=== PATIENT | female | born 1990 | race Caucasian/White ===

== ENCOUNTER 2016-06-09 16:44 | Outpatient (CLI) | payer MEDICAID ==
[2016-06-09 17:40] LABS: APPEARANCE,URINE CLEAR; BILIRUBIN,URINE NEGATIVE (NEGATIVE); GLUCOSE, URINE NEGATIVE (NEGATIVE); KETONES,URINE NEGATIVE (NEGATIVE); LEUKOCYTE ESTERASE,URINE NEGATIVE (NEGATIVE); NITRITE,URINE NEGATIVE (NEGATIVE); PROTEIN,URINE NEGATIVE (NEGATIVE); URINE SPECIFIC GRAVITY 1.009; UROBILINOGEN,URINE NEGATIVE mg/dL (<2.0)
[2016-06-09 18:02] LABS: URINE BARBITURATES SCREEN NEGATIVE; URINE METHADONE SCREEN NEGATIVE; URINE PHENCYCLIDINE SCREEN NEGATIVE
--- NOTE | 2016-06-09 18:12 | Non Stress Test Report ---
Non Stress Test Datetime Report Generated by CPN: 06/09/2016 18:12 DEMOGRAPHIC EGA NST: 34.6 INDICATION Indication for Study: Ordered by Provider Indication for Study (NST) Other: LC MONITORING Monitor Explained: Monitor Explained; Test Explained; Patient Verbalized Understanding Time on Monitor: 06/09/2016 17:07 Time off Monitor: 06/09/2016 17:53 NST Duration: 46 NST INTERVENTIONS NST Interventions: PO Hydration Physician Notified NST: Dr. Jonas BABY A: [id number] BABY A Movement : Present Contraction Frequency : occ FHR Baseline : 135 Accelerations : 15X15 Decelerations : None Variability : Moderate 6-25bpm NST Review: Meets Criteria for Reactive NST NST Review and Verified By : Chun manriquez RNC NST Results: Reactive NST REPORT Report Trigger: Send Report
--- NOTE | 2016-06-10 04:47 | L&D Admission Assessment ---
LD ADM ASMT Datetime Report Generated by CPN: 06/10/2016 04:45 WEIGHT Weight (lb): 169 (06/09/2016 17:06:QS system process) Weight (kg): 76.8 (06/09/2016 17:06:QS system process) BMI: 30.9 (06/09/2016 17:06:QS system process) PAIN Pain Scale: 3 (06/09/2016 17:21:Malinda Carlisle RN) Pain Presence: Constant (06/09/2016 17:21:Malinda Harmonmes, RN) Pain Type: Pressure; Ache (06/09/2016 17:21:Malinda Orestes, RN) Pain Location: Back; Perineum (06/09/2016 17:21:Malinda Orestes, RN) Pain Related to Contraction: Unsure (06/09/2016 17:21:Malinda Orestes, RN) Pain Comments: pt states she has been up on her feet all day working (06/09/2016 17:13:Malinda Carlisle, RN) NEURO Level of Consciousness: Fully Conscious (06/09/2016 17:21:Malinda Orestes, RN) Headache: Denies (06/09/2016 17:21:Malinda Orestes, RN) Dizziness: No (06/09/2016 17:21:Malinda Orestes, RN) Blurred Vision: No (06/09/2016 17:21:Malinda Orestes, RN) Extremity Numbness/Tingling : None (06/09/2016 17:21:Malinda Orestes, RN) Extremity Movement: Full Range of Motion (06/09/2016 17:21:Malinda Orestes, RN) CARDIOVASCULAR Heart Rhythm: Regular (06/09/2016 17:21:Malinda Orestes, RN) Nailbeds: [place] (06/09/2016 17:21:Malinda Orestes, RN) Capillary Refill: Less than 3 Seconds (06/09/2016 17:21:Malinda Orestes, RN) Lower Extremities Edema: None (06/09/2016 17:21:Malinda Orestes, RN) Lower Extremities Edema Degree: None (06/09/2016 17:21:Malinda Orestes, RN) Upper Extremities Edema: None (06/09/2016 17:21:Malinda Orestes, RN) Upper Extremities Edema Degree: None (06/09/2016 17:21:Malinda Orestes, RN) Facial Edema: None (06/09/2016 17:21:Malinda Orestes, RN) RESPIRATORY Respiratory Effort: Unlabored; Regular Rhythm; Equal Expansion (06/09/2016 17:21:Malinda Orestes, RN) Breath Sounds, Left: Clear and Equal (06/09/2016 17:21:Malinda Orestes, RN) Breath Sounds, Right: Clear and Equal (06/09/2016 17:21:Malinda Orestes, RN) Cough Productivity: None (06/09/2016 17:21:Malinda Orestes, RN) GASTROINTESTINAL Nausea/Vomiting: Denies (06/09/2016 17:21:Malinda Carlisle RN) Bowel Sounds: Normoactive (06/09/2016 17:21:Malinda Carlisle RN) RUQ Epigastric Pain: Denies (06/09/2016 17:21:Malinda Carlisle RN) Bowel Patterns: Soft, Formed Stool (06/09/2016 17:21:Malinda Carlisle RN) Hemorrhoids: None (06/09/2016 17:21:Malinda Carlisle RN) Diet Type: Regular diet (06/09/2016 17:21:Malinda Carlisle RN) Last Meal: 06/09/2016 13:00 (06/09/2016 17:21:Malinda Carlisle RN) GENITOURINARY Bladder: Nondistended (06/09/2016 17:21:Malinda Carlisle RN) Frequency of Urination: No (06/09/2016 17:21:Malinda Carlisle RN) Urination Burning: No (06/09/2016 17:21:Malinda Carlisle RN) CVA Tenderness: No (06/09/2016 17:21:Malinda Carlisle RN) Vaginal Bleeding: None (06/09/2016 17:21:Malinda Carlisle RN) Vaginal Discharge Amount: None (06/09/2016 17:21:Malinda Carlisle RN) Vaginal Discharge Color: N/A (06/09/2016 17:21:Malinda Orestes, RN) INTEGUMENTARY Skin Color: Normal for Race (06/09/2016 17:21:Malinda Carlisle, RN) Skin Temperature: Warm (06/09/2016 17:21:Malinda Carlisle, RN) Skin Moisture: Dry (06/09/2016 17:21:Malinda Carlisle, RN) AMBROSIO SKIN ASSESSMENT Ambrosio Scale Sensory Perception: No Impairment- Responds to verbal commands. Has no sensory deficit which would limit ability to feel or voice pain or discomfort (06/09/2016 17:21:Malinda Carlisle RN) Ambrosio Scale Moisture: Rarely Moist- Skin is usually dry. Linen only requires changing at routine intervals (06/09/2016 17:21:Malinda Carlisle RN) Ambrosio Scale Activity: Walks Frequently- Walks outside the room at least twice a day and inside room at least every 2 hours during the day. (06/09/2016 17:21:Malinda Carlisle RN) Ambrosio Scale Mobility: No Limitations- Makes major and frequent changes in position without assistance (06/09/2016 17:21:Malinda Carlisle RN) Ambrosio Scale Nutrition: Excellent- Eats most of every meal. Never refuses a meal. Usually eats a total of 4 or more servings of meat and dairy products. Occasionally eats between meals. Does not require supplementation (06/09/2016 17:21:Malinda Carlisle RN) Ambrosio Scale Friction and Shear: No Apparent Problem- Moves in bed and in chair independently and has sufficient muscle strength to lift up completely during move. Maintains good position in bed or chair at all times (06/09/2016 17:21:Malinda Carlisle RN) Ambrosio Scale Total: 23 (06/09/2016 17:21:QS system process) Ambrosio Scale Risk: No Risk of Pressure Ulcer Noted at this Time (06/09/2016 17:21:QS system process) SUPPORT Emotional State: Calm/Relaxed (06/09/2016 17:21:Malinda Carlisle RN) SAFETY Call [place] Within Reach: Yes (06/09/2016 17:21:Malinda Carlisle RN) Side Rails Up: Yes (06/09/2016 17:21:Malinda Carlisle RN) Bed Wheels Locked: Yes (06/09/2016 17:21:Malinda Carlisle RN) Arm Bands Present: Yes (06/09/2016 17:21:Malinda Carlisle RN) Isolation: [place] (06/09/2016 17:21:Malinda Carlisle RN)
--- NOTE | 2016-06-10 04:47 | L&D General Admission ---
General Admit Datetime Report Generated by CPN: 06/10/2016 04:45 INFORMATION Patient Age: 25 (05/30/2015 23:26:QS system process) EDC: 07/15/2016 00:00 (06/09/2016 17:03:Malinda Carlisle RN) : 6 (06/09/2016 17:03:Malinda Carlisle RN) Para: 4 (06/09/2016 18:04:Malinda Carlisle RN) Para: 4 (06/09/2016 17:03:Malinda Carlisle RN) Term: 4 (06/09/2016 17:03:Malinda Carlisle RN) : 0 (06/09/2016 17:03:Malinda Carlisle RN) Spontaneous Abortions: 0 (06/09/2016 17:03:Malinda Carlisle RN) Induced Abortions: 0 (06/09/2016 17:03:Malinda Carlisle RN) Livin (06/09/2016 17:03:Malinda Carlisle RN) Cesareans: 0 (06/09/2016 17:03:Malidna Carlisle RN) VBACs: 0 (06/09/2016 17:03:Malinda Carlisle RN) Ectopic: 1 (06/09/2016 17:03:Malinda Carlisle RN) Multiple Births: 0 (06/09/2016 17:03:Malinda Carlisle RN) Baby, Number in Womb: 1 (06/09/2016 18:04:Malinda Carlisle RN) Baby, Number in Womb: 1 (06/09/2016 17:03:Malinda Carlisle RN) CARE Primary Ear Specialist: [facility] (06/09/2016 17:03:Malinda Carlisle RN) Height (in): 61 (06/09/2016 17:06:QS system process) Height (in): 62 (02/03/2016 10:19:QS system process) Height (in): 62 (01/12/2016 21:54:QS system process) Height (in): 62 (12/01/2015 08:22:QS system process) Height (in): 62 (11/25/2015 21:42:QS system process) Height (in): 62 (11/19/2015 19:22:QS system process) Height (in): 62 (09/04/2015 15:53:QS system process) Height (in): 62 (08/26/2015 18:17:QS system process) Height (in): 62 (05/31/2015 04:38:QS system process) Height (in): 62 (05/30/2015 23:26:QS system process) ALLERGIES Medication Allergy: No (06/09/2016 17:03:Malinda Carlisle RN) Medication Allergies: No Known Allergies (11/25/2015) (12/01/2015 08:22:QS system process) Medication Allergies: No Known Allergies (09/04/2015) (11/19/2015 19:22:QS system process) Medication Allergies: No Known Allergies (11/04/2013) (05/30/2015 23:26:QS system process) Latex Allergy: No Latex Allergies (06/09/2016 17:03:Malinda Carlisle RN) COMMUNICATION Primary Language: Danish (06/09/2016 17:03:Malinda Carlisle RN) Medical Tx Preferred Language: Danish (06/09/2016 17:03:Malinda Carlisle, RN) DEMOGRAPHICS Address: [address] [place] [address] (11/25/2015 21:42:QS system process) Address: [address] [place] [address] (11/19/2015 19:22:QS system process) Address: [address] [place] [address] (09/04/2015 15:53:QS system process) Address: [address] [place] [address] (05/30/2015 23:26:QS system process) Zipcode: [address] (11/25/2015 21:42:QS system process) Zipcode: [address] (05/30/2015 23:26:QS system process) Home (09/04/2015 15:53:QS system process) Home (05/30/2015 23:26:QS system process) Work (02/03/2016 10:19:QS system process) SSN: [id number] (05/30/2015 23:26:QS system process) Next of Kin Name: BHARTI ABRRERA (11/25/2015 21:42:QS system process) Next of Kin Name: TRIXIE VANIA (05/30/2015 23:26:QS system process) Next of Kin (11/25/2015 21:42:QS system process) Next of Kin (05/30/2015 23:26:QS system process) Next of Kin Relationship: FA (11/25/2015 21:42:QS system process) Next of Kin Relationship: OR (05/30/2015 23:26:QS system process) Date of : 1990 (05/30/2015 23:26:QS system process) Marital Status: (05/30/2015 23:26:QS system process) Sex: Female (05/30/2015 23:26:QS system process) Race: (05/30/2015 23:26:QS system process) Ethnicity: Non- or (05/30/2015 23:26:QS system process) Faith: None (05/30/2015 23:26:QS system process) LABS Hemoglobin: 12.2 (11/25/2015 22:04:QS system process) Hemoglobin: 12.3 (11/19/2015 19:30:QS system process) Hematocrit: 37.1 (11/25/2015 22:04:QS system process) Hematocrit: 38.4 (11/19/2015 19:30:QS system process) MCV: 86 (11/25/2015 22:04:QS system process) MCV: 87 (11/19/2015 19:30:QS system process)
--- NOTE | 2016-06-10 04:47 | Antepartum Discharge Summary ---
Antepartum DC Datetime Report Generated by CPN: 06/10/2016 04:45 DIET/ACTIVITY/RESTRICTIONS Diet: Regular (06/09/2016 18:04:Malinda Orestes, RN) Activity: Normal Activity (06/09/2016 18:04:Malinda Orestes, RN) TEACHING/INSTRUCTIONS/REFERRALS Instructions Given To: pt (06/09/2016 18:04:Malinda Carlisle, RN) Instructions Understood: Patient Verbalized Understanding (06/09/2016 18:04:Malinda Orestes, RN) Referrals: None (06/09/2016 18:04:Malinda Carlisle RN) Educational Materials- Other: kick counts (06/09/2016 18:04:Malinda Carlisle RN) DISCHARGE INFORMATION Discharged AMA: No (06/09/2016 18:04:Malinda Carlisle RN) Discharge Date/Time: 06/09/2016 17:58 (06/09/2016 18:04:Malinda Carlisle RN) Discharged To: Home (06/09/2016 18:04:Malinda Carlisle RN) Discharge Provider Name: Dr. Mcdaniel (06/09/2016 18:04:Malinda Carlisle RN) Discharge Method: Ambulatory (06/09/2016 18:04:Malinda Carlisle RN) Condition: Stable (06/09/2016 18:04:Malinda Carlisle RN) FOLLOW UP INFORMATION Follow Up With: [facility] (06/09/2016 18:04:Malinda Carlisle RN) Follow Up On: As Scheduled (06/09/2016 18:04:Malinda Carlisle RN) Follow Up Phone Number: [facility] - (06/09/2016 18:04:Malinda Carlisle RN) Comments: Pt ambulated off unit in stable condition with [place] pitcher in hand, instructed to drink 4-6 pitchers daily, pt refused Vistiril and was instructed to follow up at scheduled appointment at [facility] tomorrow. Pt instructed on when to return to hospitla. No questions or concerns expressed by pt at this time. (06/09/2016 18:04:Malinda Carlisle RN)
--- NOTE | 2016-06-10 04:47 | L&D Flow Sheet ---
LD Flowsheet Datetime Report Generated by CPN: 06/10/2016 04:45 Datetime: 06/09/2016 17:50 Communication Communication Comments: Order recieved from DrKeshav Jonas to d/c pt home. Pt unable to take offered Vistiril becase she has nobody to pick her up and she needs to drive home. PT has appointment at [facility] in the morning (Zee Butler, [facility]) Datetime: 06/09/2016 17:46 Vaginal Exam Exam by: A. Orestes RN (Zee Luke, RNC) Vaginal Exam Comments: closed/thick/high (Zee Luke, RNC) Datetime: 06/09/2016 17:21 Pain Pain Scale: 3 (Malinda Orestes, RN) Pain Presence: Constant (Malinda Orestes, RN) Pain Type: Pressure; Ache (Malinda Orestes, RN) Pain Location: Back; Perineum (Malinda Orestes, RN) Pain Relief Measures: Comfort Measures (Malinda Orestes, RN) Vaginal Bleeding: None (Malinda Orestes, RN) Maternal Assessment Level of Consciousness: Fully Conscious (Malinda Orestes, RN) Headache: Denies (Malinda Orestes, RN) Breath Sounds, Left: Clear and Equal (Malinda Orestes, RN) Breath Sounds, Right: Clear and Equal (Malinda Orestes, RN) Nausea/Vomiting: Denies (Malinda Orestes, RN) RUQ Epigastric Pain: Denies (Malinda Orestes, RN) Datetime: 06/09/2016 17:13 Pain Assessment Comments: pt states she has been up on her feet all day working (Malinda Orestes, RN) Patient Care I/O Interventions: Popsicle; Clear Liquids Given (Malinda Orestes, RN) Datetime: 06/09/2016 17:08 Vital Signs NBP Sys/Lizeth/Mean (mmHg): 96 (QS system process) : 57 (QS system process) : 69 (QS system process) Pulse: 76 (QS system process)
--- NOTE | 2016-06-10 04:47 | L&D Discharge Summary ---
OB Discharge Summary Datetime Report Generated by CPN: 06/10/2016 04:45 DISCHARGE DIAGNOSIS Diagnosis/Symptoms: Reassuring Surveillance - Annotate Details Gestation: 34.6 Number of Babies in Womb: 1 Parity: 4 DIET/ACTIVITY/RESTRICTIONS Diet: Regular Activity: Normal Activity TEACHING/INSTRUCTIONS/REFERRALS Instructions Given To: pt Instructions Understood: Patient Verbalized Understanding Referrals: None Educational Materials- Other: kick counts DISCHARGE INFORMATION Discharged AMA: No Discharge Date/Time: 06/09/2016 17:58 Discharged To: Home Discharge Provider Name: Jonas Discharge Method: Ambulatory Condition: Stable FOLLOW UP INFORMATION Follow Up With: [facility] Follow Up On: As Scheduled Follow Up Phone Number: [facility] - Comments: Pt ambulated off unit in stable condition with [place] pitcher in hand, instructed to drink 4-6 pitchers daily, pt refused Vistiril and was instructed to follow up at scheduled appointment at [facility]. Pt instructed on when to return to hospitla. No questions or concerns expressed by pt at this time.
--- NOTE | 2016-06-10 04:47 | L&D Current Admission ---
Current Admit Datetime Report Generated by CPN: 06/10/2016 04:45 ADMISSION INFORMATION Chief Complaint: pressure, low back pain (06/09/2016 17:21:Malinda Carlisle RN)
== END 2016-06-09 17:58 | disposition home or self-care (01) ==
LOC: LC 16:44
PROVIDERS: ATTEND Obstetrics & Gynecology
PROC: 4A1HXCZ Monitoring of Products of Conception, Cardiac Rate, External Approach (ICD-10-PCS; principal; 2016-06-09)
DX: Z34.93 Encounter for supervision of normal pregnancy, unspecified, third trimester (principal); Z3A.34 34 weeks gestation of pregnancy
CPT/HCPCS: 59025; 80307; 81001

== ENCOUNTER 2016-06-22 18:37 | Outpatient (CLI) | payer MEDICAID ==
[2016-06-22 19:14] LABS: APPEARANCE,URINE CLOUDY; BILIRUBIN,URINE NEGATIVE (NEGATIVE); GLUCOSE, URINE NEGATIVE (NEGATIVE); KETONES,URINE NEGATIVE (NEGATIVE); LEUKOCYTE ESTERASE,URINE LARGE (NEGATIVE); NITRITE,URINE NEGATIVE (NEGATIVE); PROTEIN,URINE NEGATIVE (NEGATIVE); URINE SPECIFIC GRAVITY 1.005; UROBILINOGEN,URINE NEGATIVE mg/dL (<2.0)
[2016-06-22 19:34] LABS: URINE BARBITURATES SCREEN NEGATIVE; URINE METHADONE SCREEN NEGATIVE; URINE OPIATES LOW NEGATIVE; URINE PHENCYCLIDINE SCREEN NEGATIVE
[2016-06-22 19:47] LABS: AMNISURE (ROM) NEGATIVE (NEGATIVE)
== END 2016-06-22 20:23 | disposition home or self-care (01) ==
LOC: ER 18:37 → LC 20:23
PROVIDERS: ATTEND Obstetrics & Gynecology
PROC: 4A1HXCZ Monitoring of Products of Conception, Cardiac Rate, External Approach (ICD-10-PCS; principal; 2016-06-22)
DX: O47.03 False labor before 37 completed weeks of gestation, third trimester (principal); Z3A.36 36 weeks gestation of pregnancy
CPT/HCPCS: 59025; 80307; 81001; 84112

== ENCOUNTER 2016-06-23 11:16 | Outpatient (CLI) | payer MEDICAID ==
[2016-06-23] MEDS ORDERED: LOPERAMIDE HCL 2 MG CAPSULE ONE (11:49)
--- NOTE | 2016-06-23 12:01 | L&D Flow Sheet ---
LD Flowsheet Datetime Report Generated by CPN: 06/23/2016 12:00 Datetime: 06/23/2016 11:53 Medication Comments: Immodium PO (Barb Marlatt, RN) Datetime: 06/23/2016 11:36 NBP Sys/Lizeth/Mean (mmHg): 101 (QS system process) : 56 (QS system process) : 76 (QS system process) Pulse: 76 (QS system process) Datetime: 06/23/2016 11:35 Level of Consciousness: Fully Conscious (Barb Rizo RN) DTR's/Clonus: DTRs 2+; No Clonus (Barb Rizo RN) Headache: Denies (Barb Rizo RN) Breath Sounds, Left: Clear and Equal (Barb Rizo RN) Breath Sounds, Right: Clear and Equal (Barb Rizo RN) Nausea/Vomiting: Denies (Barb Rizo RN) RUQ Epigastric Pain: Denies (Barb Rizo RN)
[2016-06-23 12:43] LABS: APPEARANCE,URINE CLOUDY; BILIRUBIN,URINE NEGATIVE (NEGATIVE); GLUCOSE, URINE NEGATIVE (NEGATIVE); KETONES,URINE 20 mg/dL (NEGATIVE); LEUKOCYTE ESTERASE,URINE LARGE (NEGATIVE); NITRITE,URINE NEGATIVE (NEGATIVE); PROTEIN,URINE NEGATIVE (NEGATIVE); URINE SPECIFIC GRAVITY 1.006; UROBILINOGEN,URINE NEGATIVE mg/dL (<2.0)
[2016-06-23 13:06] LABS: URINE BARBITURATES SCREEN NEGATIVE; URINE METHADONE SCREEN NEGATIVE; URINE OPIATES LOW NEGATIVE; URINE PHENCYCLIDINE SCREEN NEGATIVE
--- NOTE | 2016-06-23 13:40 | Non Stress Test Report ---
Non Stress Test Datetime Report Generated by CPN: 06/23/2016 13:40 DEMOGRAPHIC EGA NST: 36.6 INDICATION Indication for Study: Other Indication for Study (NST) Other: LC MONITORING Monitor Explained: Monitor Explained; Test Explained; Patient Verbalized Understanding Time on Monitor: 06/23/2016 11:35 Time off Monitor: 06/23/2016 13:25 NST Duration: 110 NST INTERVENTIONS NST Interventions: PO Hydration; IV Fluids Physician Notified NST: P. Flynn CNM BABY A Movement : Present Contraction Frequency : 4-11 FHR Baseline : 130 Accelerations : 15X15 Decelerations : None Variability : Moderate 6-25bpm NST Review: Meets Criteria for Reactive NST NST Review and Verified By : Heraclio Johnson RN NST Results: Reactive NST REPORT Report Trigger: Send Report
== END 2016-06-23 13:33 | disposition home or self-care (01) ==
LOC: LC 11:16
PROVIDERS: ATTEND Obstetrics & Gynecology
PROC: 4A1HXCZ Monitoring of Products of Conception, Cardiac Rate, External Approach (ICD-10-PCS; principal; 2016-06-23)
DX: O47.03 False labor before 37 completed weeks of gestation, third trimester (principal); O99.283 Endocrine, nutritional and metabolic diseases complicating pregnancy, third trimester; E86.0 Dehydration; Z3A.36 36 weeks gestation of pregnancy
CPT/HCPCS: 59025; 81005; 80307; J3490

== ENCOUNTER 2016-06-24 14:43 | Outpatient (CLI) | payer MEDICAID ==
[2016-06-24 15:19] LABS: APPEARANCE,URINE CLEAR; BILIRUBIN,URINE NEGATIVE (NEGATIVE); GLUCOSE, URINE NEGATIVE (NEGATIVE); KETONES,URINE NEGATIVE (NEGATIVE); LEUKOCYTE ESTERASE,URINE TRACE (NEGATIVE); NITRITE,URINE NEGATIVE (NEGATIVE); PROTEIN,URINE NEGATIVE (NEGATIVE); URINE SPECIFIC GRAVITY 1.006
[2016-06-24 15:52] LABS: URINE BARBITURATES SCREEN NEGATIVE; URINE METHADONE SCREEN NEGATIVE; URINE OPIATES LOW NEGATIVE; URINE PHENCYCLIDINE SCREEN NEGATIVE
--- NOTE | 2016-06-24 16:01 | L&D Flow Sheet ---
LD Flowsheet Datetime Report Generated by CPN: 06/24/2016 16:00 Datetime: 06/24/2016 15:21 Provider Reviewed Strip: Yes (Mariela Camp, RNC) Communication: Report Given to @ K Cooper CNM (Mariela Camp, RNC) Communication Comments: Provider given verbal report of arrival, history complaint and cervical exam. Plan discussed and orders received for discharge to home in one hour with no cervical change and reactive nst (Mariela Camp, RNC) Datetime: 06/24/2016 15:15 Frequency (min): 7-10 ([facility], [facility]) Quality: Mild ([facility], [facility]) Duration (sec): 40-45 [facility] Resting Tone (Palpate): Relaxed (Annotations: uterus soft to palpation) ([facility], [facility]) Pain Scale: 2 ([facility] Pain Presence: Intermittent ([facility], [facility]) Pain Type: Contraction ([facility], [facility]) Pain Location: Abdomen ([facility], [facility]) Pain Goal: 2 ([facility], [facility]) Pain Relief Measures: Comfort Measures ([facility], [facility]) Pain Coping: Talking Through Contractions (Annotations: smiling talking with fob no apparent distress noted) ([facility], [facility]) Membrane Status: Intact ([facility], [facility]) Vaginal Bleeding: None ([facility], [facility]) Level of Consciousness: Fully Conscious ([facility], [facility]) DTR's/Clonus: DTRs 2+; No Clonus ([facility], [facility]) Headache: Denies ([facility], [facility]) Breath Sounds, Left: Clear and Equal ([facility], [facility]) Breath Sounds, Right: Clear and Equal ([facility], RNC) Nausea/Vomiting: Denies ([facility], RNC) RUQ Epigastric Pain: Denies ([facility], [facility]) LaborFlag: Labor (QS system process) Datetime: 06/24/2016 15:12 Dilatation (cm): 4.5 ([facility], [facility]) Effacement (%): 50 ([facility], [facility]) Station: -2 ([facility], [facility]) Exam by: Camp, S ([facility], [facility]) Vaginal Bleeding: None ([facility]) Cervix, Consistency: Soft ([facility]) Cervix, Position: Midposition ([facility]) Datetime: 06/24/2016 15:09 Temperature (F): 98.1 ([facility], [facility]) Temperature (C): 36.7 (QS system process) LaborFlag: Labor (QS system process) Datetime: 06/24/2016 15:02 NBP Sys/Lizeth/Mean (mmHg): 91 (QS system process) : 59 (QS system process) : 69 (QS system process) Pulse: 113 (QS system process) Respirations: 16 (Mariela Camp, C) LaborFlag: Labor (QS system process) Datetime: 06/24/2016 14:30 Stage of : Labor ([facility]iela Middleton, [facility])
== END 2016-06-24 16:13 | disposition home or self-care (01) ==
LOC: LC 14:43
PROVIDERS: ATTEND Obstetrics & Gynecology
PROC: 4A1HXCZ Monitoring of Products of Conception, Cardiac Rate, External Approach (ICD-10-PCS; principal; 2016-06-24)
DX: O47.1 False labor at or after 37 completed weeks of gestation (principal); Z3A.37 37 weeks gestation of pregnancy
CPT/HCPCS: 59025; 80307; 81005

== ENCOUNTER 2016-06-30 16:44 | Outpatient (CLI) | payer MEDICAID ==
--- NOTE | 2016-06-30 16:59 | Non Stress Test Report ---
Non Stress Test Datetime Report Generated by CPN: 06/30/2016 16:59 DEMOGRAPHIC EGA NST: 37.0 INDICATION Indication for Study: Ordered by Provider VITAL SIGNS Temperature - NST: 98.1 Pulse - NST: 90 RESP - NST: 18 NBPSYS NST: 111 NBPDIA NST: 65 MONITORING Monitor Explained: Monitor Explained; Test Explained; Patient Verbalized Understanding Time on Monitor: 06/24/2016 15:20 Time off Monitor: 06/24/2016 16:05 NST Duration: 45 NST INTERVENTIONS NST Interventions: PO Hydration; Reposition Patient Physician Notified NST: Cooper, K BABY A: [id number] BABY A Movement : Present Contraction Frequency : irregular FHR Baseline : 150 Accelerations : 15X15 Decelerations : None Variability : Moderate 6-25bpm NST Review: Meets Criteria for Reactive NST NST Review and Verified By : Freddy Simpson RNC NST Results: Reactive NST REPORT Report Trigger: Send Report
[2016-06-30 17:50] LABS: APPEARANCE,URINE SLIGHTLY-CLOUDY; BILIRUBIN,URINE NEGATIVE (NEGATIVE); GLUCOSE, URINE 50 mg/dL (NEGATIVE); KETONES,URINE NEGATIVE (NEGATIVE); LEUKOCYTE ESTERASE,URINE MODERATE (NEGATIVE); NITRITE,URINE NEGATIVE (NEGATIVE); PROTEIN,URINE 100 mg/dL (NEGATIVE); URINE SPECIFIC GRAVITY 1.006; UROBILINOGEN,URINE NEGATIVE mg/dL (<2.0)
--- NOTE | 2016-06-30 18:00 | L&D Flow Sheet ---
LD Flowsheet Datetime Report Generated by CPN: 06/30/2016 18:00 Datetime: 06/30/2016 17:50 Patient Care IV/Blood Work: Labs Drawn (Serina Jonas, RN) Datetime: 06/30/2016 17:45 Patient Care IV/Blood Work: IV Started; IV Infusing per Order (Serina Jonas, RN) Datetime: 06/30/2016 17:41 Communication Comments: order received from Dr. Nixon to start IV and infuse LR at 125 mL/hr, order received for CBC (Serina Jonas, RN) Datetime: 06/30/2016 17:31 NBP Sys/Lizeth/Mean (mmHg): 100 (QS system process) : 55 (QS system process) : 73 (QS system process) Pulse: 93 (QS system process) LaborFlag: OB Triage (QS system process) Datetime: 06/30/2016 17:28 Membrane Status: Intact (Serina Mcdaniel, RN) Vaginal Bleeding: Moderate (Serina Mcdaniel, RN) DTR's/Clonus: DTRs 2+; No Clonus (Serina Mcdaniel, RN) Headache: Denies (Serina Mcdaniel, RN) Datetime: 06/30/2016 17:17 Maternal Assessment Level of Consciousness: Fully Conscious (Serina Mcdaniel, RN) DTR's/Clonus: DTRs 2+; No Clonus (Serina Mcdaniel, RN) Headache: Denies (Serina Mcdaniel, RN) Breath Sounds, Left: Clear and Equal (Serina Mcdaniel, RN) Breath Sounds, Right: Clear and Equal (Serinacherie Mcdaniel, RN) Nausea/Vomiting: Denies (Serina Jonas, RN) RUQ Epigastric Pain: Denies (Serina Mcdaniel, RN) Datetime: 06/30/2016 17:16 NBP Sys/Lizeth/Mean (mmHg): 108 (QS system process) : 65 (QS system process) : 81 (QS system process) Pulse: 105 (QS system process) LaborFlag: OB Triage (QS system process) Datetime: 06/30/2016 17:14 Vaginal Exam Dilatation (cm): 5.0 (Serina Mcdaniel, RN) Effacement (%): 50 (Serina Mcdaniel, RN) Station: -3 (Serina Mcdaniel, RN) Exam by: Dr. Nixon (Serina Jonas, RN) Communication Communication: Provider at Bedside (Serina Jonas, RN) Datetime: 06/30/2016 17:07 Vital Signs Stage of : OB Triage (Serina Jonas, RN) Datetime: 06/30/2016 17:01 NBP Sys/Lizeth/Mean (mmHg): 127 (QS system process) : 86 (QS system process) : 101 (QS system process) Pulse: 109 (QS system process) LaborFlag: Labor (QS system process) Datetime: 06/30/2016 17:00 Communication Comments: patient to L_D for bright red vaginal bleeding after intercourse, abdomen relaxed, patient in no pain, Dr. Nixon reviewing strip (Serina Mcdaniel RN)
[2016-06-30 18:10] LABS: ABSOLUTE LYMPHOCYTES (AUTO) 1.5 10^3/uL (0.5-4.7); ABSOLUTE MONOCYTES (AUTO) 0.7 10^3/uL (0.1-1.4); ABSOLUTE NEUT (AUTO) 5.5 10^3/uL (1.7-8.2); BASOPHILS % (AUTO) 0.3 % (0-2); EOSINOPHILS % (AUTO) 0.5 % (0-6); HEMATOCRIT 28.2 % (36.0-47.0); HEMOGLOBIN 9.2 g/dL (12.0-15.5); HGB HCT DIFFERENCE -0.6; LYMPHOCYTES % (AUTO) 19.2 % (13-45); MEAN CORPUSCULAR HEMOGLOBIN 25.7 pg (27.0-33.4); MEAN CORPUSCULAR HGB CONC 32.6 g/dL (32.0-36.0); MEAN CORPUSCULAR VOLUME 79 fl (80-97); MONOCYTES % (AUTO) 9.2 % (3-13); RED BLOOD COUNT 3.58 10^6/uL (3.72-5.28); RED CELL DISTRIBUTION WIDTH 14.1 % (11.5-14.0); SEGMENTED NEUTROPHILS % (AUTO) 70.8 % (42-78); WHITE BLOOD COUNT 7.7 10^3/uL (4.0-10.5)
[2016-06-30 18:17] LABS: URINE BARBITURATES SCREEN NEGATIVE; URINE METHADONE SCREEN NEGATIVE; URINE OPIATES LOW NEGATIVE; URINE PHENCYCLIDINE SCREEN NEGATIVE
--- NOTE | 2016-06-30 20:00 | L&D Flow Sheet ---
LD Flowsheet Datetime Report Generated by CPN: 06/30/2016 20:00 Datetime: 06/30/2016 19:46 NBP Sys/Lizeth/Mean (mmHg): 105 (QS system process) : 60 (QS system process) : 76 (QS system process) Pulse: 75 (QS system process) LaborFlag: OB Triage (QS system process) Datetime: 06/30/2016 19:41 Vaginal Bleeding: None (Crystal Abi, RN) Datetime: 06/30/2016 19:31 NBP Sys/Lizeth/Mean (mmHg): 105 (QS system process) : 61 (QS system process) : 76 (QS system process) Pulse: 87 (QS system process) LaborFlag: OB Triage (QS system process) Datetime: 06/30/2016 19:25 Monitor Mode: External; Palpation (Crystal Meredith, RN) Frequency (min): 1 (Crystal Meredith, RN) Quality: Mild (Crystal Abi, RN) Duration (sec): 50 (Crystal Abi, RN) Duration Criteria: Less than Two 120 Second Contractions (Crystal Abi, RN) Resting Tone (Palpate): Relaxed (Crystal Abi, RN) Monitor Mode: External US (Crystal Meredith, RN) FHR Baseline Rate : 140 (Crystal Abi, RN) Variability: Moderate 6-25 bpm (Crystal Meredith, RN) Accelerations: 15X15 (Crystal Meredith, RN) Decelerations: None (Crystal Abi, RN) Patient Position/Activity: Right Tilt; Semi-Fowlers (Crystal Meredith, RN) I/O Interventions: Clear Liquids Given (Crystal Abi, RN) Datetime: 06/30/2016 19:16 NBP Sys/Lizeth/Mean (mmHg): 106 (QS system process) : 60 (QS system process) : 76 (QS system process) Pulse: 93 (QS system process) LaborFlag: OB Triage (QS system process) Datetime: 06/30/2016 19:14 Level of Consciousness: Fully Conscious (Crystal Abi, RN) DTR's/Clonus: DTRs 1+; No Clonus (Crystal Meredith, RN) Headache: Denies (Crystal Abi, RN) Breath Sounds, Left: Clear and Equal (Crystal Meredith, RN) Breath Sounds, Right: Clear and Equal (Crystal Meredith, RN) Nausea/Vomiting: Denies (Crystal Meredith, RN) RUQ Epigastric Pain: Denies (Crystal Abi, RN) Datetime: 06/30/2016 19:01 NBP Sys/Lizeth/Mean (mmHg): 100 (QS system process) : 57 (QS system process) : 73 (QS system process) Pulse: 108 (QS system process) LaborFlag: OB Triage (QS system process) Datetime: 06/30/2016 19:00 Monitor Mode: External; Palpation (Serina Mcdaniel, RN) Resting Tone (Palpate): Relaxed (Serina Mcdaniel, RN) Contraction Comments: none (Serina Mcdaniel, MAXIMINO) Monitor Mode: External US (Serina Mcdaniel RN) FHR Baseline Rate : 140 (Serina Mcdaniel RN) FHR Baseline Changes: No Baseline Change (Serina Mcdaniel RN) Variability: Moderate 6-25 bpm (Serina Mcdaniel, RN) Accelerations: 15X15 (Serina Mcdaniel, RN) Decelerations: None (Serina Mcdaniel RN) Datetime: 06/30/2016 18:46 NBP Sys/Lizeth/Mean (mmHg): 103 (QS system process) : 56 (QS system process) : 74 (QS system process) Pulse: 92 (QS system process) LaborFlag: OB Triage (QS system process) Datetime: 06/30/2016 18:45 Communication Comments: Dr. Nixon notified of patient's lab results, no new orders received (Serina Mcdaniel RN) Datetime: 06/30/2016 18:32 NBP Sys/Lizeth/Mean (mmHg): 109 (QS system process) : 64 (QS system process) : 80 (QS system process) Pulse: 101 (QS system process) LaborFlag: OB Triage (QS system process) Datetime: 06/30/2016 18:30 Monitor Mode: External; Palpation (Serina Mcdaniel, RN) Frequency (min): x1 (Serina Mcdaniel, RN) Quality: Mild (Serina Jonas, RN) Duration (sec): 80 (Serina Mcdaniel, RN) Duration Criteria: Less than Two 120 Second Contractions (Serina Mcdaniel, RN) Pattern: Normal: <= 5 Contractions in 10 Minutes (Serina Mcdaniel, RN) Resting Tone (Palpate): Relaxed (Serina Mcdaniel, RN) Monitor Mode: External US (Serina Mcdaniel, RN) FHR Baseline Rate : 140 (Serina Mcdaniel, RN) FHR Baseline Changes: No Baseline Change (Serina Mcdaniel, RN) Variability: Moderate 6-25 bpm (Serina Jonas, RN) Accelerations: 15X15 (Serina Jonas, RN) Decelerations: None (Serina Mcdaniel, RN) Datetime: 06/30/2016 18:16 NBP Sys/Lizeth/Mean (mmHg): 100 (QS system process) : 59 (QS system process) : 76 (QS system process) Pulse: 96 (QS system process) LaborFlag: OB Triage (QS system process) Datetime: 06/30/2016 18:01 NBP Sys/Lizeth/Mean (mmHg): 105 (QS system process) : 59 (QS system process) : 78 (QS system process) Pulse: 90 (QS system process) LaborFlag: OB Triage (QS system process) Datetime: 06/30/2016 18:00 Monitor Mode: External; Palpation (Serina Mcdaniel RN) Frequency (min): x1 (Serina Mcdaniel RN) Quality: Mild (Serina Mcdaniel RN) Duration (sec): 90 (Serina Mcdaniel RN) Duration Criteria: Less than Two 120 Second Contractions (Serina Mcdaniel RN) Pattern: Normal: <= 5 Contractions in 10 Minutes (Serina Mcdaniel RN) Resting Tone (Palpate): Relaxed (Serina Mcdaniel RN) Monitor Mode: External US (Serina Mcdaniel RN) FHR Baseline Rate : 140 (Serina Mcdaniel RN) FHR Baseline Changes: No Baseline Change (Serina Mcdaniel RN) Variability: Moderate 6-25 bpm (Serina Mcdaniel RN) Accelerations: 15X15 (Serina Mcdaniel RN) Decelerations: None (Serina Mcdaniel RN)
== END 2016-06-30 20:10 | disposition home or self-care (01) ==
LOC: LC 16:44
PROVIDERS: ATTEND Obstetrics & Gynecology
PROC: 4A1HXCZ Monitoring of Products of Conception, Cardiac Rate, External Approach (ICD-10-PCS; principal; 2016-06-30)
DX: O46.93 Antepartum hemorrhage, unspecified, third trimester (principal); Z3A.37 37 weeks gestation of pregnancy
CPT/HCPCS: 36415; 59025; 80307; 81005; 85025

== ENCOUNTER 2016-07-11 10:21 | Inpatient (IN) | payer MEDICAID ==
[2016-07-11] MEDS ORDERED: RINGERS SOLUTION,LACTATED 1,000 ML IV PRN (10:43)
[2016-07-11 11:34] LABS: ABSOLUTE LYMPHOCYTES (AUTO) 1.2 10^3/uL (0.5-4.7); ABSOLUTE MONOCYTES (AUTO) 0.9 10^3/uL (0.1-1.4); ABSOLUTE NEUT (AUTO) 8.9 10^3/uL (1.7-8.2); BASOPHILS % (AUTO) 0.3 % (0-2); EOSINOPHILS % (AUTO) 0.2 % (0-6); HEMATOCRIT 33.4 % (36.0-47.0); HEMOGLOBIN 10.8 g/dL (12.0-15.5); LYMPHOCYTES % (AUTO) 10.9 % (13-45); MEAN CORPUSCULAR HEMOGLOBIN 25.5 pg (27.0-33.4); MEAN CORPUSCULAR HGB CONC 32.3 g/dL (32.0-36.0); MEAN CORPUSCULAR VOLUME 79 fl (80-97); MONOCYTES % (AUTO) 8.1 % (3-13); RED BLOOD COUNT 4.24 10^6/uL (3.72-5.28); RED CELL DISTRIBUTION WIDTH 15.2 % (11.5-14.0); SEGMENTED NEUTROPHILS % (AUTO) 80.5 % (42-78)
[2016-07-11 11:56] LABS: APPEARANCE,URINE SLIGHTLY-CLOUDY; BILIRUBIN,URINE NEGATIVE (NEGATIVE); GLUCOSE, URINE NEGATIVE (NEGATIVE); KETONES,URINE TRACE mg/dL (NEGATIVE); LEUKOCYTE ESTERASE,URINE MODERATE (NEGATIVE); NITRITE,URINE NEGATIVE (NEGATIVE); PROTEIN,URINE NEGATIVE (NEGATIVE); URINE SPECIFIC GRAVITY 1.004; UROBILINOGEN,URINE NEGATIVE mg/dL (<2.0)
--- NOTE | 2016-07-11 12:02 | L&D Flow Sheet ---
LD Flowsheet Datetime Report Generated by CPN: 07/11/2016 12:00 Datetime: 07/11/2016 11:44 Vital Signs NBP Sys/Lizeth/Mean (mmHg): 131 (QS system process) : 75 (QS system process) : 96 (QS system process) Pulse: 100 (QS system process) Communication LaborFlag: OB Triage (QS system process) Datetime: 07/11/2016 11:30 Uterine Activity Monitor Mode: External (Christina Elizabeth, RN) Frequency (min): 5-7 (Christina Elizabeth, RN) Quality: Mild (Christina Elizabeth, RN) Duration (sec): 60-90 (Christina Elizabeth, RN) Resting Tone (Palpate): Relaxed (Christina Elizabeth, RN) Assessment A Monitor Mode: External US (Christina Elizabeth, RN) FHR Baseline Rate : 145 (Christina Elizabeth, RN) Variability: Moderate 6-25 bpm (Christina Elizabeth, RN) Accelerations: 15X15 (Christina Elizabeth, RN) Decelerations: None (Christina Elizabeth, RN) Datetime: 07/11/2016 11:21 Patient Care IV/Blood Work: IV Started; IV Bolus Started (Meryl Urbina, RN) Datetime: 07/11/2016 11:00 Uterine Activity Monitor Mode: External (Christina Elizabeth, RN) Frequency (min): 2-4 (Christina Elizabeth, RN) Quality: Mild (Christina Elizabeth, RN) Duration (sec): 60-100 (Christina Elizabeth, RN) Resting Tone (Palpate): Relaxed (Christina Elizabeth, RN) Assessment A Monitor Mode: External US (Christina Elizabeth, RN) FHR Baseline Rate : 150 (Christina Elizabeth, RN) Variability: Moderate 6-25 bpm (Christina Elizabeth, RN) Accelerations: 15X15 (Christina Elizabeth, RN) Decelerations: Early (Christina Elizabeth, RN) Decelerations: None (Christina Elizabeth, RN) Datetime: 07/11/2016 10:45 Pain Pain Scale: 0 (Christina Sanchezs, RN) Pain Presence: None/Denies (Christina Johnson, RN) Pain Type: N/A (Christina Elizabeth, RN) Membrane Status: Ruptured (Christina Elizabeth, RN) Membranes Ruptured Date/Time: 07/11/2016 09:00 (Christina Johnson, RN) Membranes Rupture Method: Spontaneous (Christina Elizabeth, RN) Amniotic Fluid Color: Clear (Christina Elizabeth, RN) Amniotic Fluid Amount: Moderate (Christina Elizabeth, RN) Vaginal Bleeding: None (Christina Elizabeth, RN) Maternal Assessment Level of Consciousness: Fully Conscious (Christina Elizabeth, RN) DTR's/Clonus: DTRs 2+; No Clonus (Christina Elizabeth, RN) Headache: Denies (Christina Elizabeth, RN) Breath Sounds, Left: Clear and Equal (Christina Elizabeth, RN) Breath Sounds, Right: Clear and Equal (Christina Elizabeth, RN) Nausea/Vomiting: Denies (Christina Elizabeth, RN) RUQ Epigastric Pain: Denies (Christina Elizabeth, RN) Communication LaborFlag: OB Triage (QS system process) Datetime: 07/11/2016 10:44 Vital Signs NBP Sys/Lizeth/Mean (mmHg): 123 (QS system process) : 77 (QS system process) : 96 (QS system process) Pulse: 108 (QS system process) Communication LaborFlag: OB Triage (QS system process) Datetime: 07/11/2016 10:42 Vaginal Exam Dilatation (cm): 4.0 (Christina Johnson RN) Effacement (%): 50 (Christina Johnson, MAXIMINO) Station: -2 (Christina Johnson RN) Exam by: Chen Johnson RN (Christina Johnson, RN)
[2016-07-11 12:15] LABS: URINE BARBITURATES SCREEN NEGATIVE; URINE METHADONE SCREEN NEGATIVE; URINE OPIATES LOW NEGATIVE; URINE PHENCYCLIDINE SCREEN NEGATIVE
[2016-07-11] MEDS ORDERED: NALBUPHINE HCL INJ 10 MG/1 ML AMPULE ONE (12:50)
[2016-07-11] MEDS ORDERED: PROMETHAZINE HCL INJ 25 MG/1 ML VIAL ONE (12:50)
[2016-07-11] MEDS ORDERED: OXYTOCIN/NORMAL SALINE 20 UNIT/1,000 ML RTUINJ ONE (13:04)
[2016-07-11] MEDS ORDERED: MISOPROSTOL 0.2 MG TABLET ONE (13:04)
[2016-07-11] MEDS ORDERED: LIDOCAINE 1% INJ-PF (10 MG/ML) 30 ML SDV ONE (13:04)
[2016-07-11] MEDS ORDERED: METHYLERGONOVINE MALEATE INJ/PF 0.2 MG/1 ML AMPULE ONE (13:23)
[2016-07-11] MEDS ORDERED: ACETAMINOPHEN WITH CODEINE #3 TABLET ONE (13:34)
--- NOTE | 2016-07-11 14:01 | L&D Flow Sheet ---
LD Flowsheet Datetime Report Generated by CPN: 07/11/2016 14:00 Datetime: 07/11/2016 13:45 Stage of : Recovery (Christina Elizabeth, RN) Pain Scale: 3 (Christina Elizabeth, RN) Pain Presence: Intermittent (Christina Elizabeth, RN) Pain Type: Cramping (Christina Elizabeth, RN) Pain Location: Abdomen (Christina Elizabeth, RN) Pain Goal: 1 (Christina Elizabeth, RN) Pain Relief Measures: Pain Medication Given (Christina Elizabeth, RN) Datetime: 07/11/2016 13:44 NBP Sys/Lizeth/Mean (mmHg): 114 (QS system process) : 68 (QS system process) : 86 (QS system process) Pulse: 88 (QS system process) Datetime: 07/11/2016 13:30 Stage of : Recovery (Christina Elizabeth, RN) Pain Scale: 3 (Christina Elizabeth, RN) Pain Presence: Intermittent (Christina Elizabeth, RN) Pain Type: Cramping (Christina Elizabeth, RN) Pain Location: Abdomen (Hcristina Elizabeth, RN) Pain Goal: 1 (Christina Elizabeth, RN) Pain Relief Measures: Pain Medication Given (Christina Elizabeth, RN) Datetime: 07/11/2016 13:25 NBP Sys/Lizeth/Mean (mmHg): 116 (QS system process) : 77 (QS system process) : 92 (QS system process) Pulse: 108 (QS system process) Datetime: 07/11/2016 13:16 Stage of : Recovery (Mena Kory, RN) Datetime: 07/11/2016 13:07 Dilatation (cm): 9.0 (Christina Elizabeth, RN) Effacement (%): 100 (Christina Elizabeth, RN) Station: 0 (Christina Elizabeth, RN) Exam by: H. Elizabeth, RN (Christina Elizabeth, RN) Datetime: 07/11/2016 12:52 Analgesics/Sedatives: Nubain (mg) @ 10; Phenergan (mg) @ 12.5 (Christina Elizabeth, RN) Datetime: 07/11/2016 12:44 Dilatation (cm): 6.0 (Christina Johnson RN) Effacement (%): 80 (Christina Johnson RN) Station: -1 (Christina Johnson RN) Exam by: Chen Johnson RN (Christina Johnson RN)
--- NOTE | 2016-07-11 15:24 | Admission Physical ---
Datetime Report Generated by CPN: 07/11/2016 15:24 CURRENT ADMISSION Hx Assessment: The History has been Reviewed and is Current Chief Complaint: Suspected Ruptured Membranes Indication for Induction: Not Applicable Admit Plan: Admit to Unit; Initiate Labor Protocol Admit Plan- Other: gestational thrombocytopenia ALLERGIES Medication Allergies: No Medication Allergies: No Known Allergies (07/11/2016) Latex: No Latex Allergies Food Allergies: None Environmental Allergies: None OBSTETRICAL HISTORY EDC: 07/15/2016 00:00 : 6 Para: 4 Term: 4 : 0 SAB: 0 IAB: 0 Ectopic: 1 Livin Cesareans: 0 VBACs: 0 Multiple Births: 0 Gestational Diabetes: No Rh Sensitization: No Incompetent Cervix: No ROSA: No Infertility: No ART Treatment: No Uterine Anomaly: No IUGR: No Hx Previous C/S: No Macrosomia: No Hx Loss/Stillborn: No PIH: No Hx : No Placenta Previa/Abruption: Yes Depression/PP Depression: No PTL/PROM: No Post Hemorrhage: Yes Current Procedures: Ultrasound; NST Obstetrical History Comments: G1: 2005 , no complications G2: 2006 ectopic G3: 2007 , no complications G4: 2010 , PP hemorrhage G5: 2012 , PP hemorrhage G6: current , Partial abruption at beginning of current SEE RECORDS Alcohol: No Marijuana : No Cocaine: No Other Illicit Drugs: No Cigarettes: Former Smoker. [id number] MEDICAL HISTORY Diabetes: No Blood Transfusion: Yes Pulmonary Disease (Asthma, TB): No Breast Disease: No Hypertension: No Search Optimization Analyst Surgery: No Heart Disease: No Hosp/Surgery: Yes Autoimmune Disorder: No Anesthetic Complications: No Kidney Disease: No Abnormal Pap Smear: No Neuro/Epilepsy: No Psychiatric Disorders: No Other Medical Diseases: No Hepatitis/Liver Disease: No Significant Family History: No Varicosities/Phlebitis: No Trauma/Violence : No Thyroid Dysfunction: No Medical History Comments: Blood transfusion after ectopic , childbirth INFECTIOUS HISTORY Gonorrhea: No Genital Herpes: No Chlamydia: Yes Tuberculosis: No Syphilis: No Hepatitis: No HIV/AIDS Exposure: No Rash or Viral Illness: No HPV: No Infectious History Comments: chlamydia at age 14 PHYSICAL EXAM General: Normal HEENT: Deferred Neurologic: Deferred Thyroid: Deferred Heart: Normal Lungs: Normal Breast: Deferred Back: Deferred Abdomen: Normal Genitourinary Exam: Normal Extremities: Normal DTRs: Normal Pelvic Type: Adequate Vital Signs: Reviewed MEMBRANES Membranes: Ruptured Amniotic Fluid Color: Clear FETUS A EGA: 39.3 FHR Category: Category I Admit Comment: Term Srom with spontaneous labor. platelets 93, no signs preeclampsia. hx hemorrhage PLANS FOR LABOR AND DELIVERY Labor and Delivery: None Pain Management: Epidural Feeding Preference: Formula Benefit of Breast Feed Discussed: Yes Circumcision: N/A INFORMED CONSENT Signature: with User ID: [email or web address]
[2016-07-11] MEDS ORDERED: DIPH/PERTUSS(ACELL)/TETANUS VAC/PF 0.5 ML SYR (>=10YO) IM PRN (15:40)
[2016-07-11] MEDS ORDERED: MEASLES,MUMPS&RUBELLA VACC/PF 0.5 ML VIAL SUBCUT PRN (15:40)
[2016-07-11] MEDS ORDERED: OXYTOCIN/NORMAL SALINE 1,000 ML IV PRN (15:40)
[2016-07-11] MEDS ORDERED: ZOLPIDEM TARTRATE 5 MG TABLET PO PRN (15:40)
[2016-07-11] MEDS ORDERED: ACETAMINOPHEN WITH CODEINE #3 TABLET PO PRN (15:40)
[2016-07-11] MEDS ORDERED: BENZOCAINE/MENTHOL AEROSOL SPRAY 56 ML TOP PRN (15:40)
[2016-07-11] MEDS ORDERED: DIBUCAINE 1% OINTMENT 28 GM TP PRN (15:40)
[2016-07-11] MEDS: DOCUSATE SODIUM 100 MG CAPSULE PO SCH (18:16)
[2016-07-11] MEDS: FERROUS SULFATE 325 MG TABLET PO SCH (18:16)
[2016-07-11] MEDS: ACETAMINOPHEN WITH CODEINE #3 TABLET PO PRN (18:25)
--- NOTE | 2016-07-11 19:01 | L&D Flow Sheet ---
LD Flowsheet Datetime Report Generated by CPN: 07/11/2016 19:00 Datetime: 07/11/2016 15:17 NBP Sys/Lizeth/Mean (mmHg): 129 (QS system process) : 77 (QS system process) : 97 (QS system process) Pulse: 81 (QS system process) Datetime: 07/11/2016 15:02 NBP Sys/Lizeth/Mean (mmHg): 137 (QS system process) : 80 (QS system process) : 100 (QS system process) Pulse: 106 (QS system process) Datetime: 07/11/2016 14:44 NBP Sys/Lizeth/Mean (mmHg): 117 (QS system process) : 67 (QS system process) : 87 (QS system process) Pulse: 94 (QS system process) Datetime: 07/11/2016 14:30 Pain Pain Scale: 2 (Barb Rizo, RN) Pain Presence: Intermittent (Barb Rizo RN) Pain Type: Cramping (Barb Marlatt, RN) Pain Location: Abdomen (Barb Helmlatt, RN) Pain Goal: 1 (Barb Downeytt, RN) Datetime: 07/11/2016 14:14 NBP Sys/Lizeth/Mean (mmHg): 124 (QS system process) : 77 (QS system process) : 95 (QS system process) Pulse: 99 (QS system process) Datetime: 07/11/2016 14:00 Temperature (F): 98.2 (Christina Elizabeth, RN) Temperature (C): 36.8 (QS system process) Pain Pain Scale: 2 (Christina Elizabeth, RN) Pain Presence: Intermittent (Christina Elizabeth, RN) Pain Type: Cramping (Christina Elizabeth, RN) Pain Location: Abdomen (Christina Elizabeth, RN) Pain Goal: 1 (Christina Elizabeth, RN) Pain Relief Measures: Comfort Measures (Christina Elizabeth, RN) Datetime: 07/11/2016 13:45 Vital Signs Stage of : Recovery (Christina Elizabeth, RN) Pain Pain Scale: 3 (Christina Elizabeth, RN) Pain Presence: Intermittent (Christina Elizabeth, RN) Pain Type: Cramping (Christina Elizabeth, RN) Pain Location: Abdomen (Christina Elizabeth, RN) Pain Goal: 1 (Christina Elizabeth, RN) Pain Relief Measures: Pain Medication Given (Christina Elizabeth, RN) Datetime: 07/11/2016 13:44 NBP Sys/Lizeth/Mean (mmHg): 114 (QS system process) : 68 (QS system process) : 86 (QS system process) Pulse: 88 (QS system process) Datetime: 07/11/2016 13:30 Vital Signs Stage of : Recovery (Christina Elizabeth, RN) Pain Pain Scale: 3 (Christina Elizabeth, RN) Pain Presence: Intermittent (Christina Elizabeth, RN) Pain Type: Cramping (Christina Elizabeth, RN) Pain Location: Abdomen (Christina Elizabeth, RN) Pain Goal: 1 (Christina Elizabeth, RN) Pain Relief Measures: Pain Medication Given (Christina Elizabeth, RN) Datetime: 07/11/2016 13:25 NBP Sys/Lizeth/Mean (mmHg): 116 (QS system process) : 77 (QS system process) : 92 (QS system process) Pulse: 108 (QS system process) Datetime: 07/11/2016 13:16 Vital Signs Stage of : Recovery (Mena Kory, RN) Datetime: 07/11/2016 13:07 Vaginal Exam Dilatation (cm): 9.0 (Christina Elizabeth, RN) Effacement (%): 100 (Christina Elizabeth, RN) Station: 0 (Christina Elizabeth, RN) Exam by: HKeshav Elizabeth, RN (Christina Elizabeth, RN) Datetime: 07/11/2016 12:52 Medications Analgesics/Sedatives: Nubain (mg) @ 10; Phenergan (mg) @ 12.5 (Christina Elizabeth, RN) Datetime: 07/11/2016 12:44 Vaginal Exam Dilatation (cm): 6.0 (Christina Elizabeth, RN) Effacement (%): 80 (Christina Elizabeth, RN) Station: -1 (Christina Elizabeth, RN) Exam by: H. Elizabeth, RN (Christina Elizabeth, RN) Datetime: 07/11/2016 11:44 NBP Sys/Lizeth/Mean (mmHg): 131 (QS system process) : 75 (QS system process) : 96 (QS system process) Pulse: 100 (QS system process) Communication LaborFlag: OB Triage (QS system process) Datetime: 07/11/2016 11:30 Temperature (F): 98.4 (Christina Elizabeth, RN) Temperature (C): 36.9 (QS system process) Uterine Activity Monitor Mode: External (Christina Elizabeth, RN) Frequency (min): 5-7 (Christina Elizabeth, RN) Quality: Mild (Christina Elizabeth, RN) Duration (sec): 60-90 (Christina Elizabeth, RN) Resting Tone (Palpate): Relaxed (Christina Elizabeth, RN) Assessment A Monitor Mode: External US (Christina Elizabeth, RN) FHR Baseline Rate : 145 (Christina Elizabeth, RN) Variability: Moderate 6-25 bpm (Christina Elizabeth, RN) Accelerations: 15X15 (Christina Elizabeth, RN) Decelerations: None (Christina Elizabeth, RN) Communication LaborFlag: OB Triage (QS system process) Datetime: 07/11/2016 11:21 Patient Care IV/Blood Work: IV Started; IV Bolus Started (Meryl Urbina, RN) Datetime: 07/11/2016 11:00 Uterine Activity Monitor Mode: External (Christina Elizabeth, RN) Frequency (min): 2-4 (Christina Elizabeth, RN) Quality: Mild (Christina Elizabeth, RN) Duration (sec): 60-100 (Christina Elizabeth, RN) Resting Tone (Palpate): Relaxed (Christina Elizabeth, RN) Assessment A Monitor Mode: External US (Christina Elizabeth, RN) FHR Baseline Rate : 150 (Christina Elizabeth, RN) Variability: Moderate 6-25 bpm (Christina Elizabeth, RN) Accelerations: 15X15 (Christina Elizabeth, RN) Decelerations: Early (Christina Elizabeth, RN) Decelerations: None (Christina Elizabeth, RN) Datetime: 07/11/2016 10:45 Pain Pain Scale: 0 (Christina Elizabeth, RN) Pain Presence: None/Denies (Christina Elizabeth, RN) Pain Type: N/A (Christina Elizabeth, RN) Membrane Status: Ruptured (Christina Elizabeth, RN) Membranes Ruptured Date/Time: 07/11/2016 09:00 (Christina Elizabeth, RN) Membranes Rupture Method: Spontaneous (Christina Elizabeth, RN) Amniotic Fluid Color: Clear (Christina Elizabeth, RN) Amniotic Fluid Amount: Moderate (Christina Elizabeth, RN) Vaginal Bleeding: None (Christina Elizabeth, RN) Maternal Assessment Level of Consciousness: Fully Conscious (Christina Elizabeth, RN) DTR's/Clonus: DTRs 2+; No Clonus (Christina Elizabeth, RN) Headache: Denies (Christina Elizabeth, RN) Breath Sounds, Left: Clear and Equal (Christina Elizabeth, RN) Breath Sounds, Right: Clear and Equal (Christina Elizabeth, RN) Nausea/Vomiting: Denies (Christina Elizabeth, RN) RUQ Epigastric Pain: Denies (Christina Elizabeth, RN) Communication LaborFlag: OB Triage (QS system process) Datetime: 07/11/2016 10:44 NBP Sys/Lizeth/Mean (mmHg): 123 (QS system process) : 77 (QS system process) : 96 (QS system process) Pulse: 108 (QS system process) Communication LaborFlag: OB Triage (QS system process) Datetime: 07/11/2016 10:42 Vaginal Exam Dilatation (cm): 4.0 (Christina Johnson, RN) Effacement (%): 50 (Christina Johnson, RN) Station: -2 (Christina Elizabeth, RN) Exam by: Chen Johnson RN (Christina Johnson, RN)
[2016-07-11] MEDS: IBUPROFEN 800 MG TABLET PO SCH (21:08)
[2016-07-12] MEDS: ACETAMINOPHEN WITH CODEINE #3 TABLET PO PRN ×3 (03:46→18:58)
[2016-07-12] MEDS ORDERED: AMPICILLIN SOD/SULBACTAM 3 GM VIAL IV PRN ×2 (04:10→06:28)
[2016-07-12] MEDS: IBUPROFEN 800 MG TABLET PO SCH ×3 (05:11→21:05)
[2016-07-12] MEDS ORDERED: AMPICILLIN SODIUM/SULBACTAM NA 3 GM in NORMAL SALINE 100 ML IV SCH ×2 (06:00→12:00)
--- NOTE | 2016-07-12 06:01 | L&D Current Admission ---
Current Admit Datetime Report Generated by CPN: 07/12/2016 06:00 ADMISSION INFORMATION Current Admit Date/Time: 07/11/2016 10:50 (06/30/2016 17:28:Christina Johnson RN) Reason for Admission: Rupture of Membranes (06/30/2016 17:28:Christina Johnson RN) Chief Complaint: Suspected Rupture of Membranes (07/11/2016 10:45:Christina Johnson RN) Medications During : Vitamin (06/30/2016 17:28:Christina Johnson RN) EGA per Dates: 39.3 (06/30/2016 17:28:QS system process) Reason for Induction: Not Applicable (06/30/2016 17:28:Christina Johnson RN) Records Available: Yes (06/30/2016 17:28:Christina Johnson RN) General Admission Information: Reviewed; Updated (06/30/2016 17:28:Christina Johnson RN) General Admission Reviewed By: Nasim Urbina RN (06/30/2016 17:28:Christina Johnson RN) BELONGINGS/ADVANCED DIRECTIVES Valuables/Personal Effects: Purse/Wallet; Cell Phone (06/30/2016 17:28:Christina Johnson RN) Disposition of Belongings: Kept with Patient (06/30/2016 17:28:Christina Johnson RN) Advance Direct for Healthcare: No, and Wants No Information (06/30/2016 17:28:Christina Johnson RN) Durable Power of Regulatory Affairs Director: No (06/30/2016 17:28:Christina Johnson RN) Living Will: No (06/30/2016 17:28:Christina Johnson RN) Organ Donor: Yes (06/30/2016 17:28:Christina Johnson RN) Pt Rights Information Given: Yes (06/30/2016 17:28:Christina Jhonson RN) Pt Understands Pt Rights: Yes (06/30/2016 17:28:Christina Johnson RN) LEARNING ASSESSMENT Knowledge Level: Understands L_D Process; Understands Care Activities; Had Pre-Hospital Education; Understands Diagnosis (06/30/2016 17:28:Christina Johnson RN) Barriers to Learning: None (06/30/2016 17:28:Christina Johnson RN) Learning Readiness: Motivated (06/30/2016 17:28:Christina Johnson RN) Learns Best By: 1 to 1 Instruction; Demonstration (06/30/2016 17:28:Christina Johnson RN) Learning Needs: Labor and Delivery Process; Pain Management; Symptoms to Report; Treatment Plan; Medication; Diagnosis; Nutrition; Equipment; Infant Care; Community Resources (06/30/2016 17:28:Christina Johnson RN) DOMESTIC VIOLANCE SCREENING Dom Viol Threatened/Hurt: No (06/30/2016 17:28:Christina Johnson RN) Hx of Abuse/Neglect past 2yrs: No (06/30/2016 17:28:Christina Johnson RN) Feel Unsafe Going Home: No (06/30/2016 17:28:Christina Johnson RN) Addt'l Observ Indicating Abuse: No (06/30/2016 17:28:Christina Johnson RN) Reason Unable to Complete Screen: N/A, Screen Completed (06/30/2016 17:28:Christina Johnson RN) Considered Personal Harm/Suicide: No (06/30/2016 17:28:Christina Johnson RN) NUTRITIONAL/FUNCTIONAL SCREENING Problem with Appetite >5 Days: No (06/30/2016 17:28:Christina Johnson RN) Chew/Swallow Difficulties: No (06/30/2016 17:28:Christina Johnson RN) Inappropriate Wt Gain/Loss: No (06/30/2016 17:28:Christina Johnson RN) Presence Skin Breakdown/Ulcer: No (06/30/2016 17:28:Christina Johnson RN) Special Diet: No (06/30/2016 17:28:Christina Johnson RN) Pt Requests Catering Sales Manager Visit: No (06/30/2016 17:28:Christina Johnson RN) Hx of Any of the Following?: N/A (06/30/2016 17:28:Christina Johnson RN) New Diagnosis of: N/A (06/30/2016 17:28:Christina Johnson RN) Requires Assist w/Ambulation: No (06/30/2016 17:28:Christina Johnson RN) Uses Assist Device to Ambulate: No (06/30/2016 17:28:Christina Johnson RN) Pt Requires Help w/ADL's: No (06/30/2016 17:28:Christina Johnson RN)
--- NOTE | 2016-07-12 06:01 | L&D General Admission ---
General Admit Datetime Report Generated by CPN: 07/12/2016 06:00 INFORMATION Patient Age: 25 (05/30/2015 23:26:QS system process) EDC: 07/15/2016 00:00 (06/09/2016 17:03:Malinda Carlisle RN) : 6 (06/09/2016 17:03:Malinda Carlisle RN) Para: 4 (06/30/2016 20:04:Candelaria Alex RN) Term: 4 (06/09/2016 17:03:Malinda Carlisle RN) : 0 (06/09/2016 17:03:Malinda Carlisle RN) Spontaneous Abortions: 0 (06/09/2016 17:03:Malinda Carlisle RN) Induced Abortions: 0 (06/09/2016 17:03:Malinda Carlisle RN) Livin (06/09/2016 17:03:Malinda Carlisle RN) Cesareans: 0 (06/09/2016 17:03:Malinda Carlisle RN) VBACs: 0 (06/09/2016 17:03:Malinda Carlisle RN) Ectopic: 1 (06/09/2016 17:03:Malinda Carlisle RN) Multiple Births: 0 (06/09/2016 17:03:Malinda Carlisle RN) Baby, Number in Womb: 1 (06/30/2016 20:04:Candelaria Alex RN) CARE Primary Automatic Embroidery Machine T[facility] (06/09/2016 17:03:Malinda Carlisle RN) Adequate Care: Yes (06/09/2016 17:03:MATTHEW Angulo) Prepregnancy Weight (lb): 134 (06/09/2016 17:03:MATTHEW Angulo) Prepregnancy Weight (kg): 60.9 (06/09/2016 17:03:QS system process) Height (in): 61 (07/11/2016 15:22:QS system process) ALLERGIES Medication Allergy: No (06/09/2016 17:03:Malinda Carlisle RN) Medication Allergies: No Known Allergies (07/11/2016) (07/11/2016 11:02:QS system process) Latex Allergy: No Latex Allergies (06/09/2016 17:03:Malinda Carlisle RN) Food Allergies: None (06/09/2016 17:03:Meryl Urbina RN) Environmental Allergies: None (06/09/2016 17:03:Meryl Urbina RN) COMMUNICATION Primary Language: Portuguese (06/09/2016 17:03:Malinda Carlisle RN) Medical Tx Preferred Language: Portuguese (06/09/2016 17:03:Malinda Carlisle RN) Communication Barrier(s): None (06/09/2016 17:03:MATTHEW Angulo) DEMOGRAPHICS Address: [address] [place] [id number] (11/25/2015 21:42:QS system process) Zipcode: [address] (11/25/2015 21:42:QS system process) Home (09/04/2015 15:53:QS system process) Work (02/03/2016 10:19:QS system process) N: [phone] (05/30/2015 23:26:QS system process) Next of Kin Name: JC SHELTON (07/11/2016 10:21:QS system process) Next of Kin (07/11/2016 10:21:QS system process) Next of Kin Relationship: OR (07/11/2016 10:21:QS system process) Date of : 1990 (05/30/2015 23:26:QS system process) Marital Status: (05/30/2015 23:26:QS system process) Sex: Female (05/30/2015 23:26:QS system process) Occupation: Other (06/09/2016 17:03:MATTHEW Angulo) 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 [id number] (06/09/2016 17:03:Mena Johnson RN) Marijuana: No (06/09/2016 17:03:Mena Johnson RN) Cocaine: No (06/09/2016 17:03:Mena Johnson RN) Other Illicit Drugs: No (06/09/2016 17:03:Mena Johnson RN) VACCINE HISTORY Influenza Vaccine: No (06/09/2016 17:03:Mena Johnson RN) Pneumococcal Vaccine: No (06/09/2016 17:03:Mena Johnson RN) Tetanus Vaccine: Yes (06/09/2016 17:03:Mena Johnson RN) Tdap Vaccine: Yes (06/09/2016 17:03:Mena Johnson RN) Hepatitis B Vaccine: Uncertain (06/09/2016 17:03:Mena Johnson RN) Log Buyer: [facility] (06/09/2016 17:03:Mena Johnson RN) Feeding Preference: Formula (06/09/2016 17:03:Mena Johnson RN) Benefit of Breast Feed Discussed: Yes (06/09/2016 17:03:Mena Johnson RN) Circumcision: N/A (06/09/2016 17:03:Mena Johnson RN) Classes Attended: No (06/09/2016 17:03:Mena Johnson RN) Tubal Ligation: No (06/09/2016 17:03:Mena Johnson RN) Tubal Authorization Signed: N/A (06/09/2016 17:03:Mena Johnson RN) Consent: N/A (06/09/2016 17:03:Mena Johnson RN) Consent Signed: N/A (06/09/2016 17:03:Mena Johnson RN) Pain Management Plans: Epidural (06/09/2016 17:03:Mena Johnson RN) Plans for Labor and Delivery: None (06/09/2016 17:03:Mena Johnson RN) Support Person: Stephen Cuadra (06/09/2016 17:03:Mena Johnson RN) Support Person Relationship: Significant Other (06/09/2016 17:03:Mena Johnson RN) Cultural/Spritual Practice: No (06/09/2016 17:03:Mena Johnson RN) Spir/Cult Dietary Needs: No (06/09/2016 17:03:Mena Johnson RN) LIVING SITUATION/DISCHARGE PLAN Living Arrangements: House (06/09/2016 17:03:Mena Johnson RN) Adequate Access to:: Electric; Heat; Refrigeration; Plumbing/Running water; Phone; Transportation (06/09/2016 17:03:Mena Johnson RN) WIC Program: Yes (06/09/2016 17:03:Mena Johnson RN) Discharge Android Platform Developer Person: RUEL (06/09/2016 17:03:Mena Johnson RN) Person to Help after Discharge: RUEL (06/09/2016 17:03:Mena Johnson RN) Currently Using Commun Resources: No (06/09/2016 17:03:Mena Johnson RN) Outside Agency/Internal Consultant: No (06/09/2016 17:03:Mena Johnson RN) Car Seat for Discharge: Yes (06/09/2016 17:03:Mena Johnson RN) Adoption Requested: No (06/09/2016 17:03:Mena Johnson RN) Pt Contact w/infant Post : N/A (06/09/2016 17:03:Mena Johnson RN) LABS Blood Type: A Positive (06/09/2016 17:03:Mena Johnson RN) Hemoglobin: 10.8 L (07/11/2016 10:59:QS system process) Hematocrit: 33.4 L (07/11/2016 10:59:QS system process) MCV: 79 L (07/11/2016 10:59:QS system process) Group Beta Strep: negative (06/09/2016 17:03:Serina Mcdaniel RN) Gonorrhea: Negative (06/09/2016 17:03:Mena Johnson RN) Chlamydia: Negative (06/09/2016 17:03:Mena Johnson RN) RPR/VDRL: Nonreactive (06/09/2016 17:03:Mena Johnson RN) Hepatitis B: Negative (06/09/2016 17:03:Mena Johnson RN) Rubella: Immune (06/09/2016 17:03:Mena Johnson RN) OB/PREVIOUS HISTORY Previous Procedures: Ultrasound; NST (06/09/2016 17:03:Mena Johnson RN) Current Procedures: Ultrasound; NST (06/09/2016 17:03:Mena Johnson RN) History of Previous : No (06/09/2016 17:03:Mena Johnson RN) History of Gestational Diabetes: No (06/09/2016 17:03:Mena Johnson RN) History of PIH: No (06/09/2016 17:03:Mena Johnson RN) History of Incompetent Cervix: No (06/09/2016 17:03:Mena Johnson RN) History of Placenta Previa/Abrup: Yes (06/09/2016 17:03:Mena Johnson RN) History of Macrosomia: No (06/09/2016 17:03:Mena Johnson RN) History of IUGR: No (06/09/2016 17:03:Mena Johnson RN) History of Hemorrhage: Yes (06/09/2016 17:03:Mena Johnson RN) History of Loss/Stillborn: No (06/09/2016 17:03:Mena Johnson RN) History of : No (06/09/2016 17:03:Mena Johnson RN) History of D (Rh) Sensitization: No (06/09/2016 17:03:Mena Johnson RN) History Recurrent Loss/Stillborn: No (06/09/2016 17:03:Mena Johnson RN) History Depression/PP Depression: No (06/09/2016 17:03:Mena Johnson RN) History of Uterine Anomaly/ROSA: No (06/09/2016 17:03:Mena Johnson RN) History of Infertility: No (06/09/2016 17:03:Mena Johnson RN) History of ART Treatment: No (06/09/2016 17:03:Mena Johnson RN) History of ROSA: No (06/09/2016 17:03:Mena Johnson RN) Comments Obstetrical History: G1: 2005 , no complications G2: 2006 ectopic G3: 2007 , no complications G4: 2010 , PP hemorrhage G5: 2012 , PP hemorrhage G6: current , Partial abruption at beginning of current (06/09/2016 17:03:Mena Johnson RN) MEDICAL HISTORY Med Hx Diabetes: No (06/09/2016 17:03:Mena Johnson RN) Med Hx Hypertension: No (06/09/2016 17:03:Mena Johnson RN) Med Hx Heart Disease: No (06/09/2016 17:03:Mena Johnson RN) Med Hx Autoimmune Disorder: No (06/09/2016 17:03:Mena Johnson RN) Med Hx Kidney Disease/UTI: No (06/09/2016 17:03:Mena Johnson RN) Med Hx Neurologic/Epilepsy: No (06/09/2016 17:03:Mena Johnson RN) Med Hx Psychiatric Disorders: No (06/09/2016 17:03:Mena Johnson RN) Med Hx Hepatitis/Liver Disease: No (06/09/2016 17:03:Mena Johnson RN) Med Hx Varicosities/Phlebitis: No (06/09/2016 17:03:Mena Johnson RN) Med Hx Thyroid Dysfunction: No (06/09/2016 17:03:Mena Johnson RN) Med Hx Trauma/Violence: No (06/09/2016 17:03:Mena Johnson RN) Med Hx Blood Transfusion: Yes (06/09/2016 17:03:Mena Johnson RN) Med Hx Pulmonary (Asthma,TB): No (06/09/2016 17:03:Mena Johnson RN) Med Hx Breast: No (06/09/2016 17:03:Mena Johnson RN) Med Hx GARAGE HELPER Surgery: No (06/09/2016 17:03:Mena Johnson RN) Med Hx Hospitalization/Surgery: Yes (06/09/2016 17:03:Mena Johnson RN) Med Hx Anesthetic Complications: No (06/09/2016 17:03:Mena Johnson RN) Med Hx Abnormal Pap Smear: No (06/09/2016 17:03:Mena Johnson RN) Other Medical Diseases: No (06/09/2016 17:03:Mena Johnson RN) Med Hx Significant Family Hx: No (06/09/2016 17:03:Mena Johnson RN) Details of Med/Surg Hx: Blood transfusion after ectopic , childbirth (06/09/2016 17:03:Mena Johnson RN) INFECTIOUS HISTORY Inf Hx Gonorrhea: No (06/09/2016 17:03:Mena Johnson RN) Inf Hx Chlamydia: Yes (06/09/2016 17:03:Serina Mcdaniel RN) Inf Hx Syphilis: No (06/09/2016 17:03:Mena Johnson RN) Inf Hx HIV/AIDS: No (06/09/2016 17:03:Mena Johnson RN) Inf Hx Human Papilloma Virus: No (06/09/2016 17:03:Mena Johnson RN) Inf Hx Pt/Partner Genital Herpes: No (06/09/2016 17:03:Mena Johnson RN) Inf Hx Tuberculosis/Exposure: No (06/09/2016 17:03:Mena Johnson RN) Inf Hx Hepatitis B,C: No (06/09/2016 17:03:Mena Johnson RN) Inf Hx Rash or Viral Illness: No (06/09/2016 17:03:Mena Johnson RN) Details of Infectious Hx: chlamydia at age 14 (06/09/2016 17:03:Serina Mcdaniel RN) GENETIC HISTORY Gen Hx Age >=35 at ALEX: No (06/09/2016 17:03:Mena Johnson RN) Gen Hx Thalassemia: No (06/09/2016 17:03:Mena Johnson RN) Gen Hx Congenital Heart Defect: No (06/09/2016 17:03:Mena Johnson RN) Gen Hx Neural Tube Defect: No (06/09/2016 17:03:Mena Johnson RN) Gen Hx Down's Syndrome: No (06/09/2016 17:03:Mena Johnson RN) Gen Hx Dane-Sachs: No (06/09/2016 17:03:Mena Johnson RN) Gen Hx Merlyn: No (06/09/2016 17:03:Mena Johnson RN) Gen Hx Familial Dysautonomia: No (06/09/2016 17:03:Mena Johnson RN) Gen Hx Sickle Cell Disease/Trait: No (06/09/2016 17:03:Mena Johnson RN) Gen Hx Hemophilia/Blood Disorder: No (06/09/2016 17:03:Mena Johnson RN) Gen Hx Muscular Dystrophy: No (06/09/2016 17:03:Mena Johnson RN) Gen Hx Cystic Fibrosis: No (06/09/2016 17:03:Mena Johnson RN) Gen Hx Huntingtons Chorea: No (06/09/2016 17:03:Mena Johnson RN) Gen Hx Mental Retardation/Autism: No (06/09/2016 17:03:Mena Johnson RN) Gen Hx Tested for Fragile X: No (06/09/2016 17:03:Mena Johnson RN) Gen Hx Other Inher/Chromosomal: No (06/09/2016 17:03:Mena Johnson RN) Gen Hx Maternal Metabolic DO: No (06/09/2016 17:03:Mena Johnson RN) Gen Hx Pt Father or FOB Defect: No (06/09/2016 17:03:Mena Johnson RN) Gen Hx Other Genetic History: No (06/09/2016 17:03:Mena Johnson RN) Gen Hx Drugs/Meds since LMP: Yes (06/09/2016 17:03:Mena Johnson RN) Gen Hx Medications: PNV, Tylenol (06/09/2016 17:03:Mena Johnson RN)
--- NOTE | 2016-07-12 06:16 | L&D Care Plan ---
LD CARE PLANS Datetime Report Generated by CPN: 07/12/2016 06:15 Datetime: 07/11/2016 10:53 Pain State: Actual (Mena Horn RN) Related To: Labor and Delivery Process; Treatment and Procedures (Mena Horn RN) Goal(s): Patients Pain will be Assessed and Managed; Patient will Verbalize Adequate Relief of Pain or the Ability to [place] with Current Pain (Mena Horn RN) Interventions: Assess Pain Severity on Scale of 0 (None) to 5 (Severe); Assess Type, Location and Intensity of Pain Each Time Client Reports Discomfort and Notify Provider if Unusal Pain Develops; Encourage Proper Breathing and Relaxation Techniques; Offer Alternatives Such as Repositioning, Calm Environment, Massages, Diversional Activities, Ice Pack, Splinting, and Ambulation; Administer Analgesics as Ordered; Assist with Epidural Placement as Appropriate; Evaluate Therapeutic Effectiveness of Medication and Treatments (Mena Horn RN) Outcome: Patient will Report Absence or Relief of Pain Consistent with Established Pain Goal (Mena Horn RN) Status: Ongoing (Mena Horn RN) Outcome: Patient will have a Decrease in Signs and Symptoms of Discomfort (Mena Horn RN) Status: Ongoing (Mena Horn RN) Outcome: Pain will be Controlled During Procedures (Mena Horn RN) Status: Ongoing (Mena Horn RN) Anxiety State: Risk For (Mena Horn RN) Related To: Labor and Delivery Process; Medical Interventions (Mena Horn, MAXIMINO) Goal(s): Patient will have Decreased Anxiety and be able to Function at Acceptable Levels (Mena Horn, MAXIMINO) Interventions: Assess Verbal and Nonverbal Behavioral Indicators of Anxiety; Assist Patient to Identify and Verbalize Symptoms of Anxiety; Identify and Demonstrate Techniques to Control Anxiety; Assist Patient with Coping Mechanisms to Manage Anxiety; Provide Theraputic Touch for the Patient; Explain to Patient, Using a Calm Reassuring Approach and Nonmedical Terms, All Activities, Procedures, and Concerns; Instruct Patient and Family about Post Discharge Care, Limitations, Symptoms to Report and Resources Available (Mena Horn, MAXIMINO) Outcome: Patient will Identify, Verbalize and Demonstrate Techniques to Control Anxiety (Mena Horn RN) Status: Ongoing (Mena Horn RN) Outcome: Patient's Posture, Facial Expressions, Gestures and Activity Level will Reflect Decreased Anxiety (Mena Horn RN) Status: Ongoing (Mena Horn RN) Outcome: Patient will Verbalize a Sense of Control and/or Acceptance of the Situation (Mena Horn RN) Status: Ongoing (Mena Horn RN) Outcome: Patient will Identify and Utilize Support Person (Mena Horn RN) Status: Ongoing (Mena Horn RN) Knowledge Deficit State: Risk For (Mena Horn RN) Related To: Labor and Delivery Process; Treatment and Procedures (Mena Horn RN) Goal(s): Patient will Accurately Verbalize Understanding of Plan of Care and Treatment; Patient and Family will Accurately Verbalize Understanding of the Disease Process (Mena Horn RN) Interventions: Assess Motivation and Willingness of Patient/Family to Learn; Assess Preferred Learning Mode: One to One Instruction, Reading, Videos, Group Discussion or Demonstration; Assess Barriers to Learning: Pain, Emotional State, Language Barrier, Cognitive Impairment, Visual or Hearing Deficits; Assess Patient and Family Knowledge of Disease Process, Medications and Treatment; Discuss Therapy and/or Treatment Options, Describe Rationale Behind Management, Therapy and Treatment Recommendations; Instruct Patient and Family on Signs and Symptoms to Report; Instruct Patient and Family on Medication Effects and Side Effects; Provide Appropriate and Timely Education Using Multiple Techniques; Provide Patient and Family with Support Group Information and Resources; Give Clear and Thorough Explanations and Demonstrations (Mena Horn RN) Outcome: Patient and Family will Verbalize Understanding of Condition, Treatment and Signs and Symptoms to Report (Mena Horn RN) Status: Ongoing (Mena Horn RN) Outcome: Patient will Identify Perceived Learning Needs and Express Motivation to Learn (Mena Horn RN) Status: Ongoing (Mena Horn RN) Outcome: Patient will Verbalize Understanding of Desired Content, and/or Performs Desired Skill Prior to Discharge (Mena Horn RN) Status: Ongoing (Mena Horn RN) Infection State: Risk For (Mena Horn RN) Related To: Premature/Prolonged Rupture of Membranes (Mena Horn RN) Goal(s): The Patient will be Free of Infection, Vital Signs Stable and Lab Work within Normal Parameters (Mena Horn RN) Interventions: Instruct and Reinforce Proper Handwashing, Hygiene, and Care Techniques to Patient and Family; Monitor Vital Signs; Monitor Patient for the Following Signs of Infection: Fever, Abdominal Tenderness, Unusual Discharge; Monitor Aminiotic Fluid, Urine and Lochia for Color and Odor; Observe Wounds, Incisions and Invasive Line Sites for Redness, Drainage and Edema; Assess IV Sites per Hospital Policy; Monitor Lab and Test Results and Notify Provider of Abnormal Findings; Assess Nutritional Status and Promote Good Nutrition (Mena Horn RN) Outcome: Patient will Remain Free of Infection (Mena Horn RN) Status: Ongoing (Mena Horn RN) Outcome: Infection will be Recognized Early to Allow for Prompt Treatment (Mena Horn RN) Status: Ongoing (Mena Horn RN) Outcome: Patient will have Vital Signs Within Expected Range (Mena Horn RN) Status: Ongoing (Mena Horn RN) Fluid Volume State: Risk For (Mena Horn RN) Related To: Prolonged Labor or Induction (Mena Horn RN) Goal(s): Patient will Achieve and Maintain a Balanced Fluid Volume Status; Hemodynamically Stable (Mena Horn RN) Interventions: Monitor Vital Signs; Auscultate Breath Sounds; Monitor Patient for Skin Turgor, Mucous Membranes, Dry Skin, Weakness, Headaches and Confusion; Provide Oral Fluids as Ordered; Initiate and Maintain Intravenous Fluids as Ordered; Monitor Intake and Output as Indicated Per Patient Status; Accurately Measure Blood Loss; Monitor Lab and Test Results as Obtained and Notify Provider of Abnormal Findings; Monitor Patient's Weight (Mena Horn RN) Outcome: Patient will have Clear Lung Sounds (Mena Horn RN) Status: Ongoing (Mena Horn RN) Outcome: Patient will have Vital Signs within Expected Range (Mena Horn RN) Status: Ongoing (Mena Horn RN) Outcome: Urine Output will be within Expected Range (Mena Horn RN) Status: Ongoing (Mena Horn RN) Outcome: Patient will have Minimal Generalized or Upper Extremity Edema (Mena Horn RN) Status: Ongoing (Mena Horn RN) Injury State: Risk For (Mena Horn RN) Related To: Labor and Delivery Process (Mena Horn RN) Goal(s): Patient will Remain Free from Injury (Mena Horn RN) Interventions: Monitoring as per Hospital Protocol; Assess Neurological Status; Perform Risk Assessment of Patients with Induction and ; Perform Fall Risk Assessment and Prevention per Hospital Protocol; Perform DVT Risk Assessment and Prophylaxis per Hospital Protocol; Ensure that Oxygen, Suction, and Resuscitation Medications and Equipment are Readily Available; Confirm Patient ID Prior to Procedure(s) and Medication Administration per Hospital Policy (Mena Horn RN) Outcome: Successful Fall Risk Prevention (Mena Horn RN) Status: Ongoing (Mena Horn RN) Outcome: Patient will Deliver without Adverse Sequela (Mena Horn RN) Status: Ongoing (Mena Horn RN) Outcome: Patient's Neurological Status will Remain Stable (Mean Horn RN) Status: Ongoing (Mena Horn RN) Impaired Skin Integrity State: Risk For (Mena Horn RN) Related To: Vaginal Delivery (Mena Horn RN) Goal(s): Patient will Maintain Optimal Skin Integrity, Free of Breakdown, Injury or Infection (Mena Horn RN) Interventions: Complete Screening for Pressure Ulcer Risk and Initiate Protocol per Hospital Policy; Monitor Site of Skin Impairment for Color Changes, Redness, Swelling, Warmth, Pain or Other Signs of Infection; Encourage and Assist with Position Changes; Monitor Patient's Mobility Status; Provide Adequate Nutrition and Fluids; Teach Patient Appropriate Hygienic Care; Teach Patient/Family Skin Care Management (Mena Horn RN) Outcome: Patient will not have Evidence of Injury Such as Skin Breakdown, Scrapes, Cuts, or Bruising (Mena Horn RN) Status: Ongoing (Mena Horn RN) Outcome: Patient will Report Any Altered Sensation or Pain at Site of Skin Impairment (Mena Horn RN) Status: Ongoing (Mena Horn RN) Outcome: Patients Incisions and Wounds will be without Signs or Symptoms of Infection (Mena Honr RN) Status: Ongoing (Mena Horn RN) Outcome: Patient will Demonstrate Understanding of Plan to Heal Skin and Prevent Reinjury and Verbalize Risk Factors (Mena Horn RN) Status: Ongoing (Mena Kory RN) Parenting Impaired State: Not Applicable (Mena Kory RN) Nutrition State: Not Applicable (Mena Horn, RN) Grieving State: Not Applicable (Mena Kory, RN) Additional Care Plan State: Not Applicable (Mena Horn, MAXIMINO)
[2016-07-12 06:56] LABS: ABSOLUTE BASOPHILS # (AUTO) 0.1 10^3/uL (0.0-0.2); ABSOLUTE LYMPHOCYTES (AUTO) 1.1 10^3/uL (0.5-4.7); ABSOLUTE MONOCYTES (AUTO) 1.5 10^3/uL (0.1-1.4); ABSOLUTE NEUT (AUTO) 10.2 10^3/uL (1.7-8.2); BASOPHILS % (AUTO) 0.6 % (0-2); EOSINOPHILS % (AUTO) 0.1 % (0-6); HEMATOCRIT 30.4 % (36.0-47.0); HGB HCT DIFFERENCE -0.4; LYMPHOCYTES % (AUTO) 8.4 % (13-45); MEAN CORPUSCULAR HEMOGLOBIN 26.3 pg (27.0-33.4); MEAN CORPUSCULAR HGB CONC 33.1 g/dL (32.0-36.0); MEAN CORPUSCULAR VOLUME 80 fl (80-97); MONOCYTES % (AUTO) 11.5 % (3-13); RED BLOOD COUNT 3.82 10^6/uL (3.72-5.28); RED CELL DISTRIBUTION WIDTH 15.5 % (11.5-14.0); SEGMENTED NEUTROPHILS % (AUTO) 79.4 % (42-78); WHITE BLOOD COUNT 12.9 10^3/uL (4.0-10.5)
[2016-07-12 07:59] LABS: ANISOCYTOSIS 1+; HYPOCHROMASIA 1+; POLYCHROMASIA 1+
[2016-07-12] MEDS: FERROUS SULFATE 325 MG TABLET PO SCH ×2 (09:26→17:04)
[2016-07-12] MEDS: SENNOSIDES/DOCUSATE 8.6-50 MG 1 EACH TABLET PO SCH (09:26)
[2016-07-12] MEDS: PRENATAL VITAMIN W-O CA NO5/FE FUMARATE/FA CAPSULE PO SCH (09:26)
[2016-07-12] MEDS: DOCUSATE SODIUM 100 MG CAPSULE PO SCH ×2 (09:26→17:04)
[2016-07-12] MEDS: AMPICILLIN SODIUM/SULBACTAM NA 3 GM in NORMAL SALINE 100 ML IV SCH ×3 (11:10→23:46)
--- NOTE | 2016-07-12 17:47 | PDOC PROGRESS REPORT ---
Subjective-OB Subjective: Post Delivery Day: 26 year old. Denies any needs at this time pt shivering in bed vital signs wnl except for heart rate- pt tachycardic blood cultures x 2 and urine culture obtained 07/11/16 pt reports left flank pain +cvat pt currently on abx- Unasyn 3 gm since 0650 this morning 07/12/16 no abdominal tenderness ff@u-2 mild lochia no clots lungs ctab will review with Dr. britt for any additional interventions Physical Exam (OB) Vital Signs: Temp Pulse Resp BP Pulse Ox 97.7 F 67 18 92/56 L 98 07/12/16 16:00 07/12/16 08:04 07/12/16 08:04 07/12/16 08:04 07/12/16 08:04 Intake & Output 07/11/16 07/12/16 07/13/16 06:59 06:59 06:59 Weight 74 kg - PIH/Pre-Eclampsia Clonus: Negative - Lochia Lochia Amount: Scant < 10 ml Lochia Color: Rubra/Red - Abdomen Description: Tender Hernia Present: No Fundal Description: Firm, Midline Fundal Height: u/u - u/2 Objective-Diagnostic Laboratory: 07/12/16 06:33 07/12/16 06:33 WBC 12.9 H RBC 3.82 Hgb 10.0 L Hct 30.4 L MCV 80 MCH 26.3 L MCHC 33.1 RDW 15.5 H Plt Count 94 L Seg Neutrophils % 79.4 H Lymphocytes % 8.4 L Monocytes % 11.5 Eosinophils % 0.1 Basophils % 0.6 Absolute Neutrophils 10.2 H Absolute Lymphocytes 1.1 Absolute Monocytes 1.5 H Absolute Eosinophils 0.0 Absolute Basophils 0.1
[2016-07-13] MEDS ORDERED: GENTAMICIN SULFATE INJ 80 MG/2 ML VIAL ONE (00:27)
[2016-07-13] MEDS: AMPICILLIN SODIUM/SULBACTAM NA 3 GM in NORMAL SALINE 100 ML IV SCH ×4 (05:38→23:00)
[2016-07-13] MEDS ORDERED: GENTAMICIN SULFATE INJ 80 MG/2 ML VIAL IV SCH ×2 (06:00→10:00)
[2016-07-13] MEDS: IBUPROFEN 800 MG TABLET PO SCH ×3 (06:40→21:22)
[2016-07-13 08:17] LABS: ANION GAP 5 (5-19); BLOOD UREA NITROGEN 6 mg/dL (7-20); CALCIUM 8.6 mg/dL (8.4-10.2); CARBON DIOXIDE 27 mmol/L (22-30); CHLORIDE 105 mmol/L (98-107); CREATININE RESULT 0.55 mg/dL (0.52-1.25); GLUCOSE 78 mg/dL (75-110); POTASSIUM 3.7 mmol/L (3.6-5.0); SODIUM 136.5 mmol/L (137-145)
[2016-07-13] MEDS: FERROUS SULFATE 325 MG TABLET PO SCH ×2 (09:22→17:11)
[2016-07-13] MEDS: DOCUSATE SODIUM 100 MG CAPSULE PO SCH ×2 (09:22→17:10)
[2016-07-13] MEDS: PRENATAL VITAMIN W-O CA NO5/FE FUMARATE/FA CAPSULE PO SCH (09:23)
[2016-07-13] MEDS: SENNOSIDES/DOCUSATE 8.6-50 MG 1 EACH TABLET PO SCH (09:23)
--- NOTE | 2016-07-13 10:08 | PDOC PROGRESS REPORT ---
Subjective-OB Subjective: Post Delivery Day: 2 26 year old. Denies any needs at this time, states lochia is stable, pain is well controlled, voiding without difficulty. Feeling better denies current flank pain. Physical Exam (OB) Vital Signs: Temp Pulse Resp BP Pulse Ox 97.9 F 72 16 108/69 100 07/13/16 04:30 07/13/16 07:46 07/13/16 07:46 07/13/16 07:46 07/13/16 07:46 Intake & Output 07/12/16 07/13/16 07/14/16 06:59 06:59 06:59 Output Total 1450 Balance -1450 Weight 74 kg - Lochia Lochia Amount: Small 10-25 ml Lochia Color: Serosa/Brown - Abdomen Description: Soft, Round Hernia Present: No Fundal Description: Firm, Midline Fundal Height: u/u - u/2 Objective-Diagnostic Laboratory: 07/12/16 06:33 07/13/16 07:00 07/13/16 07:00 Sodium 136.5 L Potassium 3.7 Chloride 105 Carbon Dioxide 27 Anion Gap 5 BUN 6 L Creatinine 0.55 Est GFR ( Amer) > 60 Est GFR (Non-Af Amer) > 60 Glucose 78 Calcium 8.6 Assessment and Plan(PN) - Assessment and Plan (1) Vaginal delivery Is this a current diagnosis for this admission?: YesPlan: routine pp care discharge home once afebrile for 24 hours (2) Acute blood loss anemia Is this a current diagnosis for this admission?: YesPlan: ferrous sulfate increase dietary iron (3) Fever Qualifiers: Fever type: fever of unknown origin following delivery Qualified Code(s): O86.4 - Pyrexia of unknown origin following delivery Is this a current diagnosis for this admission?: YesPlan: continue to monitor continue abx - Time Spent with Patient Time with patient: Less than 15 minutes Critical Time spent with patient: Less than 15 minutes Smoking Education Provided: Over 3 minutes Medications reviewed and adjusted accordingly: No - Disposition Anticipated Discharge: Home Within: within 24 hours
[2016-07-13] MEDS ORDERED: GENTAMICIN SULFATE 110 MG in DEXTROSE 5%-WATER 100 ML IV ONE (11:00)
[2016-07-13] MEDS: GENTAMICIN SULFATE 110 MG in DEXTROSE 5%-WATER 100 ML IV SCH (18:00)
[2016-07-13] MEDS ORDERED: GENTAMICIN SULFATE INJ 80 MG/2 ML VIAL IV ONE (22:37)
[2016-07-14] MEDS: GENTAMICIN SULFATE 110 MG in DEXTROSE 5%-WATER 100 ML IV SCH ×2 (01:57→10:30)
[2016-07-14 02:26] LABS: CREATININE RESULT 0.57 mg/dL (0.52-1.25)
[2016-07-14] MEDS: AMPICILLIN SODIUM/SULBACTAM NA 3 GM in NORMAL SALINE 100 ML IV SCH ×2 (06:19→14:28)
[2016-07-14] MEDS: IBUPROFEN 800 MG TABLET PO SCH ×2 (06:19→13:46)
[2016-07-14] MEDS: FERROUS SULFATE 325 MG TABLET PO SCH (10:31)
[2016-07-14] MEDS: SENNOSIDES/DOCUSATE 8.6-50 MG 1 EACH TABLET PO SCH (10:31)
[2016-07-14] MEDS: PRENATAL VITAMIN W-O CA NO5/FE FUMARATE/FA CAPSULE PO SCH (10:31)
[2016-07-14] MEDS: DOCUSATE SODIUM 100 MG CAPSULE PO SCH (10:31)
[2016-07-14 11:57] VITALS: BP 118/64
[2016-07-14] MEDS ORDERED: MEDROXYPROGESTERONE ACET INJ 150 MG/1 ML VIAL IM ONE (15:00)
--- NOTE | 2016-07-14 15:34 | PDOC DISCHARGE SUMMARY ---
Final Diagnosis Discharge Date: 07/14/16 - Final Diagnosis (1) Urinary tract bacterial infections Is this a current diagnosis for this admission?: Yes (2) Vaginal delivery Is this a current diagnosis for this admission?: Yes Discharge Data - Discharge Medication Home Medications: Pnv #116/Iron Fumarate/FA/Dha [Expecta Combo Pack] 1 tab PO DAILY 06/09 Docusate Sodium [Colace 100 mg Capsule] 100 mg PO BID #60 capsule 07/14/16 Ferrous Sulfate [Feosol 325 mg Tablet] 325 mg PO BID #60 tablet 07/14/16 Ibuprofen [Motrin 800 mg Tablet] 800 mg PO Q8HP PRN #90 tablet 07/14/16 Reason(s) for Admission: Onset of Labor Procedures: Ultrasound Intrapartum Procedure(s): Spontaneous Vaginal Delivery - Data Baby 1 Female at 1 minute: 8 at 5 minutes: 9 Weight: 3795 kg Home with Mother: Yes Complications: No - Diagnosis Test Laboratory: Temp Pulse Resp BP Pulse Ox 97.6 F 84 18 118/64 100 07/14/16 11:38 07/14/16 11:38 07/14/16 11:38 07/14/16 11:38 07/14/16 11:38 07/11/16 07/11/16 07/12/16 10:35 10:59 06:33 RBC 4.24 3.82 Hgb 10.8 L 10.0 L Hct 33.4 L 30.4 L Urine Opiates Screen NEGATIVE - Discharge information/Instructions Discharge Activity: Activity As Tolerated, Balance Activity w/Rest, No Lifting Over 10 Pounds, No Lifting/Push/Pulling, Pelvic Rest, Slowly Increase Activity, No tub bath Discharge Diet: Regular Disposition: HOME, SELF-CARE Follow up with: [facility] in: 10, Days - urine culture (test of cure for UTi) or earlier with s/s of UTI
--- NOTE | 2016-07-15 13:06 | Delivery Summary ---
Del Sum A-C Datetime Report Generated by CPN: 07/15/2016 13:05 ADMISSION DATA Chief Complaint: Suspected Ruptured Membranes Indication for Induction: Not Applicable Admission Impression: Term, Intrauterine ; Active Labor; Ruptured Membranes Admit Provider Comments: Term Srom with spontaneous labor. platelets 93, no signs preeclampsia. hx hemorrhage DELIVERY PERSONNEL Delivery Doctor:: Arline Mercado MD Labor and Delivery Nurse:: Christina Johnson RN Nursery Nurse:: Mena Horn RN Tractor Drill Operator/RETAIL MARKETING EXECUTIVE: Kelly Bui, DIESEL TECHNICIAN MATERNAL INFORMATION Delivery Anesthesia: None Medications After Delivery: Pitocin Bolus-Please Comment Meds After Delivery Comment: Pitocin 20 units in 1000mL NSS Estimated Blood Loss (ml): 400 Maternal Complications: None Provider Comments: over intact perineum, no lacs. livve female infant ap 8/9. spontaneous intact placenta 3vc. no complications LABOR SUMMARY EDC: 07/15/2016 00:00 No. Babies in Womb: 1 Labor Anesthesia: IV Sedation LABOR INFORMATION Onset of Labor: 07/11/2016 12:44 Complete Dilatation: 07/11/2016 13:10 Oxytocin: N/A Group B Beta Strep: negative Steroids Given: None Reason Steroids Not Administered: Not Applicable MEMBRANES Membranes Rupture Method: Spontaneous Rupture of Membranes: 07/11/2016 09:00 Length of Rupture (hr): 4.25 Amniotic Fluid Color: Clear Amniotic Fluid Amount: Moderate STAGES OF LABOR Stage 1 hr: 0 Stage 1 min: 26 Stage 2 hr: 0 Stage 2 min: 5 Stage 3 hr: 0 Stage 3 min: 3 Total Time in Labor hr: 0 Total Time in Labor min: 34 VAGINAL DELIVERY Episiotomy: None Laceration Extension: N/A Laceration Type: None Laceration Repair: Not Applicable BABY A INFORMATION Infant Delivery Date/Time: 07/11/2016 13:15 Method of Delivery: Vaginal Born in Route : No : N/A Forceps: N/A Vacuum Extraction: N/A Shoulder Dystocia : No PRESENTATION/POSITION BABY A Presentation: Cephalic Cephalic Presentation: Vertex PLACENTA INFORMATION BABY A Placenta Delivery Time : 07/11/2016 13:18 Placenta Method of Delivery: Spontaneous Placenta Status: Delivered SCORES BABY A Heart Rate 1 min: >100 bpm Resp Effort 1 min: Good Cry Reflex Irritability 1 min: Cough or Sneeze or Pulls Away Muscle Tone 1 min: Active Motion Color 1 min: Blue/Pale Resuscitation Effort 1 min: Tactile Stimulation SCORE 1 MIN: 8 Heart Rate 5 min: >100 bpm Resp Effort 5 min: Good Cry Reflex Irritability 5 min: Cough or Sneeze or Pulls Away Muscle Tone 5 min: Active Motion Color 5 min: Body [place], Extremities Blue Resuscitation Effort 5 min: Tactile Stimulation SCORE 5 MIN: 9 INFORMATION BABY A Gestational Age at Delivery: 39.3 Gestational Status: Full Term- 39- 40.6 Weeks Infant Outcome : Liveborn Condition : Stable Infant Sex: Female IDENTIFICATION BABY A Verification Date/Time: 07/11/2016 13:37 ID Band Number: [id number] Mother's Name Verified: Yes RN Verifying : Heraclio Horn [facility] Additional Verifying Personnel: [employer]Sent RN WEIGHT/LENGTH BABY A Infant Birthweight (gm): 3795 Weight (lb): 8 Infant Weight (oz): 6 Infant Length (in): 20.75 Length (cm): 52.71 CORD INFORMATION BABY A No. Cord Vessels: 3 Nuchal Cord : N/A Cord Blood Taken: Yes-For Storage (Mom's Blood type +) Infant Suction: Mouth; Nose ASSESSMENT BABY A Complications: None Physical Findings at Delivery: Within Normal Limits Respirations: Appears Normal Trackmobile Operator/ALS Called : No Transferred To: Remains with Mother SIGNATURES Signature: with User ID: [email or web address]
== END 2016-07-14 15:25 | disposition home or self-care (01) | DRG 774 ==
LOC: LC 10:21 → LR 10:45 → 2S 15:22
PROVIDERS: ADMIT Obstetrics & Gynecology; ATTEND Obstetrics & Gynecology
PROC: 10E0XZZ Delivery of Products of Conception, External Approach (ICD-10-PCS; principal; 2016-07-11)
PROC: 4A1HXCZ Monitoring of Products of Conception, Cardiac Rate, External Approach (ICD-10-PCS; 2016-07-11)
DX: O99.12 Other diseases of the blood and blood-forming organs and certain disorders involving the immune mechanism complicating childbirth (principal); O86.4 Pyrexia of unknown origin following delivery; D62 Acute posthemorrhagic anemia; N39.0 Urinary tract infection, site not specified; O75.3 Other infection during labor; B96.1 Klebsiella pneumoniae [K. pneumoniae] as the cause of diseases classified elsewhere; O99.02 Anemia complicating childbirth; Z87.891 Personal history of nicotine dependence; Z37.0 Single live birth; Z3A.39 39 weeks gestation of pregnancy
CPT/HCPCS: 36415; 80048; 80170; 80307; 81005; 82565; 85025; 86592; 86850; 86900; 86901; 87040; 87086; 87088; 87186; J0295; J1050; J1580; J2210; J2300; J2550; J2590; J3490

== ENCOUNTER 2016-10-31 01:30 | Emergency (ER) | payer SELFPAY ==
[2016-10-31] MEDS ORDERED: LORAZEPAM INJ 2 MG/1 ML VIAL IV ONE (01:48)
--- NOTE | 2016-10-31 01:49 | ER Document Report ---
ED General - General Stated Complaint: CHEST PAIN Time Seen by Provider: 10/31/16 01:41 Notes: Patient is a 26-year-old female who presents with complaint of onset of a numb type feeling into her left arm and felt as if her heart was racing and she was short of breath. Patient these types of episodes. She says this 1 is worse than what she has had in the past. She says they have been ongoing for over a year but seemed to have become more frequent since having her child 4 months ago. No associated chest pain. No recent leg pain or leg swelling. No history of heart disease. Family history of heart disease. Her dad had a heart attack at age 42. Patient has no other complaints at this time. Patient says when she had these episodes in the past her typically talk to calm her down. TRAVEL OUTSIDE OF THE [place] 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 Denies: Hx Pelvic Inflammatory Disease Musculoskeltal Medical History: Reports Hx Musculoskeletal Trauma Traumatic Medical History: Reports: Hx Fractures Past Surgical History: Reports: Hx Gynecologic Surgery - ectopic - Immunizations Immunizations up to date: Yes Hx Diphtheria, Pertussis, Tetanus Vaccination: Yes - 2011 Review of Systems - Review of Systems Notes: My Normal Review Basic REVIEW OF SYSTEMS: CONSTITUTIONAL : Denies fever, chills, or sweats. Denies recent illness. EENT: Denies eye, ear, throat, or mouth pain or symptoms. Denies nasal or sinus congestion. CARDIOVASCULAR: Palpitations RESPIRATORY: Denies cough, cold, or chest congestion. Denies shortness of breath, difficulty breathing, or wheezing. GASTROINTESTINAL: Denies abdominal pain. Denies nausea, vomiting, or diarrhea. Denies constipation. Last BM: MUSCULOSKELETAL: Denies neck or back pain or joint pain or swelling. SKIN: Denies rash or skin lesions. NEUROLOGICAL: Denies altered mental status or loss of consciousness. Denies headache. Denies weakness or paralysis or loss of use of either side. Denies problems with gait or speech. Denies sensory or motor loss. PSYCHIATRIC: Stress or anxiety. ALL OTHER SYSTEMS REVIEWED AND NEGATIVE. Physical Exam - Vital signs Vitals: Temp BP 98.4 F 143/98 H 10/31/16 01:38 10/31/16 01:38 - Notes Notes: General Appearance: Well nourished, alert, cooperative, no acute distress, no obvious discomfort. Well appearing Vitals: reviewed, See vital signs table. Head: no swelling or tenderness to the head Eyes: PERRL, EOMI, Conjuctiva clear Neck: Supple, no neck tenderness, No thyromegaly Lungs: No wheezing, No rales, No rhonci, No accessory muscle use, good air exchange bilaterally. Heart: Intermittently tachycardic , Regular rythm, No murmur, no rub Abdomen: Normal BS, soft, No rigidity, No abdominal tenderness, No guarding, no rebound, no abdominal masses, no organomegaly Extremities: strength 5/5 in all extremities, good pulses in all extremities, no swelling or tenderness in the extremities, no edema. Skin: warm, dry, appropriate color, no rash Neuro: speech clear, oriented x 3, normal affect, responds appropriately to questions. Course - Vital Signs Vital signs: Temp Pulse Resp BP Pulse Ox 98.4 F 16 137/93 H 99 10/31/16 01:38 10/31/16 03:00 10/31/16 03:00 10/31/16 03:00 - Laboratory Result Diagrams: 10/31/16 02:15 10/31/16 02:15 Laboratory results interpreted by me: 10/31/16 10/31/16 10/31/16 01:53 02:15 02:15 RDW 14.1 H Plt Count 116 L Chloride 111 H Carbon Dioxide 21 L Urine Blood MODERATE H Ur Leukocyte Esterase TRACE H - EKG Interpretation by Me Additional EKG results interpreted by me: 10/31/16 01:48 EKG is reviewed and interpreted by me. EKG shows sinus tachycardia with rate of [address] segment elevation or depression. No ischemic T-wave inversions. ID interval, QRS duration, QTc intervals are within normal range. Old EKG for comparison is from July 08, 2013. - Transfer of Care Notes: 10/31/16 03:42 Patient symptoms and history seem very consistent with anxiety or panic attacks. When she first arrived her heart rate was between the 90s and 110s. After 1 dose of Ativan her heart rate has now been between the 60s and 70s. I encouraged her to follow-up closely with primary care doctor for reevaluation and to discuss with them whether or not it would be appropriate to place her on SSRI to help prevent recurrent anxiety. Patient encouraged to return to ER immediately if she has recurrence of her symptoms or she feels unwell. Patient agrees with plan and will be discharged home. Dictation of this chart was performed using voice recognition software; therefore, there may be some unintended grammatical errors. Discharge - Discharge Clinical Impression: Palpitations Condition: Good Disposition: HOME, SELF-CARE Additional Instructions: I suspect that your palpitations and numbness in your left arm is probably related to anxiety or stress. This is fairly common, especially with having no children at home. Please follow-up with your physician for further evaluation and also discussions about being placed on medications that can help prevent panic attacks. Please return to the ER immediately if you have recurrence of your symptoms does not improve or if you have any further concerns. Dictation of this chart was performed using voice recognition software; therefore, there may be some unintended grammatical errors.
[2016-10-31 02:27] LABS: ABSOLUTE BASOPHILS # (AUTO) 0.1 10^3/uL (0.0-0.2); ABSOLUTE EOSINOPHILS # (AUTO) 0.1 10^3/uL (0.0-0.6); ABSOLUTE LYMPHOCYTES (AUTO) 2.3 10^3/uL (0.5-4.7); ABSOLUTE MONOCYTES (AUTO) 0.5 10^3/uL (0.1-1.4); ABSOLUTE NEUT (AUTO) 3.3 10^3/uL (1.7-8.2); BASOPHILS % (AUTO) 1.1 % (0-2); EOSINOPHILS % (AUTO) 1.8 % (0-6); HEMATOCRIT 38.3 % (36.0-47.0); HEMOGLOBIN 12.6 g/dL (12.0-15.5); HGB HCT DIFFERENCE -0.5; LYMPHOCYTES % (AUTO) 36.6 % (13-45); MEAN CORPUSCULAR HGB CONC 32.9 g/dL (32.0-36.0); MEAN CORPUSCULAR VOLUME 82 fl (80-97); MONOCYTES % (AUTO) 7.9 % (3-13); RED BLOOD COUNT 4.66 10^6/uL (3.72-5.28); RED CELL DISTRIBUTION WIDTH 14.1 % (11.5-14.0); SEGMENTED NEUTROPHILS % (AUTO) 52.6 % (42-78); WHITE BLOOD COUNT 6.2 10^3/uL (4.0-10.5)
[2016-10-31 02:31] LABS: APPEARANCE,URINE CLEAR; BILIRUBIN,URINE NEGATIVE (NEGATIVE); GLUCOSE, URINE NEGATIVE (NEGATIVE); KETONES,URINE NEGATIVE (NEGATIVE); LEUKOCYTE ESTERASE,URINE TRACE (NEGATIVE); NITRITE,URINE NEGATIVE (NEGATIVE); PROTEIN,URINE NEGATIVE (NEGATIVE); URINE SPECIFIC GRAVITY 1.012; UROBILINOGEN,URINE NEGATIVE mg/dL (<2.0)
[2016-10-31 02:38] LABS: URINE BARBITURATES SCREEN NEGATIVE; URINE METHADONE SCREEN NEGATIVE; URINE OPIATES LOW NEGATIVE; URINE PHENCYCLIDINE SCREEN NEGATIVE
[2016-10-31 02:39] LABS: ALANINE AMINOTRANSFERASE 25 U/L (9-52); ALBUMIN 4.5 g/dL (3.5-5.0); ALKALINE PHOSPHATASE 59 U/L (38-126); ANION GAP 13 (5-19); ASPARTATE AMINO TRANSFERASE 16 U/L (14-36); BILIRUBIN,DIRECT 0.3 mg/dL (0.0-0.4); BILIRUBIN,TOTAL 0.3 mg/dL (0.2-1.3); BLOOD UREA NITROGEN 12 mg/dL (7-20); CALCIUM 9.5 mg/dL (8.4-10.2); CARBON DIOXIDE 21 mmol/L (22-30); CHLORIDE 111 mmol/L (98-107); CREATINE KINASE 85 U/L (30-135); CREATININE RESULT 0.72 mg/dL (0.52-1.25); GLUCOSE 98 mg/dL (75-110); POTASSIUM 3.7 mmol/L (3.6-5.0); SODIUM 144.9 mmol/L (137-145); TOTAL PROTEIN 7.2 g/dL (6.3-8.2)
[2016-10-31 02:54] LABS: CREATINE KINASE MB 0.26 ng/mL (<4.55); TROPONIN I < 0.012 ng/mL
--- NOTE | 2016-10-31 03:34 | RADIOLOGY REPORT (SQ) ---
EXAM DESCRIPTION: CHEST SINGLE VIEW COMPLETED DATE/TIME: 10/31/2016 3:20 am REASON FOR STUDY: palpitations COMPARISON: 09/04/2015. EXAM PARAMETERS: NUMBER OF VIEWS: One view. TECHNIQUE: Single frontal radiographic view of the chest acquired. RADIATION DOSE: NA LIMITATIONS: None. FINDINGS: LUNGS AND PLEURA: No opacities, masses or pneumothorax. No pleural effusion. MEDIASTINUM AND HILAR STRUCTURES: No masses. Contour normal. HEART AND VASCULAR STRUCTURES: Heart normal in size. Normal vasculature. BONES: No acute findings. HARDWARE: None in the chest. OTHER: No other significant finding. IMPRESSION: NO ACUTE RADIOGRAPHIC FINDING IN THE CHEST. TECHNICAL DOCUMENTATION: JOB ID: [id number]
[2016-10-31 04:06] VITALS: BP 136/97
--- NOTE | 2016-11-01 09:26 | EKG REPORT ---
SEVERITY:- BORDERLINE ECG - SINUS TACHYCARDIA INFERIOR Q WAVES, PROBABLY NORMAL VARIATION : Confirmed by: Su Henderson 01-Nov-2016 09:24:53
== END 2016-10-31 04:10 | disposition home or self-care (01) ==
LOC: ER 01:30
DX: R00.2 Palpitations (principal); R00.0 Tachycardia, unspecified; R20.0 Anesthesia of skin; R06.02 Shortness of breath; Z82.49 Family history of ischemic heart disease and other diseases of the circulatory system
CPT/HCPCS: 93005; 99285; 96374; 36415; 82553; 82550; 85025; 81025; 80053; 81001; 84484; 80307; 71010; 93010; J2060

== ENCOUNTER 2017-02-23 13:54 | Emergency (ER) | payer SELFPAY ==
[2017-02-23] MEDS ORDERED: ONDANSETRON 4 MG TAB.RAPDIS SL ONE (14:25)
--- NOTE | 2017-02-23 14:27 | ER Document Report ---
ED GI/ - General Chief Complaint: Nausea/Vomiting/Diarrhea Stated Complaint: FLU LIKE SYMPTOMS Time Seen by Provider: 02/23/17 14:03 Mode of Arrival: Ambulatory Information source: Patient TRAVEL OUTSIDE OF THE [place] IN LAST 30 DAYS: No - HPI Patient complains to provider of: Abdominal pain, Vomiting Onset: Other - 2-3 days Timing/Duration: Gradual Quality of pain: Achy Severity at maximum: Mild Severity in ED: Mild Pain Level: 1 Associated symptoms: Diarrhea, Nausea, Vomiting Notes: 02/23/17 14:26 Patient is a 27-year-old female who presents to the emergency room today complaining of 2 day history of nausea vomiting and diarrhea with diffuse crampy abdominal pain, she reports she has a history of undiagnosed anxiety as well, her symptoms are leading to her having increased anxiety, temperature was 99 1 yesterday evening, no fevers, no urinary symptoms - Related Data Allergies/Adverse Reactions: No Known Allergies Allergy (Verified 02/23/17 14:01) Past Medical History - General Information source: Patient - Social History Smoking Status: Unknown if Ever Smoked Family History: CAD, CVA, Hyperlipidemia Pulmonary Medical History: Reports: Hx Bronchitis Renal/ Medical History: Reports: Hx Ectopic - left, had surgery, 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 Denies: Hx Peritoneal Dialysis, Hx Pelvic Inflammatory Disease Musculoskeltal Medical History: Reports Hx Musculoskeletal Trauma Traumatic Medical History: Reports: Hx Fractures Past Surgical History: Reports: Hx Gynecologic Surgery - ectopic - Immunizations Immunizations up to date: Yes Hx Diphtheria, Pertussis, Tetanus Vaccination: Yes - 2011 Review of Systems - Review of Systems Constitutional: No symptoms reported EENT: No symptoms reported Cardiovascular: No symptoms reported Respiratory: No symptoms reported Gastrointestinal: See HPI Genitourinary: No symptoms reported Female Genitourinary: No symptoms reported Musculoskeletal: No symptoms reported Skin: No symptoms reported Hematologic/Lymphatic: No symptoms reported Neurological/Psychological: No symptoms reported -: Yes All other systems reviewed and negative Physical Exam - Vital signs Vitals: Temp Pulse Resp BP Pulse Ox 98.1 F 96 14 142/98 H 99 02/23/17 14:01 02/23/17 14:01 02/23/17 14:01 02/23/17 14:01 02/23/17 14:01 Interpretation: Normal - General General appearance: Appears well, Alert - HEENT Head: Normocephalic, Atraumatic Eyes: Normal Pupils: PERRL - Respiratory Respiratory status: No respiratory distress Chest status: Nontender Breath sounds: Normal Chest palpation: Normal - Cardiovascular Rhythm: Regular Heart sounds: Normal auscultation Murmur: No - Abdominal Inspection: Normal Distension: No distension Bowel sounds: Normal Tenderness: Nontender Organomegaly: No organomegaly - Back Back: Normal, Nontender - Extremities General upper extremity: Normal inspection, Nontender, Normal color, Normal ROM , Normal temperature General lower extremity: Normal inspection, Nontender, Normal color, Normal ROM , Normal temperature, Normal weight bearing. No: Sergey's sign - Neurological Neuro grossly intact: Yes Cognition: Normal Orientation: AAOx4 Silke Coma Scale Eye Opening: Spontaneous Silke Coma Scale Verbal: Oriented Silke Coma Scale Motor: Obeys Commands Silke Coma Scale Total: 15 Speech: Normal Motor strength normal: LUE, RUE, LLE, RLE Sensory: Normal - Psychological Associated symptoms: Normal affect, Normal mood - Skin Skin Temperature: Warm Skin Moisture: Dry Skin Color: Normal Course - Re-evaluation Re-evalutation: 02/23/17 15:47 Laboratory and physical exam findings are unremarkable, lab findings were discussed with patient at bedside, symptoms likely related to viral illness, with component of anxiety as well, she was given a list of mental health providers in the area to follow-up with and advised to return if any additional concerns, patient acknowledges understanding and agreement with this plan - Vital Signs Vital signs: Temp Pulse Resp BP Pulse Ox 98.1 F 96 14 142/98 H 99 02/23/17 14:01 02/23/17 14:01 02/23/17 14:01 02/23/17 14:01 02/23/17 14:01 - Laboratory Result Diagrams: 02/23/17 14:49 02/23/17 14:49 Laboratory results interpreted by me: 02/23/17 02/23/17 02/23/17 14:49 14:49 14:56 RDW 14.3 H Total Protein 8.3 H Albumin 5.2 H Urine Blood LARGE H Discharge - Discharge Clinical Impression: Anxiety Nausea and vomiting Qualifiers: Vomiting type: unspecified Vomiting Intractability: non-intractable Qualified Code(s): R11.2 - Nausea with vomiting, unspecified Condition: Stable Disposition: HOME, SELF-CARE Instructions: Antinausea Medication ([facility]), Anxiety ([facility]), Vomiting ([facility]) Additional Instructions: Follow up with your primary care provider and a mental health provider in one to 2 days. Return to the emergency room immediately if symptoms worsen or any additional concerns. Prescriptions: Alprazolam [Xanax 0.25 mg Tablet] 0.25 mg PO Q6HP PRN #14 tablet PRN Reason:
[2017-02-23 15:22] LABS: ABSOLUTE LYMPHOCYTES (AUTO) 1.6 10^3/uL (0.5-4.7); ABSOLUTE MONOCYTES (AUTO) 0.6 10^3/uL (0.1-1.4); ABSOLUTE NEUT (AUTO) 5.4 10^3/uL (1.7-8.2); BASOPHILS % (AUTO) 0.6 % (0-2); EOSINOPHILS % (AUTO) 0.1 % (0-6); HEMATOCRIT 43.6 % (36.0-47.0); HEMOGLOBIN 15.2 g/dL (12.0-15.5); LYMPHOCYTES % (AUTO) 20.6 % (13-45); MEAN CORPUSCULAR HEMOGLOBIN 29.3 pg (27.0-33.4); MEAN CORPUSCULAR HGB CONC 34.8 g/dL (32.0-36.0); MEAN CORPUSCULAR VOLUME 84 fl (80-97); MONOCYTES % (AUTO) 7.3 % (3-13); RED BLOOD COUNT 5.19 10^6/uL (3.72-5.28); RED CELL DISTRIBUTION WIDTH 14.3 % (11.5-14.0); SEGMENTED NEUTROPHILS % (AUTO) 71.4 % (42-78); WHITE BLOOD COUNT 7.6 10^3/uL (4.0-10.5)
[2017-02-23 15:30] LABS: ALANINE AMINOTRANSFERASE 30 U/L (9-52); ALBUMIN 5.2 g/dL (3.5-5.0); ALKALINE PHOSPHATASE 79 U/L (38-126); ANION GAP 12 (5-19); ASPARTATE AMINO TRANSFERASE 20 U/L (14-36); BILIRUBIN,DIRECT 0.4 mg/dL (0.0-0.4); BILIRUBIN,TOTAL 0.8 mg/dL (0.2-1.3); BLOOD UREA NITROGEN 8 mg/dL (7-20); CALCIUM 10.2 mg/dL (8.4-10.2); CARBON DIOXIDE 25 mmol/L (22-30); CHLORIDE 105 mmol/L (98-107); CREATININE RESULT 0.74 mg/dL (0.52-1.25); GLUCOSE 92 mg/dL (75-110); LIPASE 33.9 U/L (23-300); POTASSIUM 4.3 mmol/L (3.6-5.0); SODIUM 142.1 mmol/L (137-145); TOTAL PROTEIN 8.3 g/dL (6.3-8.2)
[2017-02-23 15:32] LABS: APPEARANCE,URINE CLEAR; BILIRUBIN,URINE NEGATIVE (NEGATIVE); GLUCOSE, URINE NEGATIVE (NEGATIVE); KETONES,URINE NEGATIVE (NEGATIVE); LEUKOCYTE ESTERASE,URINE NEGATIVE (NEGATIVE); NITRITE,URINE NEGATIVE (NEGATIVE); PROTEIN,URINE NEGATIVE (NEGATIVE); URINE SPECIFIC GRAVITY 1.004; UROBILINOGEN,URINE NEGATIVE mg/dL (<2.0)
[2017-02-23 16:28] VITALS: BP 138/97
== END 2017-02-23 15:45 | disposition home or self-care (01) ==
LOC: ER 13:54
DX: R11.2 Nausea with vomiting, unspecified (principal); R19.7 Diarrhea, unspecified; F41.9 Anxiety disorder, unspecified; R10.84 Generalized abdominal pain
CPT/HCPCS: 99283; 36415; 87086; 83690; 84703; 85025; 87088; 80053; 81001; S0119

== ENCOUNTER 2017-07-02 16:53 | Emergency (ER) | payer SELFPAY ==
--- NOTE | 2017-07-02 17:05 | ER Document Report ---
HPI - HPI Patient complains to provider of: urinary frequency Onset: Other - 3 days Quality of pain: Burning Severity: Moderate Pain Level: 3 Context: Pt reports urinary frequency and pain with void for a few days. Reports strong smelling urine. Denies f/v/d. Reports some nausea but declines antinausea medication. Reports history of UTI's. Denies abdominal pain Associated Symptoms: Nausea Exacerbated by: Denies Relieved by: Denies Similar symptoms previously: Yes Recently seen / treated by doctor: No - REPRODUCTIVE Reproductive: REPORTS: : Past Medical History - General Information source: Patient Last Menstrual Period: 06/19/17 - Social History Smoking Status: Current Every Day Smoker Cigarette use (# per day): Yes Frequency of alcohol use: None Drug Abuse: None Occupation: [employer] Lives with: Family Family History: CAD, CVA, Hyperlipidemia Patient has suicidal ideation: No Patient has homicidal ideation: No Pulmonary Medical History: Reports: Hx Bronchitis Renal/ Medical History: Reports: Hx Ectopic - left, had surgery, 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 Denies: Hx Peritoneal Dialysis, Hx Pelvic Inflammatory Disease Musculoskeltal Medical History: Reports Hx Musculoskeletal Trauma Traumatic Medical History: Reports: Hx Fractures Past Surgical History: Reports: Hx Gynecologic Surgery - ectopic - Immunizations Immunizations up to date: Yes Hx Diphtheria, Pertussis, Tetanus Vaccination: Yes - 2011 [facility] Provider Document - CONSTITUTIONAL Agree With Documented VS: Yes Exam Limitations: No Limitations - INFECTION CONTROL TRAVEL OUTSIDE OF THE [place] IN LAST 30 DAYS: No - HEENT HEENT: Atraumatic, Normocephalic - NECK Neck: Normal Inspection, Supple. negative: Lymphadenopathy-Left, Lymphadenopathy-Right - RESPIRATORY Respiratory: Breath Sounds Normal, No Respiratory Distress - CARDIOVASCULAR Cardiovascular: Regular Rate - GI/ABDOMEN Gastrointestinal: Abdomen Soft, Abdomen Non-Tender - BACK Back: Normal Inspection. negative: CVA Tenderness-Right, CVA Tenderness-Left - MUSCULOSKELETAL/EXTREMETIES Musculoskeletal/Extremeties: MARION ARRIOLA - NEURO Level of Consciousness: Awake, Alert, Appropriate Motor/Sensory: No Motor Deficit - DERM Integumentary: Warm, Dry Course - Re-evaluation Re-evalutation: 07/02/17 18:16 UA shows negative hCG positive nitrite leukocytes. Patient will be treated with Pyridium here and Septra. Patient was instructed on Septra signs and symptoms of allergic reaction. She verbalized understanding to all instructions. Urine culture pending. Discharge - Discharge Clinical Impression: Dysuria UTI (urinary tract infection) Qualifiers: Urinary tract infection type: site unspecified Hematuria presence: with hematuria Qualified Code(s): N39.0 - Urinary tract infection, site not specified ; R31.9 - Hematuria, unspecified; R31.9 - Hematuria, unspecified Condition: Stable Instructions: Trimethoprim-Sulfa ([facility]), Urinary Tract Infection ([facility]), Urinary Anesthetic Agent ([facility]) Additional Instructions: *You have been evaluated for pain while voiding, UTI *Take medication as prescribed *Push fluids *Follow up with your primary care provider within one week for recheck *Plan urine recheck in one week *Return to ED for worsening condition, changes, needs Prescriptions: Sulfamethoxazole/Trimethoprim [Bactrim Ds Tablet] 1 each PO BID #6 tablet
[2017-07-02 17:34] LABS: APPEARANCE,URINE CLOUDY; BILIRUBIN,URINE NEGATIVE (NEGATIVE); COLOR,URINE YELLOW; GLUCOSE, URINE NEGATIVE (NEGATIVE); KETONES,URINE NEGATIVE (NEGATIVE); LEUKOCYTE ESTERASE,URINE LARGE (NEGATIVE); NITRITE,URINE POSITIVE (NEGATIVE); PROTEIN,URINE 100 mg/dL (NEGATIVE); URINE SPECIFIC GRAVITY 1.016; UROBILINOGEN,URINE NEGATIVE mg/dL (<2.0)
[2017-07-02] MEDS ORDERED: SULFAMETHOXAZOLE/TRIMETHOPRIM 800-160 MG TABLET PO ONE (18:09)
[2017-07-02] MEDS ORDERED: PHENAZOPYRIDINE HCL 200 MG TABLET PO ONE (18:09)
[2017-07-02 18:20] VITALS: BP 105/86
== END 2017-07-02 18:19 | disposition home or self-care (01) ==
LOC: ER 16:53
DX: N39.0 Urinary tract infection, site not specified (principal); R31.9 Hematuria, unspecified; R30.0 Dysuria; R35.0 Frequency of micturition; R11.0 Nausea; F17.210 Nicotine dependence, cigarettes, uncomplicated
CPT/HCPCS: 99283; 87086; 81025; 87088; 81001; 87186; J3490

== ENCOUNTER 2018-03-09 15:04 | Outpatient (CLI) | payer MEDICAID ==
[2018-03-09 15:42] LABS: APPEARANCE,URINE SLIGHTLY-CLOUDY; BILIRUBIN,URINE NEGATIVE (NEGATIVE); COLOR,URINE YELLOW; GLUCOSE, URINE NEGATIVE (NEGATIVE); KETONES,URINE NEGATIVE (NEGATIVE); LEUKOCYTE ESTERASE,URINE NEGATIVE (NEGATIVE); NITRITE,URINE NEGATIVE (NEGATIVE); PROTEIN,URINE NEGATIVE (NEGATIVE); UROBILINOGEN,URINE NEGATIVE mg/dL (<2.0)
[2018-03-09] MEDS ORDERED: RINGERS SOLUTION,LACTATED 1,000 ML IV PRN (15:44)
[2018-03-09 15:55] LABS: URINE AMPHETAMINES SCREEN NEGATIVE; URINE BARBITURATES SCREEN NEGATIVE; URINE BENZODIAZEPINES SCREEN NEGATIVE; URINE COCAINE SCREEN NEGATIVE; URINE MARIJUANA (THC) SCREEN NEGATIVE; URINE METHADONE SCREEN NEGATIVE; URINE PHENCYCLIDINE SCREEN NEGATIVE
--- NOTE | 2018-03-09 17:35 | RADIOLOGY REPORT (SQ) ---
EXAM DESCRIPTION: U/S OB LIMITED COMPLETED DATE/TIME: 03/09/2018 5:09 pm REASON FOR STUDY: iup 32.2 pelvic pressure for cervical length COMPARISON: None. TECHNIQUE: Limited transabdominal grayscale ultrasound for evaluation of specific requested obstetri andrew parameters. LIMITATIONS: None. FINDINGS: CERVICAL LENGTH: 3.9 cm Closed. FHR: 144 beats per minute. PRESENTATION: Cephalic. PLACENTA: Not assessed ANATOMY: Not assessed OTHER: No other significant findings. IMPRESSION: LIMITED OBSTETRICAL ULTRASOUND WITH MEASURED PARAMETERS DELINEATED ABOVE. Trimester of : Third trimester - 28 weeks to delivery. TECHNICAL DOCUMENTATION: JOB ID: [id number] [employer]- All Rights Reserved Reading location - IP/workstation name: [email or web address]
--- NOTE | 2018-03-09 18:34 | Non Stress Test Report ---
Non Stress Test Datetime Report Generated by CPN: 03/09/2018 18:34 DEMOGRAPHIC EGA NST: 32.2 INDICATION Indication for Study: Ordered by Provider; Other Indication for Study (NST) Other: LABOR CHECK- CRAMPING MONITORING Monitor Explained: Monitor Explained; Test Explained; Patient Verbalized Understanding Time on Monitor: 03/09/2018 17:05 Time off Monitor: 03/09/2018 17:46 NST Duration: 41 NST INTERVENTIONS NST Interventions: PO Hydration; Reposition Patient Physician Notified NST: DR NUNN REVIEWED STRIP BABY A: [id number] BABY A Movement : Present Contraction Frequency : IRRITABILITY FHR Baseline : 135 Accelerations : 15X15 Decelerations : None Variability : Moderate 6-25bpm NST Review: Meets Criteria for Reactive NST NST Review and Verified By : Mariela salazar RNC NST Results: Reactive NST REPORT Report Trigger: Send Report
== END 2018-03-09 18:21 | disposition home or self-care (01) ==
LOC: LC 15:04
PROVIDERS: ATTEND Student in an Organized Health Care Education/Training Program
PROC: 4A1HXCZ Monitoring of Products of Conception, Cardiac Rate, External Approach (ICD-10-PCS; principal; 2018-03-09)
DX: O47.03 False labor before 37 completed weeks of gestation, third trimester (principal); Z3A.32 32 weeks gestation of pregnancy
CPT/HCPCS: 59025; 76815; 80307; 81001

== ENCOUNTER 2018-04-26 06:34 | Inpatient (IN) | payer MEDICAID ==
[2018-04-26] MEDS ORDERED: RINGERS SOLUTION,LACTATED 300 ML IV ONE (06:46)
[2018-04-26] MEDS ORDERED: OXYTOCIN/NORMAL SALINE 20 UNIT/1,000 ML RTUINJ IV PRN ×3 (06:46→13:55)
--- NOTE | 2018-04-26 06:53 | Admission Physical ---
Datetime Report Generated by CPN: 04/26/2018 06:52 CURRENT ADMISSION Chief Complaint: Scheduled Induction of Labor Indication for Induction- Other: Gestational Thrombocytopenia Admit Impression : No Active Labor; Intact Membranes Admit Plan: Admit to Unit; Initiate Labor Induction Protocol ALLERGIES Medication Allergies: No Medication Allergies: No Known Allergies (04/26/2018) Latex: No Latex Allergies Food Allergies: NONE Environmental Allergies: NONE OBSTETRICAL HISTORY EDC: 05/02/2018 00:00 : 7 Para: 5 Term: 5 : 0 SAB: 0 IAB: 0 Ectopic: 1 Livin Cesareans: 0 VBACs: 0 Multiple Births: 0 MEDICAL HISTORY Blood Transfusion: Yes (Annotations: Data stored by [email or web address] on behalf of user) Hosp/Surgery: Yes Kidney Disease: Yes Psychiatric Disorders: Yes Medical History Comments: buspar and zoloft PHYSICAL EXAM General: Normal HEENT: Normal Neurologic: Normal Thyroid: Normal Heart: Normal Lungs: Normal Breast: Normal Back: Normal Abdomen: Normal Genitourinary Exam: Normal Extremities: Normal DTRs: Normal Pelvic Type: Adequate Vital Signs: Reviewed; Within Normal Limits VAGINAL EXAM Dilatation: 4 Effacement: 50% Station: -3 Contraction Comments: irregular MEMBRANES Membranes: Intact FETUS A EGA: 39.1 Monitoring: External US FHR- Baseline: 130s Variability: Moderate 6-25bpm Accelerations: 15X15 Decelerations: None INFORMED CONSENT Signature: with User ID: [email or web address]
[2018-04-26 07:52] LABS: APPEARANCE,URINE CLOUDY; BILIRUBIN,URINE NEGATIVE (NEGATIVE); COLOR,URINE YELLOW; GLUCOSE, URINE NEGATIVE (NEGATIVE); KETONES,URINE NEGATIVE (NEGATIVE); LEUKOCYTE ESTERASE,URINE MODERATE (NEGATIVE); NITRITE,URINE NEGATIVE (NEGATIVE); PROTEIN,URINE NEGATIVE (NEGATIVE); URINE SPECIFIC GRAVITY 1.008; UROBILINOGEN,URINE NEGATIVE mg/dL (<2.0)
[2018-04-26 07:58] LABS: ABSOLUTE EOSINOPHILS # (AUTO) 0.1 10^3/uL (0.0-0.6); ABSOLUTE LYMPHOCYTES (AUTO) 1.5 10^3/uL (0.5-4.7); ABSOLUTE MONOCYTES (AUTO) 0.8 10^3/uL (0.1-1.4); ABSOLUTE NEUT (AUTO) 5.1 10^3/uL (1.7-8.2); BASOPHILS % (AUTO) 0.4 % (0-2); EOSINOPHILS % (AUTO) 0.9 % (0-6); HEMOGLOBIN 10.1 g/dL (12.0-15.5); LYMPHOCYTES % (AUTO) 19.8 % (13-45); MEAN CORPUSCULAR HEMOGLOBIN 27.1 pg (27.0-33.4); MEAN CORPUSCULAR HGB CONC 33.5 g/dL (32.0-36.0); MEAN CORPUSCULAR VOLUME 81 fl (80-97); MONOCYTES % (AUTO) 10.3 % (3-13); PLATELET COUNT 104 10^3/uL (150-450); RED BLOOD COUNT 3.72 10^6/uL (3.72-5.28); RED CELL DISTRIBUTION WIDTH 23.3 % (11.5-14.0); SEGMENTED NEUTROPHILS % (AUTO) 68.6 % (42-78); TOTAL CELLS COUNTED % (AUTO) 100 %; WHITE BLOOD COUNT 7.4 10^3/uL (4.0-10.5)
[2018-04-26] MEDS ORDERED: LIDOCAINE 1% INJ-PF (10 MG/ML) 30 ML SDV ONE (08:03)
[2018-04-26] MEDS ORDERED: MISOPROSTOL 0.2 MG TABLET ONE (08:03)
[2018-04-26] MEDS ORDERED: OXYTOCIN/NORMAL SALINE 20 UNIT/1,000 ML RTUINJ ONE (08:03)
[2018-04-26 08:11] LABS: URINE AMPHETAMINES SCREEN NEGATIVE; URINE BARBITURATES SCREEN NEGATIVE; URINE BENZODIAZEPINES SCREEN NEGATIVE; URINE COCAINE SCREEN NEGATIVE; URINE MARIJUANA (THC) SCREEN NEGATIVE; URINE METHADONE SCREEN NEGATIVE; URINE PHENCYCLIDINE SCREEN NEGATIVE
[2018-04-26] MEDS: RINGERS SOLUTION,LACTATED 1,000 ML IV PRN ×2 (08:36→11:34)
[2018-04-26] MEDS ORDERED: EPHEDRINE SULFATE INJ 50 MG/1 ML AMPULE ONE (10:36)
[2018-04-26] MEDS ORDERED: FENTANYL/BUPIVACAINE/NS/PF 300 MCG/150 ML RTUINJ EPI ONE (10:36)
[2018-04-26] MEDS ORDERED: BUPIVACAINE HCL 0.5 % INJ/PF 30 ML SDV ONE (10:36)
--- NOTE | 2018-04-26 12:46 | L&D Progress Notes ---
PROGRESS NOTES Datetime Report Generated by CPN: 04/26/2018 12:45 PROGRESS NOTE Impression: Normal Progression of Labor; Reassuring Heart Rate Impression Other: Gestational Thrombocytopenia Procedures- Other: SROM Plan: Continue Present Management; Anticipate Vaginal Delivery Informed Consent Obtained: Vaginal Delivery Vital Signs : Reviewed; Within Normal Limits Comment: comfortable with the epidural. SROM after her epidural. Anticipate soon VAGINAL EXAM Dilatation: 4 Effacement: 50% Station: -3 Contractions: irregular LAST VAGINAL EXAM-NURSING Dilitation: 9.0 Dilitation: 1.0 Effacement: 100 Effacement: 50 Station: 1 Station: -3 MEMBRANES Membranes: Intact FETUS A : 39.1 SIGNATURE SIGNATURE: [id number];[id number];[id number] SIGNATURE: [id number];[id number] SIGNATURE: [id number] Assignment: Priyank Ch MD Signature: with User ID: [email or web address] : with User ID: [email or web address]
[2018-04-26] MEDS ORDERED: DIBUCAINE 1% OINTMENT 28 GM TP PRN ×2 (13:08→13:55)
[2018-04-26] MEDS ORDERED: ACETAMINOPHEN WITH CODEINE #3 TABLET PO PRN ×4 (13:08→13:55)
[2018-04-26] MEDS ORDERED: MEASLES,MUMPS&RUBELLA VACC/PF 0.5 ML VIAL SUBCUT PRN ×2 (13:08→13:55)
[2018-04-26] MEDS ORDERED: DIPH/PERTUSS(ACELL)/TETANUS VAC/PF 0.5 ML SYR (>=10YO) IM PRN ×2 (13:08→13:55)
[2018-04-26] MEDS ORDERED: BENZOCAINE/MENTHOL AEROSOL SPRAY 56 ML TOP PRN ×2 (13:08→13:55)
[2018-04-26] MEDS ORDERED: ZOLPIDEM TARTRATE 5 MG TABLET PO PRN (13:55)
[2018-04-26] MEDS ORDERED: IBUPROFEN 800 MG TABLET PO SCH (14:00)
--- NOTE | 2018-04-26 15:59 | Delivery Summary ---
Del Sum A-C Datetime Report Generated by CPN: 04/26/2018 15:59 DELIVERY PERSONNEL DELIVERY PERSONNEL: [id number] Delivery Doctor:: Tri Meyers CNM Labor and Delivery Nurse:: Rajiv Mancini RNouter diameter grinder tool Nurse:: Serina Mcdaniel RN MATERNAL INFORMATION Delivery Anesthesia: Epidural Medications After Delivery: Pitocin Bolus-Please Comment Meds After Delivery Comment: Pitocin 20 Units in 1000 NS, bolusing per order Maternal Complications: None Provider Comments: of viable baby girl, delivered and placed on pts abdoman in stable condition. Cord clampted and cut. Cord blood obtained. Placenta S/C/I IV Pitocin infusing. Cytotec 200 mcg SL placed and then 800 mcg placed rectally due to uterine atony. Uterus did respond w/ bimanual massage. Perineum intact. Pt in stable condition. Skin to Skin w/ baby Madisson. Plans to bottle feed. Placenta to path due to Gestational Thrombocytopenia. Attending MD is Dr Ch LABOR SUMMARY EDC: 05/02/2018 00:00 No. Babies in Womb: 1 Attempted: No Labor Anesthesia: Epidural LABOR INFORMATION Reason for Induction: Other Reason for Induction- Other: Thrombocytopenia Onset of Labor: 04/26/2018 10:00 Complete Dilatation: 04/26/2018 12:40 Cervical Ripening Agents: Cytotec @ 800 Oxytocin: Induction Group B Beta Strep: neg Steroids Given: None Reason Steroids Not Administered: Not Applicable MEMBRANES Membranes Rupture Method: Spontaneous Rupture of Membranes: 04/26/2018 12:07 Length of Rupture (hr): 0.70 Amniotic Fluid Color: Clear Amniotic Fluid Amount: Small Amniotic Fluid Odor: Normal STAGES OF LABOR Stage 1 hr: 2 Stage 1 min: 40 Stage 2 hr: 0 Stage 2 min: 9 Stage 3 hr: 0 Stage 3 min: 3 Total Time in Labor hr: 2 Total Time in Labor min: 52 VAGINAL DELIVERY Episiotomy: None Laceration #1: None Laceration Extension #1: N/A Laceration Repair: Not Applicable CSECTION DELIVERY Primary Indication: N/A Secondary Indication: N/A CSection Incidence: N/A Labor: N/A Elective: N/A CSection Incision: N/A BABY A INFORMATION Delivery Date/Time: 04/26/2018 12:49 Method of Delivery: Vaginal Born in Route : No : N/A Forceps: N/A Vacuum Extraction: N/A Shoulder Dystocia : No PRESENTATION/POSITION BABY A Presentation: Cephalic Cephalic Presentation: Vertex Vertex Position: Left Occipital Anterior Breech Presentation: N/A PLACENTA INFORMATION BABY A Placenta Delivery Time : 04/26/2018 12:52 Placenta Method of Delivery: Spontaneous Placenta Status: Delivered SCORES BABY A Heart Rate 1 min: >100 bpm Resp Effort 1 min: Slow, Irregular Reflex Irritability 1 min: Cough or Sneeze or Pulls Away Muscle Tone 1 min: Some Flexion of Extremities Color 1 min: Blue/Pale Resuscitation Effort 1 min: Tactile Stimulation SCORE 1 MIN: 6 Heart Rate 5 min: >100 bpm Resp Effort 5 min: Slow, Irregular Reflex Irritability 5 min: Cough or Sneeze or Pulls Away Muscle Tone 5 min: Active Motion Color 5 min: Body [place], Extremities Blue Resuscitation Effort 5 min: Tactile Stimulation SCORE 5 MIN: 8 INFORMATION BABY A Gestational Age at Delivery: 39.1 Gestational Status: Full Term- 39- 40.6 Weeks Infant Outcome : Liveborn Infant Condition : Stable Sex: Female IDENTIFICATION BABY A Verification Date/Time: 04/26/2018 13:07 ID Band Number: [id number] Mother's Name Verified: Yes Infant RN Verifying : Amador Mcdaniel, RN, RKeshav Mancini RN WEIGHT/LENGTH BABY A Birthweight (gm): 3648 Weight (lb): 8 Weight (oz): 1 Length (in): 19.25 Infant Length (cm): 48.90 CORD INFORMATION BABY A No. Cord Vessels: 3 Nuchal Cord : N/A Cord Blood Taken: Yes-For Storage (Mom's Blood type +) Suction: Mouth; Nose ASSESSMENT BABY A Infant Complications: None Physical Findings at Delivery: Within Normal Limits Infant Respirations: Appears Normal Director Learning And Development/ALS Called : No Care By: B,Roulund Transferred To: Remains with Mother BABY B INFORMATION : N/A SIGNATURES Assignment: Priyank Ch MD Signature: with User ID: [email or web address] : with User ID: [email or web address]
[2018-04-26] MEDS: DOCUSATE SODIUM 100 MG CAPSULE PO SCH (17:08)
[2018-04-26] MEDS: FERROUS SULFATE 325 MG TABLET PO SCH (17:09)
[2018-04-26] MEDS ORDERED: FERROUS SULFATE 325 MG TABLET PO SCH (18:00)
[2018-04-26] MEDS ORDERED: DOCUSATE SODIUM 100 MG CAPSULE PO SCH (18:00)
[2018-04-26] MEDS: BUSPIRONE HCL 10 MG TABLET PO SCH (21:03)
[2018-04-26] MEDS: IBUPROFEN 800 MG TABLET PO SCH (21:04)
[2018-04-27] MEDS: IBUPROFEN 800 MG TABLET PO SCH ×3 (05:15→21:14)
[2018-04-27] MEDS: BUSPIRONE HCL 10 MG TABLET PO SCH ×3 (05:15→21:13)
[2018-04-27 06:27] LABS: HEMATOCRIT 28.3 % (36.0-47.0); HEMOGLOBIN 9.3 g/dL (12.0-15.5); MEAN CORPUSCULAR HEMOGLOBIN 26.7 pg (27.0-33.4); MEAN CORPUSCULAR VOLUME 81 fl (80-97); PLATELET COUNT 101 10^3/uL (150-450); RED CELL DISTRIBUTION WIDTH 23.1 % (11.5-14.0); WHITE BLOOD COUNT 8.6 10^3/uL (4.0-10.5)
[2018-04-27] MEDS: SENNOSIDES/DOCUSATE 8.6-50 MG 1 EACH TABLET PO SCH (09:46)
[2018-04-27] MEDS: PRENATAL VITAMIN W DHA CAPSULE PO SCH (09:46)
[2018-04-27] MEDS: FERROUS SULFATE 325 MG TABLET PO SCH ×2 (09:46→18:27)
[2018-04-27] MEDS: DOCUSATE SODIUM 100 MG CAPSULE PO SCH ×2 (09:46→18:27)
[2018-04-27] MEDS: SERTRALINE HCL 50 MG TABLET PO SCH (09:46)
[2018-04-27] MEDS ORDERED: SENNOSIDES/DOCUSATE 8.6-50 MG 1 EACH TABLET PO SCH (10:00)
[2018-04-27] MEDS ORDERED: PRENATAL VITAMIN W DHA CAPSULE PO SCH (10:00)
--- NOTE | 2018-04-27 10:39 | PDOC PROGRESS REPORT ---
Subjective-OB Progress Note for:: 04/27/18 Subjective: Pt doing well, reports light bleeding, reg diet and voiding without difficulty. Physical Exam (OB) Vital Signs: Temp Pulse Resp BP Pulse Ox 98.0 F 70 15 116/79 99 04/27/18 07:37 04/27/18 07:37 04/27/18 07:37 04/27/18 07:37 04/27/18 07:37 Intake & Output 04/26/18 04/27/18 04/28/18 06:59 06:59 06:59 Intake Total 1371 Balance 1371 Weight 81.9 kg - Abdomen Description: Soft, Round Fundal Description: Midline Fundal Height: u/u - u/2 Objective-Diagnostic Laboratory: 04/27/18 06:04 04/27/18 06:04 WBC 8.6 RBC 3.50 L Hgb 9.3 L Hct 28.3 L MCV 81 MCH 26.7 L MCHC 33.0 RDW 23.1 H Plt Count 101 L Assessment and Plan(PN) - Assessment and Plan (1) (normal spontaneous vaginal delivery) Is this a current diagnosis for this admission?: Yes (2) Acute blood loss anemia Is this a current diagnosis for this admission?: Yes - Time Spent with Patient Time with patient: Less than 15 minutes Smoking Education Provided: Over 3 minutes Medications reviewed and adjusted accordingly: Yes - Disposition Anticipated Discharge: Home Within: within 24 hours
[2018-04-28] MEDS: BUSPIRONE HCL 10 MG TABLET PO SCH (06:43)
[2018-04-28] MEDS: IBUPROFEN 800 MG TABLET PO SCH (06:44)
[2018-04-28] MEDS: PRENATAL VITAMIN W DHA CAPSULE PO SCH (09:44)
[2018-04-28] MEDS: FERROUS SULFATE 325 MG TABLET PO SCH (09:44)
[2018-04-28] MEDS: SERTRALINE HCL 50 MG TABLET PO SCH (09:44)
[2018-04-28] MEDS: DOCUSATE SODIUM 100 MG CAPSULE PO SCH (09:44)
[2018-04-28] MEDS: SENNOSIDES/DOCUSATE 8.6-50 MG 1 EACH TABLET PO SCH (09:44)
--- NOTE | 2018-04-28 10:59 | PDOC PROGRESS REPORT ---
Subjective-OB Progress Note for:: 04/28/18 Subjective: Doing well, no c/o, bottle feeding, walking, eating well Physical Exam (OB) Vital Signs: Temp Pulse Resp BP Pulse Ox 98.0 F 70 15 116/79 99 04/27/18 07:37 04/27/18 07:37 04/27/18 07:37 04/27/18 07:37 04/27/18 07:37 Intake & Output 04/27/18 04/28/18 04/29/18 06:59 06:59 06:59 Intake Total 1371 500 300 Balance 1371 500 300 - PIH/Pre-Eclampsia DTR's: 1 + Clonus: Negative Headache: Absent Epigastric Pain: No Visual Changes: No - Dressing Removed: No - Bilateral Tubal Ligation Dressing Removed: No - Lochia Lochia Amount: Scant < 10 ml Lochia Color: Rubra/Red - Abdomen Description: Tender, Soft Hernia Present: No Fundal Description: Firm, Midline Fundal Height: u/u - u/2 Objective-Diagnostic Laboratory: 04/27/18 06:04 Assessment and Plan(PN) - Assessment and Plan (1) Benign gestational thrombocytopenia in third trimester Is this a current diagnosis for this admission?: Yes (2) Immediate hemorrhage, with delivery Is this a current diagnosis for this admission?: Yes (3) (normal spontaneous vaginal delivery) Is this a current diagnosis for this admission?: Yes (4) Acute blood loss anemia Is this a current diagnosis for this admission?: Yes - Time Spent with Patient Time with patient: Less than 15 minutes Smoking Education Provided: Over 3 minutes Medications reviewed and adjusted accordingly: Yes - Disposition Anticipated Discharge: Home Within: within 24 hours
--- NOTE | 2018-04-28 11:05 | PDOC DISCHARGE SUMMARY ---
Final Diagnosis Discharge Date: 04/28/18 - Final Diagnosis (1) Benign gestational thrombocytopenia in third trimester Is this a current diagnosis for this admission?: Yes (2) Immediate hemorrhage, with delivery Is this a current diagnosis for this admission?: Yes (3) (normal spontaneous vaginal delivery) Is this a current diagnosis for this admission?: Yes (4) Acute blood loss anemia Is this a current diagnosis for this admission?: Yes Discharge Data - Discharge Medication Prescriptions: Ferrous Sulfate [Feosol 325 mg Tablet] 325 mg PO BID #60 tablet Home Medications: No.116/Iron/Folic/Dha [Expecta Combo Pack] 1 tab PO DAILY Buspirone HCl [Buspar 5 mg Tablet] 1 tab PO TID 03/09/18 Sertraline HCl [Zoloft 50 mg Tablet] 1 tab PO DAILY 03/09/18 Ferrous Sulfate [Feosol 325 mg Tablet] 325 mg PO BID #60 tablet 04/28/18 Vit/Dha [ Multi + Dha Capsule] 1 cap PO DAILY capsule Gestational Age: 39.1 Reason(s) for Admission: Onset of Labor Procedures: Ultrasound Intrapartum Procedure(s): Spontaneous Vaginal Delivery - Data Baby 1 Female Home with Mother: Yes Complications: No - Diagnosis Test Laboratory: Temp Pulse Resp BP Pulse Ox 98.0 F 70 15 116/79 99 04/27/18 07:37 04/27/18 07:37 04/27/18 07:37 04/27/18 07:37 04/27/18 07:37 04/26/18 04/26/18 04/27/18 06:45 07:30 06:04 RBC 3.72 3.50 L Hgb 10.1 L 9.3 L Hct 30.0 L 28.3 L Urine Opiates Screen NEGATIVE - Discharge information/Instructions Discharge Activity: Activity As Tolerated, No Lifting Over 10 Pounds, No Lifting /Push/Pulling, Pelvic Rest Discharge Diet: As Tolerated, Regular Disposition: HOME, SELF-CARE Follow up with: [facility] in: 4, Weeks
[2018-04-28 12:27] VITALS: BP 110/60
== END 2018-04-28 13:50 | disposition home or self-care (01) | DRG 807 ==
LOC: LR 06:34 → 2S 15:53
PROVIDERS: ADMIT Obstetrics & Gynecology; ATTEND Obstetrics & Gynecology
PROC: 10E0XZZ Delivery of Products of Conception, External Approach (ICD-10-PCS; principal; 2018-04-26)
PROC: 4A1HXCZ Monitoring of Products of Conception, Cardiac Rate, External Approach (ICD-10-PCS; 2018-04-26)
DX: O99.12 Other diseases of the blood and blood-forming organs and certain disorders involving the immune mechanism complicating childbirth (principal); Z37.0 Single live birth; O99.02 Anemia complicating childbirth; O72.1 Other immediate postpartum hemorrhage; D64.9 Anemia, unspecified; D69.6 Thrombocytopenia, unspecified; Z3A.39 39 weeks gestation of pregnancy
CPT/HCPCS: 36415; 80307; 81005; 85025; 85027; 86592; 86850; 86900; 86901; 88307; J2590; J3010; J3490

== ENCOUNTER 2018-06-12 15:57 | Emergency (ER) | payer MEDICAID ==
[2018-06-12] MEDS ORDERED: BENZONATATE 100 MG CAPSULE PO ONE (17:32)
[2018-06-12] MEDS ORDERED: PREDNISONE 20 MG TABLET PO ONE (17:32)
--- NOTE | 2018-06-12 18:00 | RADIOLOGY REPORT (SQ) ---
EXAM DESCRIPTION: CHEST 2 VIEWS COMPLETED DATE/TIME: 06/12/2018 5:52 pm REASON FOR STUDY: cough, chest pain COMPARISON: 09/04/2015 EXAM PARAMETERS: NUMBER OF VIEWS: two views TECHNIQUE: Digital Frontal and Lateral radiographic views of the chest acquired. RADIATION DOSE: NA LIMITATIONS: none FINDINGS: LUNGS AND PLEURA: No opacities, masses or pneumothorax. No pleural effusion. MEDIASTINUM AND HILAR STRUCTURES: No masses or contour abnormalities. HEART AND VASCULAR STRUCTURES: Heart normal size. No evidence for failure. BONES: No acute findings. HARDWARE: None in the chest. OTHER: No other significant finding. IMPRESSION: NO ACUTE RADIOGRAPHIC FINDING IN THE CHEST. TECHNICAL DOCUMENTATION: JOB ID: [id number] [employer]- All Rights Reserved Reading location - IP/workstation name: [email or web address]
--- NOTE | 2018-06-12 18:08 | ER Document Report ---
HPI - HPI Time Seen by Provider: 06/12/18 17:13 Pain Level: 4 Notes: Patient is a 28-year-old female who presents with chief complaint of cough over the last 2 weeks which preceded some right sided chest pain and right neck pain. Patient reports that the cough has resolved but the pain to the right side of her chest remains. Patient reports the pain is worse when she takes a deep breath but denies any shortness of breath. Patient does not have any history of DVT or PE. Denies any recent long travel, is not on any OCPs. Patient is a smoker. - CONSTITUTIONAL Constitutional: DENIES: Fever, Chills - CARDIOVASCULAR Cardiovascular: REPORTS: Chest pain - RESPIRATORY Respiratory: REPORTS: Coughing - REPRODUCTIVE Reproductive: DENIES: : Past Medical History - General Information source: Patient - Social History Smoking Status: Current Every Day Smoker Frequency of alcohol use: None Drug Abuse: None Family History: CAD, CVA, Hyperlipidemia Patient has suicidal ideation: No Patient has homicidal ideation: No Pulmonary Medical History: Reports: Hx Bronchitis Renal/ Medical History: Reports: Hx Ectopic - left, had surgery, milked it out by 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 Denies: Hx Peritoneal Dialysis, Hx Pelvic Inflammatory Disease Musculoskeletal Medical History: Reports Hx Musculoskeletal Trauma Traumatic Medical History: Reports: Hx Fractures Past Surgical History: Reports: Hx Gynecologic Surgery - ectopic - Immunizations Immunizations up to date: Yes Hx Diphtheria, Pertussis, Tetanus Vaccination: Yes - 2011 Vertical Provider Document - CONSTITUTIONAL Notes: PHYSICAL EXAMINATION: GENERAL: Well-appearing, well-nourished and in no acute distress. HEAD: Atraumatic, normocephalic. EYES: Pupils equal round extraocular movements intact, conjunctiva are normal. ENT: Nares patent NECK: Normal range of motion LUNGS: No respiratory distress, lung sounds clear and equal bilaterally in all joy. No crepitus or deformity on palpation to anterior or posterior chest wall. No ecchymosis noted. Musculoskeletal: Normal range of motion NEUROLOGICAL: Normal speech, normal gait. PSYCH: Normal mood, normal affect. SKIN: Warm, Dry, normal turgor, no rashes or lesions noted. - INFECTION CONTROL TRAVEL OUTSIDE OF THE [place] IN LAST 30 DAYS: No Course - Re-evaluation Re-evalutation: Patient's vital signs are within normal limits on arrival. Her physical examination is without any acute findings. Patient is calm, cooperative and in no acute distress. A chest x-ray was performed and shows no acute findings. Patient is 6 weeks and is a smoker. Will draw a d-dimer although my suspicion of a PE is unlikely I feel it is important to rule it out. Per PERC criteria she has ruled out. D-dimer is negative. Repeat vital signs are within normal limits. Patient will be discharged home at this time. - Vital Signs Vital signs: Temp Pulse Resp BP Pulse Ox 98.2 F 88 14 107/75 98 06/12/18 16:05 06/12/18 16:05 06/12/18 16:05 06/12/18 16:05 06/12/18 16:05 Discharge - Discharge Clinical Impression: Cough Cervical strain Qualifiers: Encounter type: initial encounter Qualified Code(s): S16.1XXA - Strain of muscle, fascia and tendon at neck level, initial encounter Condition: Stable Disposition: HOME, SELF-CARE Additional Instructions: Your chest x-ray was normal today and there is no evidence of you having a pneumonia. The blood work we took today looking for signs of a blood clot was also normal. The pain you are experiencing is most likely a strain caused by the coughing that you have had over the last several weeks. I am prescribing you two different types of cough medications one of them is for daytime use and one of them is for nighttime use definitely do not drink any alcohol or drive while you are taking the nighttime cough syrup. Continue to take Tylenol or ibuprofen for any pain. Return to the emergency department if you develop a fever, worsening pain or any other symptom that is concerning to you. Prescriptions: Codeine Phosphate/Guaifenesin [Guaifenesin-Codeine Syrup] 10 ml PO QHS #100 ml Benzonatate [Tessalon Perles 100 mg Capsule] 100 mg PO Q8HP PRN #20 capsule PRN Reason: Referrals: LAURA MCFARLANE MD [Primary Care Provider] - Follow up as needed
[2018-06-12] MEDS ORDERED: GUAIFENESIN/CODEINE PHOS 100-10 MG/ 5 ML UDC PO ONE (18:09)
[2018-06-12 18:27] VITALS: BP 120/75
== END 2018-06-12 18:32 | disposition home or self-care (01) ==
LOC: ER 15:57
DX: O99.89 Other specified diseases and conditions complicating pregnancy, childbirth and the puerperium (principal); S16.1XXA Strain of muscle, fascia and tendon at neck level, initial encounter; R05 Cough; R07.9 Chest pain, unspecified; M54.2 Cervicalgia; X58.XXXA Exposure to other specified factors, initial encounter; F17.200 Nicotine dependence, unspecified, uncomplicated
CPT/HCPCS: 99283; 36415; 85379; 71046; J3490; J7512

== ENCOUNTER 2018-07-17 09:29 | Emergency (ER) | payer MEDICAID ==
[2018-07-17 09:36] VITALS: BP 119/70
[2018-07-17 10:55] LABS: APPEARANCE,URINE SLIGHTLY-CLOUDY; BILIRUBIN,URINE NEGATIVE (NEGATIVE); COLOR,URINE YELLOW; GLUCOSE, URINE NEGATIVE (NEGATIVE); KETONES,URINE NEGATIVE (NEGATIVE); LEUKOCYTE ESTERASE,URINE TRACE (NEGATIVE); NITRITE,URINE NEGATIVE (NEGATIVE); PROTEIN,URINE NEGATIVE (NEGATIVE); URINE SPECIFIC GRAVITY 1.013; UROBILINOGEN,URINE NEGATIVE mg/dL (<2.0)
--- NOTE | 2018-07-17 11:17 | ER Document Report ---
ED GI/ - General Chief Complaint: Urinary Problem Stated Complaint: FLANK PAIN Time Seen by Provider: 07/17/18 10:44 Primary Care Provider: LAURA MCFARLANE MD [Primary Care Provider] - Follow up in 3-5 days Mode of Arrival: Ambulatory Information source: Patient Notes: 28-year-old female presents to ED for complaint of pain frequency urgency and burning with urination. She states she was nauseated yesterday and had right flank pain. She states that she had recently been to the doctor and they told her she did not have a urinary tract infection. She states she is continued to have pain. Patient respirations are regular and unlabored speaking in full sentences walk with a even steady gait and in no acute distress TRAVEL OUTSIDE OF THE [place] IN LAST 30 DAYS: No - HPI Patient complains to provider of: Flank pain, Other - Frequency urgency burning Onset: Other - Couple days Quality of pain: Burning Severity at maximum: Severe Severity in ED: Severe Pain Level: 5 Location: Right flank Vaginal bleeding (Compared to normal period): None Associated symptoms: Radiates to back, Urinary frequency, Urinary urgency Exacerbated by: Denies Relieved by: Denies Similar symptoms previously: Yes Recently seen / treated by doctor: Yes - Related Data Allergies/Adverse Reactions: No Known Allergies Allergy (Verified 07/17/18 09:33) Past Medical History - General Information source: Patient - Social History Smoking Status: Current Every Day Smoker Cigarette use (# per day): Yes - 8 cigarettes a day Smoking Education Provided: Yes - 4 minutes Frequency of alcohol use: None Drug Abuse: None Lives with: Parents Family History: CAD, CVA, Hyperlipidemia Patient has suicidal ideation: No Patient has homicidal ideation: No - Past Medical History Cardiac Medical History: Reports: None Pulmonary Medical History: Reports: Hx Bronchitis EENT Medical History: Reports: None Neurological Medical History: Reports: None Endocrine Medical History: Reports: None Renal/ Medical History: Reports: Hx Ectopic - left, had surgery, milked it out by medical assistant ob gyn, Hx Ovarian Cysts Malignancy Medical History: Reports: None GI Medical History: Reports: None Musculoskeletal Medical History: Reports Hx Musculoskeletal Trauma Skin Medical History: Reports None Psychiatric Medical History: Reports: None Traumatic Medical History: Reports: Hx Fractures - Arm Infectious Medical History: Reports: None Past Surgical History: Reports: Hx Gynecologic Surgery - ectopic - Immunizations Immunizations up to date: Yes Hx Diphtheria, Pertussis, Tetanus Vaccination: Yes - 2011 Review of Systems - Review of Systems Constitutional: No symptoms reported EENT: No symptoms reported Cardiovascular: No symptoms reported Respiratory: No symptoms reported Gastrointestinal: No symptoms reported Genitourinary: No symptoms reported Female Genitourinary: No symptoms reported Musculoskeletal: No symptoms reported Skin: No symptoms reported Hematologic/Lymphatic: No symptoms reported Neurological/Psychological: No symptoms reported -: Yes All other systems reviewed and negative Physical Exam - Vital signs Vitals: Temp Pulse Resp BP Pulse Ox 98.1 F 96 14 119/70 98 07/17/18 09:34 07/17/18 09:34 07/17/18 09:34 07/17/18 09:34 07/17/18 09:34 Interpretation: Normal - General General appearance: Appears well, Alert - HEENT Head: Normocephalic, Atraumatic Eyes: Normal Pupils: PERRL - Respiratory Respiratory status: No respiratory distress Chest status: Nontender Breath sounds: Normal Chest palpation: Normal - Cardiovascular Rhythm: Regular Heart sounds: Normal auscultation Murmur: No - Abdominal Inspection: Normal Distension: No distension Bowel sounds: Normal Tenderness: Nontender Organomegaly: No organomegaly - Back Back: Normal, Tender, CVA tenderness - Right. No: Deformity/step-off, Vertebra tenderness, Scars, Scoliosis, Wounds - Extremities General upper extremity: Normal inspection, Nontender, Normal color, Normal ROM, Normal temperature General lower extremity: Normal inspection, Nontender, Normal color, Normal ROM, Normal temperature, Normal weight bearing. No: Sergey's sign - Neurological Neuro grossly intact: Yes Cognition: Normal Orientation: AAOx4 [place] Coma Scale Eye Opening: Spontaneous [place] Coma Scale Verbal: Oriented [place] Coma Scale Motor: Obeys Commands [place] Coma Scale Total: 15 Speech: Normal Motor strength normal: LUE, RUE, LLE, RLE Sensory: Normal - Psychological Associated symptoms: Normal affect, Normal mood - Skin Skin Temperature: Warm Skin Moisture: Dry Skin Color: Normal Course - Re-evaluation Re-evalutation: 07/17/18 22:22 Discussed urine with patient. Patient was given instructions on Tylenol Motrin and warm cold packs. Patient was also instructed to follow-up with her primary doctor as her urine is negative for UTI. - Vital Signs Vital signs: Temp Pulse Resp BP Pulse Ox 98.1 F 96 14 119/70 98 07/17/18 09:34 07/17/18 09:34 07/17/18 09:34 07/17/18 09:34 07/17/18 09:34 - Laboratory Laboratory results interpreted by me: 07/17/18 10:14 Ur Leukocyte Esterase TRACE H Discharge - Discharge Clinical Impression: Pain with urination Condition: Stable Disposition: HOME, SELF-CARE Additional Instructions: You were seen today for pain with urination. Your urinalysis was negative for UTI at this time we will send it for culture and sensitivity. Please increase your p.o. fluids non-caffeinated to 8-10 glasses a day. FOLLOW-UP CARE: If you have been referred to a physician for follow-up care, call the physicians office for an appointment as you were instructed or within the next two days. If you experience worsening or a significant change in your symptoms, notify the physician immediately or return to the Emergency Department at any time for re-evaluation. Referrals: LAURA MCFARLANE MD [Primary Care Provider] - Follow up in 3-5 days
== END 2018-07-17 11:22 | disposition home or self-care (01) ==
LOC: ER 09:29
DX: R30.9 Painful micturition, unspecified (principal); R35.0 Frequency of micturition; R11.0 Nausea; R10.9 Unspecified abdominal pain; R39.15 Urgency of urination; F17.210 Nicotine dependence, cigarettes, uncomplicated
CPT/HCPCS: 81001; 87086; 87088; 99283; 99406

== ENCOUNTER 2018-07-17 23:51 | Emergency (ER) | payer MEDICAID ==
[2018-07-18 00:41] VITALS: BP 112/66
[2018-07-18] MEDS ORDERED: ONDANSETRON 4 MG TAB.RAPDIS PO ONE (02:14)
--- NOTE | 2018-07-18 02:16 | ER Document Report ---
ED Medical Screen (RME) - General Chief Complaint: Abdominal Pain Stated Complaint: ABDOMINAL PAIN Time Seen by Provider: 07/18/18 02:12 Primary Care Provider: LAURA MCFARLANE MD [Primary Care Provider] - Follow up as needed Notes: 28-year-old female, came earlier today for lower abdominal pain, had a negative urine, states she went home, ran a fever, felt more nauseated, and return. Has been nauseated with lower abdominal pain for about 3 days now. Only past medical history reported is ectopic . TRAVEL OUTSIDE OF THE [place] IN LAST 30 DAYS: No - Related Data Allergies/Adverse Reactions: No Known Allergies Allergy (Verified 07/17/18 09:33) Past Medical History Pulmonary Medical History: Reports: Hx Bronchitis Renal/ Medical History: Reports: Hx Ectopic - left, had surgery, milked it out by wardrobe image consultant, Hx Ovarian Cysts. Denies: Hx Peritoneal Dialysis, Hx Pelvic Inflammatory Disease Musculoskeltal Medical History: Reports Hx Musculoskeletal Trauma Traumatic Medical History: Reports: Hx Fractures - Arm Past Surgical History: Reports: Hx Gynecologic Surgery - ectopic - Immunizations Immunizations up to date: Yes Hx Diphtheria, Pertussis, Tetanus Vaccination: Yes - 2011 Physical Exam - Vital signs Vitals: Temp Pulse Resp BP Pulse Ox 98.6 F 102 H 18 112/66 97 07/18/18 00:39 07/18/18 00:39 07/18/18 00:39 07/18/18 00:39 07/18/18 00:39 - Abdominal Tenderness: Tender - Tender in the general lower abdominal/pelvic areas, nonspecific Course - Vital Signs Vital signs: Temp Pulse Resp BP Pulse Ox 98.6 F 102 H 18 112/66 97 07/18/18 00:39 07/18/18 00:39 07/18/18 00:39 07/18/18 00:39 07/18/18 00:39 Doctor's Discharge - Discharge Referrals: LAURA MCFARLANE MD [Primary Care Provider] - Follow up as needed
[2018-07-18 02:50] LABS: APPEARANCE,URINE SLIGHTLY-CLOUDY; BILIRUBIN,URINE NEGATIVE (NEGATIVE); COLOR,URINE YELLOW; GLUCOSE, URINE NEGATIVE (NEGATIVE); KETONES,URINE TRACE mg/dL (NEGATIVE); LEUKOCYTE ESTERASE,URINE TRACE (NEGATIVE); NITRITE,URINE NEGATIVE (NEGATIVE); PROTEIN,URINE NEGATIVE (NEGATIVE); URINE SPECIFIC GRAVITY 1.021; UROBILINOGEN,URINE NEGATIVE mg/dL (<2.0)
== END 2018-07-18 05:45 | disposition left against medical advice (07) ==
LOC: ER 23:51
DX: Z53.21 Procedure and treatment not carried out due to patient leaving prior to being seen by health care provider (principal); R10.9 Unspecified abdominal pain; R10.30 Lower abdominal pain, unspecified; R50.9 Fever, unspecified; R11.0 Nausea
CPT/HCPCS: 81001; 81025; 99281

== ENCOUNTER 2018-09-14 04:40 | Emergency (ER) | payer SELFPAY ==
[2018-09-14] MEDS ORDERED: NORMAL SALINE 1000 ML 1,000 ML IV ONE (05:14)
--- NOTE | 2018-09-14 05:17 | ER Document Report ---
ED GI/ - General Chief Complaint: Abdominal Cramping Stated Complaint: ABDOMINAL CRAMPING Time Seen by Provider: 09/14/18 05:07 Primary Care Provider: LAURA MCFARLANE MD [Primary Care Provider] - Follow up as needed Notes: Patient is a 28-year-old female that comes to the emergency department for chief complaint of lower abdominal cramping for the past several days. She states she is approximately 6 weeks by last menstrual period, G8, P6 with a one ectopic . She denies vaginal bleeding. She reports frequent vomiting with morning sickness. She denies fever chills flank pain, dysuria, vaginal discharge. Past medical history of depression, medicated, denies medications otherwise. TRAVEL OUTSIDE OF THE [place] 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 Denies: Hx Peritoneal Dialysis, Hx Pelvic Inflammatory Disease Musculoskeletal Medical History: Reports Hx Musculoskeletal Trauma Traumatic Medical History: Reports: Hx Fractures - Arm - Immunizations Immunizations up to date: Yes Hx Diphtheria, Pertussis, Tetanus Vaccination: Yes - 2011 Review of Systems - Review of Systems Constitutional: No symptoms reported EENT: No symptoms reported Cardiovascular: No symptoms reported Respiratory: No symptoms reported Gastrointestinal: See HPI Genitourinary: See HPI Female Genitourinary: See HPI Musculoskeletal: No symptoms reported Skin: No symptoms reported Hematologic/Lymphatic: No symptoms reported Neurological/Psychological: No symptoms reported Physical Exam - Vital signs Vitals: Temp Pulse Resp BP Pulse Ox 97.9 F 79 18 109/60 100 09/14/18 04:46 09/14/18 04:46 09/14/18 04:46 09/14/18 04:46 09/14/18 04:46 - Notes Notes: GENERAL: Alert, interacts well. No acute distress. HEAD: Normocephalic, atraumatic. EYES: Pupils equal, round, and reactive to light. Extraocular movements intact. ENT: Oral mucosa dry, tongue midline. Oropharynx unremarkable. Airway patent. NECK: Full range of motion. Supple. Trachea midline. LUNGS: Clear to auscultation bilaterally, no wheezes, rales, or rhonchi. No respiratory distress. HEART: Regular rate and rhythm. No murmur ABDOMEN: Soft, non-tender. Non-distended. Bowel sounds present in all 4 quadrants. GENITOURINARY: Deferred EXTREMITIES: Moves all 4 extremities spontaneously. No edema, normal radial and dorsalis pedis pulses bilaterally. No cyanosis. BACK: no cervical, thoracic, lumbar midline tenderness. No saddle anesthesia, normal distal neurovascular exam. NEUROLOGICAL: Alert and oriented x3. Normal speech. . PSYCH: Normal affect, normal mood. SKIN: Warm, dry, normal turgor. No rashes or lesions noted. Course - Re-evaluation Re-evalutation: Patient is well-appearing on exam. Abdomen is actually soft and benign without any noted tenderness. Patient does have dry mucous membranes, has reported vomiting, given IV fluids. CBC unremarkable except for some thrombocytopenia which is not significantly changed from prior. Patient is not bleeding. Urinalysis does not show infection. hCG is appropriately elevated. Ultrasound showing living intrauterine without any obvious complications. RhoGam is not indicated. Discussed with patient. Provided her with copy of her report, discussed recommendations of improved hydration at home, provided with nausea medication on request, she has had very good results with Reglan in the past. Discussed follow-up. Patient is not taking vitamins, I discussed the importance of folic acid and the complications that could develop without this. Patient states understanding and agreement. Stable at time of discharge. - Vital Signs Vital signs: Temp Pulse Resp BP Pulse Ox 98.1 F 81 17 112/62 99 09/14/18 06:56 09/14/18 06:56 09/14/18 06:56 09/14/18 06:56 09/14/18 06:56 - Laboratory Result Diagrams: 09/14/18 05:20 Laboratory results interpreted by me: 09/14/18 09/14/18 05:20 05:20 RDW 14.2 H Plt Count 137 L Beta HCG, Quant 67844.00 H Discharge - Discharge Clinical Impression: Abdominal cramping affecting Vomiting Qualifiers: Vomiting type: unspecified Vomiting Intractability: non-intractable Nausea presence: with nausea Qualified Code(s): R11.2 - Nausea with vomiting, unspecified Condition: Stable Disposition: HOME, SELF-CARE Additional Instructions: Your ultrasound shows a living in the uterus at 5 weeks and 5 days without obvious complication. 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 Take vitamins. Take Reglan as prescribed for nausea/vomiting, drink plenty fluids to avoid dehydration and cramping. Return for any concerning symptoms including severe pain, heavy bleeding, passing out, or any other concerning symptoms. Prescriptions: Metoclopramide HCl [Reglan] 5 mg PO ASDIR PRN #30 tablet PRN Reason: Forms: Return to Work Referrals: LAURA MCFARLANE MD [Primary Care Provider] - Follow up as needed
[2018-09-14 05:42] LABS: ABSOLUTE BASOPHILS # (AUTO) 0.1 10^3/uL (0.0-0.2); ABSOLUTE EOSINOPHILS # (AUTO) 0.1 10^3/uL (0.0-0.6); ABSOLUTE LYMPHOCYTES (AUTO) 1.7 10^3/uL (0.5-4.7); ABSOLUTE MONOCYTES (AUTO) 0.8 10^3/uL (0.1-1.4); ABSOLUTE NEUT (AUTO) 3.4 10^3/uL (1.7-8.2); EOSINOPHILS % (AUTO) 1.8 % (0-6); HEMATOCRIT 37.2 % (36.0-47.0); HEMOGLOBIN 12.6 g/dL (12.0-15.5); LYMPHOCYTES % (AUTO) 28.5 % (13-45); MEAN CORPUSCULAR HEMOGLOBIN 28.9 pg (27.0-33.4); MEAN CORPUSCULAR HGB CONC 33.9 g/dL (32.0-36.0); MEAN CORPUSCULAR VOLUME 85 fl (80-97); MONOCYTES % (AUTO) 12.4 % (3-13); PLATELET COUNT 137 10^3/uL (150-450); RED BLOOD COUNT 4.36 10^6/uL (3.72-5.28); RED CELL DISTRIBUTION WIDTH 14.2 % (11.5-14.0); SEGMENTED NEUTROPHILS % (AUTO) 56.3 % (42-78); TOTAL CELLS COUNTED % (AUTO) 100 %; WHITE BLOOD COUNT 6.1 10^3/uL (4.0-10.5)
[2018-09-14 05:50] LABS: APPEARANCE,URINE CLEAR; BILIRUBIN,URINE NEGATIVE (NEGATIVE); COLOR,URINE YELLOW; GLUCOSE, URINE NEGATIVE (NEGATIVE); KETONES,URINE NEGATIVE (NEGATIVE); LEUKOCYTE ESTERASE,URINE NEGATIVE (NEGATIVE); NITRITE,URINE NEGATIVE (NEGATIVE); PROTEIN,URINE NEGATIVE (NEGATIVE); URINE SPECIFIC GRAVITY 1.011; UROBILINOGEN,URINE NEGATIVE mg/dL (<2.0)
--- NOTE | 2018-09-14 06:00 | RADIOLOGY REPORT (SQ) ---
EXAM DESCRIPTION: US TRANSVAGINAL COMPLETED DATE/TME: 09/14/2018 05:17 CLINICAL HISTORY: 28 years Female, +hcg, hx ectopic, abd pain COMPARISON: None TECHNIQUE: Transvaginal. LIMITATIONS: None. FINDINGS: Living intrauterine fetus measures 5w5d with ALEX of . Cardiac activity is 165-bpm. Venus-rump length is 0.2-cm. 3.1-cm right ovary, 3.6-cm left ovary, 2.8-cm likely left corpus luteum, 3.0-cm cervical length, and no free fluid. IMPRESSION: Living 1st trimester intrauterine gestation. No evidence of complication.
[2018-09-14 06:57] VITALS: BP 112/62
== END 2018-09-14 06:57 | disposition home or self-care (01) ==
LOC: ER 04:40
DX: O26.891 Other specified pregnancy related conditions, first trimester (principal); R10.30 Lower abdominal pain, unspecified; O21.9 Vomiting of pregnancy, unspecified; O99.111 Other diseases of the blood and blood-forming organs and certain disorders involving the immune mechanism complicating pregnancy, first trimester; D69.6 Thrombocytopenia, unspecified; Z3A.01 Less than 8 weeks gestation of pregnancy
CPT/HCPCS: 99284; 86900; 86901; 36415; 84702; 85025; 81001; 76817; 93976; J7030

== ENCOUNTER 2018-11-27 17:56 | Emergency (ER) | payer MEDICAID ==
[2018-11-27 18:48] VITALS: BP 101/59
[2018-11-27] MEDS ORDERED: NORMAL SALINE 1000 ML 1,000 ML IV ONE (18:55)
[2018-11-27] MEDS ORDERED: METOCLOPRAMIDE HCL INJ/PF 10 MG/2 ML SDV IV ONE (18:55)
--- NOTE | 2018-11-27 18:58 | ER Document Report ---
Addendum entered and electronically signed by LINDA SEGURA NP 11/27/18 19:50: Discharge - Discharge Clinical Impression: Abdominal pain during in second trimester Disposition: AGAINST MEDICAL ADVICE Referrals: LAURA MCFARLANE MD [Primary Care Provider] - Follow up as needed Original Note: ED Medical Screen (RME) - General Chief Complaint: Abdominal Pain Stated Complaint: STOMACH PAIN Time Seen by Provider: 11/27/18 18:54 Primary Care Provider: LAURA MCFARLANE MD [Primary Care Provider] - Follow up as needed Mode of Arrival: Ambulatory Information source: Patient Notes: 28-year-old female presents to ED with her abdominal pain since . She states the pain is much worse after eating. She has nausea vomiting. She is patient is 16 weeks 8 para 6 with 1 ectopic removed. She states she saw FITNESS SALES CONSULTANT today and they stated that the baby is okay that if she continued to have pain she needed to be checked out for her intestines. Patient is alert oriented respirations regular and unlabored speaking in full sentences walks with a even steady gait. She states she is scared to eat anything due to the nausea vomiting and abdominal pain. She states her FITNESS SALES CONSULTANT told her to eat something light and she ate a piece of bread and had severe pain. I have greeted and performed a rapid initial assessment of this patient. A comprehensive ED assessment and evaluation of the patient, analysis of test results and completion of medical decision making process will be conducted by an additional ED providers. Dictation of this chart was performed using voice recognition software; therefore, there may be some unintended grammatical errors. TRAVEL OUTSIDE OF THE [place] IN LAST 30 DAYS: No - Related Data Allergies/Adverse Reactions: No Known Allergies Allergy (Verified 09/14/18 04:41) Past Medical History Pulmonary Medical History: Reports: Hx Bronchitis Renal/ Medical History: Reports: Hx Ectopic - left, had surgery, milked it out by drawer in [employer], Hx Ovarian Cysts. Denies: Hx Peritoneal Dialysis, Hx Pelvic Inflammatory Disease Musculoskeltal Medical History: Reports Hx Musculoskeletal Trauma Traumatic Medical History: Reports: Hx Fractures - Arm Past Surgical History: Reports: Hx Gynecologic Surgery - ectopic - Immunizations Immunizations up to date: Yes Hx Diphtheria, Pertussis, Tetanus Vaccination: Yes - 2011 Physical Exam - Vital signs Vitals: Temp Pulse Resp BP Pulse Ox 98.1 F 76 12 101/59 L 100 11/27/18 18:47 11/27/18 18:47 11/27/18 18:47 11/27/18 18:47 11/27/18 18:47 Course - Vital Signs Vital signs: Temp Pulse Resp BP Pulse Ox 98.1 F 76 12 101/59 L 100 11/27/18 18:47 11/27/18 18:47 11/27/18 18:47 11/27/18 18:47 11/27/18 18:47 Doctor's Discharge - Discharge Referrals: LAURA MCFARLANE MD [Primary Care Provider] - Follow up as needed
[2018-11-27 19:28] LABS: APPEARANCE,URINE CLEAR; BILIRUBIN,URINE NEGATIVE (NEGATIVE); COLOR,URINE STRAW; GLUCOSE, URINE NEGATIVE (NEGATIVE); KETONES,URINE NEGATIVE (NEGATIVE); LEUKOCYTE ESTERASE,URINE NEGATIVE (NEGATIVE); NITRITE,URINE NEGATIVE (NEGATIVE); PROTEIN,URINE NEGATIVE (NEGATIVE); UROBILINOGEN,URINE NEGATIVE mg/dL (<2.0)
[2018-11-27 19:29] LABS: ABSOLUTE BASOPHILS # (AUTO) 0.1 10^3/uL (0.0-0.2); ABSOLUTE EOSINOPHILS # (AUTO) 0.1 10^3/uL (0.0-0.6); ABSOLUTE LYMPHOCYTES (AUTO) 1.7 10^3/uL (0.5-4.7); ABSOLUTE MONOCYTES (AUTO) 0.8 10^3/uL (0.1-1.4); ABSOLUTE NEUT (AUTO) 4.3 10^3/uL (1.7-8.2); BASOPHILS % (AUTO) 0.8 % (0-2); EOSINOPHILS % (AUTO) 0.8 % (0-6); HEMATOCRIT 34.8 % (36.0-47.0); HEMOGLOBIN 11.6 g/dL (12.0-15.5); LYMPHOCYTES % (AUTO) 25.2 % (13-45); MEAN CORPUSCULAR HEMOGLOBIN 27.5 pg (27.0-33.4); MEAN CORPUSCULAR HGB CONC 33.3 g/dL (32.0-36.0); MEAN CORPUSCULAR VOLUME 83 fl (80-97); MONOCYTES % (AUTO) 11.3 % (3-13); PLATELET COUNT 124 10^3/uL (150-450); RED BLOOD COUNT 4.22 10^6/uL (3.72-5.28); SEGMENTED NEUTROPHILS % (AUTO) 61.9 % (42-78); TOTAL CELLS COUNTED % (AUTO) 100 %; URINE SPECIFIC GRAVITY 1.017; WHITE BLOOD COUNT 6.9 10^3/uL (4.0-10.5)
[2018-11-27 19:44] LABS: ALANINE AMINOTRANSFERASE 14 U/L (9-52); ALBUMIN 3.7 g/dL (3.5-5.0); ALKALINE PHOSPHATASE 52 U/L (38-126); ANION GAP 8 (5-19); ASPARTATE AMINO TRANSFERASE 15 U/L (14-36); BILIRUBIN,DIRECT 0.2 mg/dL (0.0-0.4); BILIRUBIN,TOTAL 0.3 mg/dL (0.2-1.3); BLOOD UREA NITROGEN 10 mg/dL (7-20); CALCIUM 9.1 mg/dL (8.4-10.2); CARBON DIOXIDE 23 mmol/L (22-30); CHLORIDE 105 mmol/L (98-107); GLUCOSE 76 mg/dL (75-110); LIPASE 53.8 U/L (23-300); POTASSIUM 4.1 mmol/L (3.6-5.0); TOTAL PROTEIN 6.7 g/dL (6.3-8.2)
--- NOTE | 2018-11-27 19:52 | ER Document Report ---
Doctor's Note Notes: 11/27/18 19:51 I reviewed with patient that she is leaving AGAINST MEDICAL ADVICE. I explained to her that her chemistry is not back. I explained to her that we cannot do a full exam until she receives a bed. Patient states she needs to go home her kids are at home and she wants to go home. I explained to her the risk or anything up to and to include . Patient stated she need to go home this to many people in front of her and she is just can go home to follow-up with the doctor tomorrow.
== END 2018-11-27 19:47 | disposition left against medical advice (07) ==
LOC: ER 17:56
DX: O26.892 Other specified pregnancy related conditions, second trimester (principal); R10.9 Unspecified abdominal pain; O21.9 Vomiting of pregnancy, unspecified; Z3A.16 16 weeks gestation of pregnancy; Z87.59 Personal history of other complications of pregnancy, childbirth and the puerperium; Z53.29 Procedure and treatment not carried out because of patient's decision for other reasons
CPT/HCPCS: 99281; 96361; 96374; 36415; 83690; 85025; 80053; 81001; J2765; J7030

== ENCOUNTER 2019-04-26 14:16 | Outpatient (CLI) | payer MEDICAID | END 2019-04-26 14:58 | disposition home or self-care (01) | LOC: LC 14:16 | PROVIDERS: ATTEND Obstetrics & Gynecology | PROC: 4A1HXCZ Monitoring of Products of Conception, Cardiac Rate, External Approach (ICD-10-PCS; principal; 2019-04-26) | DX: Z34.93 Encounter for supervision of normal pregnancy, unspecified, third trimester (principal); Z3A.37 37 weeks gestation of pregnancy | CPT/HCPCS: 59025 ==

== ENCOUNTER 2019-05-03 09:14 | Outpatient (CLI) | payer MEDICAID | END 2019-05-03 09:54 | disposition home or self-care (01) | LOC: LC 09:14 | PROVIDERS: ATTEND Obstetrics & Gynecology | PROC: 4A1HXCZ Monitoring of Products of Conception, Cardiac Rate, External Approach (ICD-10-PCS; principal; 2019-05-03) | DX: Z34.93 Encounter for supervision of normal pregnancy, unspecified, third trimester (principal); Z3A.39 39 weeks gestation of pregnancy | CPT/HCPCS: 59025 ==

== ENCOUNTER 2019-10-01 09:45 | Day surgery (SDC) | payer MEDICAID ==
[2019-09-28 13:29] LABS: HEMATOCRIT 38.7 % (36.0-47.0); HEMOGLOBIN 13.3 g/dL (12.0-15.5); MEAN CORPUSCULAR HEMOGLOBIN 28.4 pg (27.0-33.4); MEAN CORPUSCULAR HGB CONC 34.3 g/dL (32.0-36.0); MEAN CORPUSCULAR VOLUME 83 fl (80-97); PLATELET COUNT 153 10^3/uL (150-450); RED BLOOD COUNT 4.68 10^6/uL (3.72-5.28); RED CELL DISTRIBUTION WIDTH 13.6 % (11.5-14.0); WHITE BLOOD COUNT 5.6 10^3/uL (4.0-10.5)
[2019-09-28 13:34] LABS: APPEARANCE,URINE CLEAR; BILIRUBIN,URINE NEGATIVE (NEGATIVE); COLOR,URINE YELLOW; GLUCOSE, URINE NEGATIVE (NEGATIVE); KETONES,URINE NEGATIVE (NEGATIVE); LEUKOCYTE ESTERASE,URINE TRACE (NEGATIVE); NITRITE,URINE NEGATIVE (NEGATIVE); PROTEIN,URINE NEGATIVE (NEGATIVE); URINE SPECIFIC GRAVITY 1.013; UROBILINOGEN,URINE NEGATIVE mg/dL (<2.0)
[~2019-10-01 09:45] MED LIST: CEFAZOLIN 1 GM/D5W RTU 1 GM/50 ML RTUPB IV PRN; HYDROMORPHONE HCL INJ/PF 2 MG/ML AMPULE ONE; LACTATED RINGERS 1000 ML IV PRN; LIDOCAINE 0.5% INJ-PF (5 MG/ML) 50 ML SDV SUBCUT PRN; MIDAZOLAM 2 MG/2 ML INJ ONE; PROPOFOL INJ 200 MG/20 ML VIAL IV ONE
[2019-10-01] MEDS ORDERED: CEFAZOLIN 1 GM/D5W RTU 1 GM/50 ML RTUPB IV ONE (10:29)
[2019-10-01] MEDS ORDERED: DIPHENHYDRAMINE HCL 50 MG/ML VIAL IV PRN (10:31)
[2019-10-01] MEDS ORDERED: MEPERIDINE HCL/PF INJ 25 MG/1 ML DISP.SYRIN IV PRN (10:31)
[2019-10-01] MEDS ORDERED: ONDANSETRON HCL INJ/PF 4 MG/2 ML SDV IV PRN (10:31)
[2019-10-01] MEDS ORDERED: FENTANYL CITRATE INJ/PF 100 MCG/2 ML AMPUL IV PRN ×3 (10:31)
[2019-10-01] MEDS ORDERED: PROMETHAZINE HCL INJ 25 MG/1 ML VIAL IV PRN ×2 (10:31)
[2019-10-01] MEDS ORDERED: OXYCODONE-ACETAMINOPHEN 5-325 MG TABLET PO PRN ×2 (10:31)
[2019-10-01] MEDS ORDERED: BUPIVACAINE HCL 0.25 % INJ/PF (2.5 MG/1 ML) 30 ML VIAL ONE (11:09)
--- NOTE | 2019-10-01 11:57 | Operative Report ---
Operative Report DATE OF SURGERY: 10/01/19 PREOPERATIVE DIAGNOSIS: Desire for sterilization POSTOPERATIVE DIAGNOSIS: Same OPERATION: Lateral tubal occlusion using Filshie clips laparoscopically SURGEON: SHAKILA WALTER ANESTHESIA: GA TISSUE REMOVED OR ALTERED: None COMPLICATIONS: None ESTIMATED BLOOD LOSS: Negligible PROCEDURE: Patient placed in dorsal lithotomy position prepped draped sterile fashion. Speculum was placed cervix was visualized and grasped with a single-tooth tenaculum and Hulka tenaculum and was placed in single-tooth tenaculum was removed speculum is removed and the bladder drained with a catheter. Return to the abdomen where a subumbilical incision was made trocar was introduced with insufflation of the abdomen. Laparoscope was placed and visualization of the pelvis which appeared to be normal. Right fallopian tube was identified to the fimbria and a Filshie clip was placed on the proximal portion. The procedure was repeated on the left again noted to be identified to the fimbria are prior to and after banding. No other overt abnormalities were noted laparoscope was removed them deflated and the trocar sleeve was removed. Incision was closed with 0 Vicryl for fascia and 4-0 Vicryl subcutaneous for the skin. The Hulka tenaculum was removed and hemostasis was noted and procedure terminated she was taken to recovery room in good condition
[2019-10-01 14:08] VITALS: BP 120/84
[2019-10-01] MEDS ORDERED: ONDANSETRON HCL INJ/PF 4 MG/2 ML SDV ONE (14:17)
[2019-10-01] MEDS ORDERED: DEXAMETHASONE SOD PHOSPHATE INJ 4 MG/1 ML VIAL ONE (14:17)
[2019-10-01] MEDS ORDERED: KETOROLAC TROMETHAMINE 60 MG/2 ML SDV ONE (14:17)
[2019-10-01] MEDS ORDERED: LIDOCAINE 2% INJ-PF (20 MG/ML) 2 ML AMPUL ONE (14:17)
[2019-10-01] MEDS ORDERED: METOCLOPRAMIDE HCL INJ/PF 10 MG/2 ML SDV ONE (14:17)
[2019-10-01] MEDS ORDERED: SUCCINYLCHOLINE CHLORIDE INJ 200 MG/10 ML VIAL ONE (14:17)
== END 2019-10-01 14:00 | disposition home or self-care (01) ==
LOC: OROUT 09:45
PROVIDERS: ATTEND Obstetrics & Gynecology Gynecology
DX: Z30.2 Encounter for sterilization (principal); D64.9 Anemia, unspecified; Z87.891 Personal history of nicotine dependence
CPT/HCPCS: 36415; 85027; 87635; 81005; 81025; 58671; J2250; J0690; J1100; J1885; J2765; J1170; J0330; J2405; J3490 ×2; J2704; 851

== ENCOUNTER 2020-05-28 22:55 | Emergency (ER) | payer SELFPAY ==
--- NOTE | 2020-05-29 01:03 | ER Document Report ---
ED Medical Screen (RME) - General Mode of Arrival: Ambulatory TRAVEL OUTSIDE OF THE [place] IN LAST 30 DAYS: No - HPI Patient complains to provider of: Abdo pain - Related Data Home Medications: sertraline, xanax <CHRISTIANO NICHOLE - Last Filed: 05/29/20 01:02> <CHRISTIANE LOGAN - Last Filed: 05/29/20 09:08> - General Chief Complaint: Abdominal Pain Stated Complaint: ABDOMINAL AND FLANK PAIN/NAUSEA Time Seen by Provider: 05/29/20 01:00 - HPI Notes: 05/29/20 01:02 Patient with complaints of some lower abdominal pain and flank pain. She states about 9 or 10 days ago she was having some urinary symptoms. She was having some lower abdominal pain. Over the last several days she started developed lower abdominal pain is now in both flanks. No fevers. No nausea, vomiting. She has had tubal ligation in the past. Last normal menstrual cycle was at the end of April. Exam: Nontoxic, no distress. Lungs clear to go throughout. Heart sounds normal. Mild diffuse tenderness to palpation of the abdomen with some left- sided CVA tenderness to percussion. An initial examination was made on the patient as part of the triage process, and it was determined a more comprehensive evaluation was necessary. Initial orders were placed and patient was transferred to another provider in the ED who assumed care and finished evaluation and plan. (CHRISTIANO NICHOLE) - Related Data Allergies/Adverse Reactions: No Known Allergies Allergy (Verified 05/07/19 09:50) Past Medical History - Past Medical History Cardiac Medical History: Denies: Hx Coronary Artery Disease, Hx Heart Attack, Hx Hypertension Pulmonary Medical History: Reports: Hx Bronchitis - HX OF Denies: Hx Asthma, Hx COPD, Hx Pneumonia Neurological Medical History: Denies: Hx Cerebrovascular Accident, Hx Seizures Renal/ Medical History: Reports: Hx Ectopic - left, had surgery, mi lked it out by physician obstetrician, Hx Ovarian Cysts. Denies: Hx Peritoneal Dialysis, Hx Pelvic Inflammatory Disease Musculoskeltal Medical History: Denies Hx Arthritis, Reports Hx Musculoskeletal Trauma Traumatic Medical History: Reports: Hx Fractures - Arm Past Surgical History: Reports: Hx Gynecologic Surgery - ectopic - Immunizations Immunizations up to date: Yes Hx Diphtheria, Pertussis, Tetanus Vaccination: Yes - 2011 <CHRISTIANO NICHOLE - Last Filed: 05/29/20 01:02> Physical Exam - Vital signs Vitals: Temp Pulse Resp BP Pulse Ox 97.9 F 73 19 117/49 L 100 05/28/20 23:37 05/28/20 23:37 05/28/20 23:37 05/28/20 23:37 05/28/20 23:37 Course - Laboratory Results Result Diagrams: 05/29/20 01:54 05/29/20 01:54 <CHRISTIANE LOGAN - Last Filed: 05/29/20 09:08> - Vital Signs Vital signs: Temp Pulse Resp BP Pulse Ox 97.9 F 65 19 107/70 100 05/28/20 23:37 05/29/20 04:12 05/28/20 23:37 05/29/20 04:12 05/29/20 04:12 - Laboratory Results Laboratory Results Interpreted: 05/29/20 01:54 Urine Urobilinogen 2.0 H
[2020-05-29 02:10] LABS: ABSOLUTE BASOPHILS # (AUTO) 0.1 10^3/uL (0.0-0.2); ABSOLUTE EOSINOPHILS # (AUTO) 0.1 10^3/uL (0.0-0.6); ABSOLUTE LYMPHOCYTES (AUTO) 2.4 10^3/uL (0.5-4.7); ABSOLUTE MONOCYTES (AUTO) 0.5 10^3/uL (0.1-1.4); ABSOLUTE NEUT (AUTO) 3.2 10^3/uL (1.7-8.2); BASOPHILS % (AUTO) 1.2 % (0-2); EOSINOPHILS % (AUTO) 1.9 % (0-6); HEMATOCRIT 37.8 % (36.0-47.0); HEMOGLOBIN 12.4 g/dL (12.0-15.5); LYMPHOCYTES % (AUTO) 38.7 % (13-45); MEAN CORPUSCULAR HGB CONC 32.9 g/dL (32.0-36.0); MEAN CORPUSCULAR VOLUME 82 fl (80-97); MONOCYTES % (AUTO) 7.7 % (3-13); PLATELET COUNT 172 10^3/uL (150-450); RED CELL DISTRIBUTION WIDTH 13.7 % (11.5-14.0); SEGMENTED NEUTROPHILS % (AUTO) 50.5 % (42-78); TOTAL CELLS COUNTED % (AUTO) 100 %; WHITE BLOOD COUNT 6.3 10^3/uL (4.0-10.5)
[2020-05-29 02:26] LABS: ALBUMIN 4.7 g/dL (3.5-5.0); ALKALINE PHOSPHATASE 69 U/L (38-126); ANION GAP 8 (5-19); ASPARTATE AMINO TRANSFERASE 22 U/L (14-36); BILIRUBIN,DIRECT 0.3 mg/dL (0.0-0.4); BILIRUBIN,TOTAL 0.3 mg/dL (0.2-1.3); BLOOD UREA NITROGEN 13 mg/dL (7-20); CALCIUM 9.5 mg/dL (8.4-10.2); CARBON DIOXIDE 29 mmol/L (22-30); CHLORIDE 106 mmol/L (98-107); GLUCOSE 96 mg/dL (75-110); POTASSIUM 4.3 mmol/L (3.6-5.0); TOTAL PROTEIN 7.6 g/dL (6.3-8.2)
[2020-05-29 02:28] LABS: APPEARANCE,URINE CLEAR; BILIRUBIN,URINE NEGATIVE (NEGATIVE); COLOR,URINE YELLOW; GLUCOSE, URINE NEGATIVE (NEGATIVE); KETONES,URINE NEGATIVE (NEGATIVE); LEUKOCYTE ESTERASE,URINE NEGATIVE (NEGATIVE); NITRITE,URINE NEGATIVE (NEGATIVE); PROTEIN,URINE NEGATIVE (NEGATIVE); URINE SPECIFIC GRAVITY 1.029
--- NOTE | 2020-05-29 03:26 | RADIOLOGY REPORT (SQ) ---
CLINICAL HISTORY: lower abd pain, bilateral flank pain for about 10 days. no v/d COMPARISON: None. TECHNIQUE: CT ABDOMEN PELVIS WITHOUT IV CONTRAST on 05/29/2020 1:01 AM COMPUTER TECH This exam was performed according to our departmental dose-optimization program, which includes automated exposure control, adjustment of the mA and/or kV according to patient size and/or use of iterative reconstruction technique. FINDINGS: Lower lungs are clear. Abdomen: The liver is normal in appearance. There is no biliary dilatation. Gallbladder is normal in appearance. The pancreas and spleen are normal in appearance. There is a 2 mm upper pole left renal calculus. There is a 2 mm lower pole right renal calculus. Adrenal glands are normal. Abdominal aorta is normal in course and caliber without aneurysm. There is no free air. There is no retroperitoneal adenopathy. Pelvis: There is no bowel obstruction. Urinary bladder is unremarkable. There is no free fluid. Uterus is normal in size with bilateral tubal ligation clips. Appendix is normal. Skeleton: There are no acute osseous findings. No suspicious bony lesions. IMPRESSION: Minimal bilateral nephrolithiasis without hydronephrosis.
[2020-05-29] MEDS ORDERED: ACETAMINOPHEN 325 MG TABLET PO ONE (04:14)
[2020-05-29] MEDS ORDERED: KETOROLAC TROMETHAMINE INJ/PF 30 MG/1 ML SDV IM ONE (09:08)
--- NOTE | 2020-05-29 09:15 | ER Document Report ---
ED GI/ - General Chief Complaint: Abdominal Pain Stated Complaint: ABDOMINAL AND FLANK PAIN/NAUSEA Time Seen by Provider: 05/29/20 01:00 Primary Care Provider: [facility] [Provider Group] - Follow up as needed ANIL SZYMANSKI DO [Primary Care Provider] - Follow up as needed Mode of Arrival: Ambulatory Notes: This 30-year-old woman presents to the emergency department with a 9 to 10-day history of flank pain and lower abdominal pain. She states that the symptoms are at times more severe and intermittently associated with nausea. She has had no vomiting. She denies dysuria, urgency or frequency. She is an otherwise healthy 30-year-old states that she is not . TRAVEL OUTSIDE OF THE [place] IN LAST 30 DAYS: No - Related Data Allergies/Adverse Reactions: No Known Allergies Allergy (Verified 05/07/19 09:50) Home Medications: sertraline, xanax Past Medical History - Social History Smoking Status: Former Smoker Family History: CAD, CVA, Hyperlipidemia - Past Medical History Cardiac Medical History: Denies: Hx Coronary Artery Disease, Hx Heart Attack, Hx Hypertension Pulmonary Medical History: Reports: Hx Bronchitis - HX OF Denies: Hx Asthma, Hx COPD, Hx Pneumonia Neurological Medical History: Denies: Hx Cerebrovascular Accident, Hx Seizures Renal/ Medical History: Reports: Hx Ectopic - left, had surgery, 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 Denies: Hx Peritoneal Dialysis, Hx Pelvic Inflammatory Disease Musculoskeletal Medical History: Denies Hx Arthritis, Reports Hx Musculoskeletal Trauma Traumatic Medical History: Reports: Hx Fractures - Arm Past Surgical History: Reports: Hx Gynecologic Surgery - ectopic - Immunizations Immunizations up to date: Yes Hx Diphtheria, Pertussis, Tetanus Vaccination: Yes - 2011 Review of Systems - Review of Systems Notes: Constitutional: Negative for fever. HENT: Negative for sore throat. Eyes: Negative for visual changes. Cardiovascular: Negative for chest pain. Respiratory: Negative for shortness of breath. Gastrointestinal: Negative for abdominal pain, vomiting or diarrhea. Genitourinary: Negative for dysuria. Musculoskeletal: See HPI Skin: Negative for rash. Neurological: Negative for headaches, weakness or numbness. 10 point ROS negative except as marked above and in HPI. Physical Exam - Vital signs Vitals: Temp Pulse Resp BP Pulse Ox 97.9 F 73 19 117/49 L 100 05/28/20 23:37 01/06/21 23:37 05/28/20 23:37 05/28/20 23:37 05/28/20 23:37 - Notes Notes: PHYSICAL EXAMINATION: Physical Exam: General: Well-nourished well-developed 30-year-old woman in no acute distress HEENT: NC/AT, pupils equal round and reactive to light, MM moist,nares clear, oropharynx clear, airway patent Neck: supple, no adenopathy, no masses. Good range of motion Lungs: clear, no wheezing, no rales no rhonchi CVS: Regular rate and rhythm no murmur gallop or rub Abdomen: Soft, active, nontender, no masses, no hepatosplenomegaly Back: No CVA tenderness Ext: No edema, clubbing or cyanosis. Neuro: Alert and responsive, moving all 4 extremities on command, cranial nerves intact, no focal findings Skin: Intact no open lesions, no rash PSYCH: Normal mood, normal affect. Course - Re-evaluation Re-evalutation: 05/29/20 09:12 Reviewed the labs and the imaging and discussed the findings with the patient. She does have what appear to be stable bilateral kidney stones with no hy dronephrosis. The urine does not reveal infection and there is a normal white blood cell count. I explained to the patient that her symptoms could be related to your kidneys however it would be unusual. We are giving her Toradol in the emergency department I have discharged her with anti-inflammatory pain medication and Zofran for nausea. I encouraged her to follow-up as an outpatient. We have given her that outpatient clinic at the [facility]. - Vital Signs Vital signs: Temp Pulse Resp BP Pulse Ox 98.1 F 61 16 110/72 100 05/29/20 09:36 05/29/20 09:36 05/29/20 09:36 05/29/20 09:36 05/29/20 09:36 - Laboratory Results Result Diagrams: 05/29/20 01:54 05/29/20 01:54 Laboratory Results Interpreted: 05/29/20 01:54 Urine Urobilinogen 2.0 H Critical Laboratory Results Reviewed: No Critical Results - Radiology Results Radiology Results Interpreted: 05/29/20 09:11 Abdomen/Pelvis CT 05/29/20 01:01 IMPRESSION: Minimal bilateral nephrolithiasis without hydronephrosis. Critical Radiology Results Reviewed: No Critical Results Discharge - Discharge Clinical Impression: Bilateral flank pain, Bilateral kidney stones Condition: Good Disposition: HOME, SELF-CARE Instructions: Flank Pain ([facility]), Toradol Injection ([facility]) Additional Instructions: You were seen in the emergency department with a history of bilateral flank pain and some lower abdominal pain. Your evaluation revealed bilateral kidney stones. They appear to be stable and not obstructing flow. I have given you an anti-inflammatory medication along with Zofran for nausea. You will need to follow-up as an outpatient with your primary care doctor for further management. If his symptoms are worsening or if you have other concerns you may return to the emergency department for further evaluation and treatment HOME CARE INSTRUCTIONS & INFORMATION: Thank you for choosing us for your medical needs. We hope you're satisfied with the care you received. After you leave, you must properly care for your problem and, at the same time, observe its progress. Any condition can change. Some illnesses can change rapidly over hours or days. If your condition worsens, return to the Emergency Department or see your physician promptly. ABOUT YOUR X-RAYS AND EKG'S: If you had an EKG or X-rays taken, they have been read by the Emergency Physician. The X-rays and EKG's will also be read by a Radiologist or Sdet within 24 hours. If discrepancies are noted, you will be notified by telephone. Please be certain the ED has a correct telephone number & address where you can be reached. Also, realize that some fractures or abnormalities do not show up on initial X-rays. If your symptoms continue, see your physician. ABOUT YOUR LABORATORY TEST: If you had laboratory tests, the results have been reviewed by the Emergency Physician. Some test results (for example cultures) may not be available for several days. You will be contacted if any test result shows you need additional treatment. Please be certain the ED has a correct telephone number and address where you can be reached. ABOUT YOUR MEDICATIONS: You will receive instructions on how to take your medicine on the prescription label you receive. Additional information may be p rovided by the Pharmacy. If you have questions afterwards, call the ED for clarification or further instructions. Some prescribed medications may cause drowsiness. Do not perform tasks such as driving a car or operating machinery without consulting your Pharmacist. If you feel you need a refill of pain medication, your condition will need re-evaluation. Please do not call for a refill of any medication. ABOUT YOUR SIGNATURE: Signature of this document acknowledges to followin. Understanding that you received emergency treatment and that you may be released before al medical problems are known or treated. Please be certain the ED has a correct phone number & address where you can be reached. 2. Acknowledgement that you will arrange for follow-up care as recommended. 3. Authorization for the Emergency Physician to provide information to your follow-up Physician in order to maximize your care. AT ANY TIME, IF YOUR SYMPTOMS CHANGE SIGNIFICANTLY OR WORSEN OR YOU DEVELOP NEW SYMPTOMS, RETURN TO THE EMERGENCY DEPARTMENT IMMEDIATELY FOR RE-EVALUATION. OUR GOAL IS TO PROVIDE EXCELLENT MEDICAL CARE! WE HOPE THAT WE HAVE MET YOUR EXPECTATIONS DURING YOUR EMERGENCY DEPARTMENT VISIT AND THAT YOU FEEL YOU HAVE RECEIVED EXCELLENT CARE! Prescriptions: Naproxen [Naprosyn] 500 mg PO BID PRN #20 tablet PRN Reason: For Pain Ondansetron [Zofran Odt 4 mg Tablet] 1 - 2 tab PO Q4H PRN #10 tab.rapdis PRN Reason: For Nausea/Vomiting Referrals: ANIL SZYMANSKI DO [Primary Care Provider] - Follow up as needed [facility] [Provider Group] - Follow up as needed
[2020-05-29 09:37] VITALS: BP 110/72
== END 2020-05-29 09:37 | disposition home or self-care (01) ==
LOC: ER 22:55
DX: N20.0 Calculus of kidney (principal); R10.9 Unspecified abdominal pain; R10.30 Lower abdominal pain, unspecified; R11.0 Nausea; Z79.899 Other long term (current) drug therapy; Z87.891 Personal history of nicotine dependence
CPT/HCPCS: 99285; 96372; 36415; 83690; 84703; 85025; 80053; 81001; 74176; J1885